=== PATIENT | male | born 1945 | race Hispanic/Latino ===

== ENCOUNTER 2021-10-13 21:40 | Emergency (ER) | payer MEDICARE, OTHER ==
--- OUTSIDE RECORDS SUMMARY | 2021-10-13 21:46 | XMS REPORT | Continuity of Care Document ---
:1945 Author Organization [facility] t Address [address] [place] [address] Care Team Providers Name Role Phone Solitario, A Primary Care Physician PEDRO CALVILLO Attending Clinician Unavailable GUILLE, A Attending Clinician Unavailable Patricia Hall MD Attending Clinician Guille CAPONE, A Attending Clinician Doctor Unassigned, Name Attending Clinician Unavailable Pedro Calvillo MD Attending Clinician Daylin ROSALES Attending Clinician Rm, Surg Spec Procedure Attending Clinician Unavailable DAYLIN Attending Clinician Unavailable Nurse, Surgery Gu Attending Clinician Unavailable Abby OLVERAP, N Attending Clinician Pob, Lab Main Attending Clinician Unavailable Krishna OD Attending Clinician KRISHNA Attending Clinician Unavailable PATRICIA HALL Attending Clinician Unavailable PATRICIA HALL Attending Clinician Unavailable Payers Payer Name Policy Type Policy Number Effective Date Expiration Date S vivian JOHNSON/YVONNE [id number] 2020 MEDICARE ADVANTAGE 00:00:00 Problems Condition Condition Condition Status Onset Resolution Last Treating Co mments Source Name Details Category Date Date Treatment Clinician Date Hyperlipid Hyperlipid Disease Active U karuna emia emia 4-15 ity of 00:00: [place] [address] Medical Branch 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 2-19 it[place] [facility] [facility] knee knee Branch 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 0-14 ity of mellitus mellitus 00:00: [place] [facility] Branch Hypertensi Hypertensi Disease Active 2018-09 U nivers on on 0-14 ity of 00:00: [place] [facility] Chronic Chronic Disease Active 2018-09 Univers heart heart 0-14 ity of disease disease 00:00: [place] [facility] Arthritis Arthritis Disease Active 2018-09 Uni vers of both of both 0-14 ity of hips hips 00:00: [place] [facility] Allergies, Adverse Reactions, Alerts Allergy Allergy Status Severity Reaction(s) Onset Inactive Treating Comm ents Source Name Type Date Date Clinician NO KNOWN Drug Active Univers ALLERGIE Class ity of S [facility] Social History Social Habit Start Date Stop Date Quantity Comments Source History of tobacco Cigarette Smoker University of use [facility] Exposure to Not sure [facility] SARS-CoV-2 (event) [facility] Cigarettes smoked 2020-06-02 2020-06-02 Univers ity of current (pack per 00:00:00 00:00:00 ) - Reported Branch Tobacco use and 2020-06-02 2020-06-02 Never used Universit y of exposure 00:00:00 00:00:00 [facility] Sex Ass[birth year] Universit y of 00:00:00 00:00:00 [facility] Smoking Status Start Date Stop Date Source Current every day smoker 2020-06-02 00:00:00 Uni versity of [facility] Medications Ordered Filled Start Stop Current Ordering Indication Dosage Frequency Signature Comments Components Source Medication Medication Date Date Medication? Clinician (SIG) Name Name galantamine Yes [id number] 8mg Take 1 Univers 8 mg tablet 1-24 tablet by ity of 00:00: mouth 2 [place] (two) Medical times [place] daily. galantamine Yes [id number] 8mg Take 1 Univers 8 mg tablet 9-03 tablet by ity of 00:00: mouth 2 [place] (two) Medical times [place] daily. galantamine Yes [id number] 8mg Take 1 Univers 8 mg tablet 9-03 tablet by ity of 00:00: mouth 2 [place] (two) Medical times [place] daily. galantamine 2021-0 Yes [id number] 8mg Take 1 Univers 8 mg tablet 9-03 tablet by ity of 00:00: mouth 2 [place] 00 (two) Medical times Branch daily. galantamine 2020-0 Yes [id number] 8mg Take 1 Univers 8 mg tablet 9-03 tablet by ity of 00:00: mouth 2 [place] 00 (two) Medical times Branch daily. galantamine 2020-0 Yes [id number] 8mg Take 1 Univers 8 mg tablet 9-03 tablet by ity of 00:00: mouth 2 [place] 00 (two) Medical times Branch daily. galantamine 2020-0 Yes [id number] 8mg Take 1 Univers 8 mg tablet 9-03 tablet by ity of 00:00: mouth 2 [place] 00 (two) Medical times Branch daily. galantamine 2020-0 Yes [id number] 8mg Take 1 Univers 8 mg tablet 9-03 tablet by ity of 00:00: mouth 2 [place] 00 (two) Medical times Branch daily. galantamine 2020-0 Yes [id number] 8mg Take 1 Univers 8 mg tablet 9-03 tablet by ity of 00:00: mouth 2 [place] 00 (two) Medical times Branch daily. galantamine 2020-2021- No [id number] 8mg Take 1 Univers 8 mg tablet 9-03 01-24 tablet by it y of 00:00: 00:00 mouth 2 [place] 00 :00 (two) Medical times Branch daily. tamsulosin 2020- No [id number] .4mg Take 1 Univers (FLOMAX) 04-27 9102 capsule by ity of 0.4 mg 24 00:00: 04:59 mouth [place] hr capsule 00 :00 daily for Medi manohar 30 days. Branch tamsulosin 2020- No [id number] .4mg Take 1 Univers (FLOMAX) 04-27 9102 capsule by ity of 0.4 mg 24 00:00: 04:59 mouth [place] hr capsule 00 :00 daily for Medi manohar 30 days. Branch iopamidol 2020- No [id number] 100mL 100 mL, Univers (ISOVUE 04-10 Intravenou ity o f 370-500 mL) 16:46: 16:46 s, ONCE, 1 [place] injection 00 :00 dose, Fri Medic al 100 mL 04/10/21 at Branch 1200, Routine cephALEXin 2021-0 Yes [id number] 500mg Take 1 Univers (KEFLEX) 7-01 capsule by ity o f 500 mg 00:00: mouth 2 [place] capsule 00 (two) Medical times Branch daily. cephALEXin 2021-0 Yes [id number] 500mg Take 1 Univers (KEFLEX) 7-01 capsule by ity o f 500 mg 00:00: mouth 2 [place] capsule 00 (two) Medical times Branch daily. cephALEXin 2021-0 Yes [id number] 500mg Take 1 Univers (KEFLEX) 7-01 capsule by ity o f 500 mg 00:00: mouth 2 [place] capsule 00 (two) Medical times Branch daily. cephALEXin 2021-0 Yes [id number] 500mg Take 1 Univers (KEFLEX) 7-01 capsule by ity o f 500 mg 00:00: mouth 2 [place] capsule 00 (two) Medical times Branch daily. cephALEXin 2021-0 Yes [id number] 500mg Take 1 Univers (KEFLEX) 7-01 capsule by ity o f 500 mg 00:00: mouth 2 [place] capsule 00 (two) Medical times Branch daily. cephALEXin 2021-0 Yes [id number] 500mg Take 1 Univers (KEFLEX) 7-01 capsule by ity o f 500 mg 00:00: mouth 2 [place] capsule 00 (two) Medical times Branch daily. cephALEXin 2021-0 Yes [id number] 500mg Take 1 Univers (KEFLEX) 7-01 capsule by ity o f 500 mg 00:00: mouth 2 [place] capsule 00 (two) Medical times Branch daily. cephALEXin 2021-0 Yes [id number] 500mg Take 1 Univers (KEFLEX) 7-01 capsule by ity o f 500 mg 00:00: mouth 2 [place] capsule 00 (two) Medical times Branch daily. cephALEXin 2021-0 Yes [id number] 500mg Take 1 Univers (KEFLEX) 7-01 capsule by ity o f 500 mg 00:00: mouth 2 [place] capsule 00 (two) Medical times Branch daily. cephALEXin 2021-0 Yes [id number] 500mg Take 1 Univers (KEFLEX) 7-01 capsule by ity o f 500 mg 00:00: mouth 2 [place] capsule 00 (two) Medical times Branch daily. cephALEXin 2021-0 Yes [id number] 500mg Take 1 Univers (KEFLEX) 7-01 capsule by ity o f 500 mg 00:00: mouth 2 [place] capsule 00 (two) Medical times Branch daily. cephALEXin 2021-0 Yes [id number] 500mg Take 1 Univers (KEFLEX) 7-01 capsule by ity o f 500 mg 00:00: mouth 2 [place] capsule 00 (two) Medical times Branch daily. cephALEXin 2021-0 Yes [id number] 500mg Take 1 Univers (KEFLEX) 7-01 capsule by ity o f 500 mg 00:00: mouth 2 [place] capsule 00 (two) Medical times Branch daily. cephALEXin 2021-0 Yes [id number] 500mg Take 1 Univers (KEFLEX) 7-01 capsule by ity o f 500 mg 00:00: mouth 2 [place] capsule 00 (two) Medical times Branch daily. cephALEXin 2021-0 Yes [id number] 500mg Take 1 Univers (KEFLEX) 7-01 capsule by ity o f 500 mg 00:00: mouth 2 [place] capsule 00 (two) Medical times Branch daily. cephALEXin 2021-0 Yes [id number] 500mg Take 1 Univers (KEFLEX) 7-01 capsule by ity o f 500 mg 00:00: mouth 2 [place] capsule 00 (two) Medical times Branch daily. cephALEXin 2021-0 Yes [id number] 500mg Take 1 Univers (KEFLEX) 7-01 capsule by ity o f 500 mg 00:00: mouth 2 [place] capsule 00 (two) Medical times Branch daily. cephALEXin 2021-0 Yes [id number] 500mg Take 1 Univers (KEFLEX) 7-01 capsule by ity o f 500 mg 00:00: mouth 2 [place] capsule 00 (two) Medical times Branch daily. cephALEXin 2021-0 Yes [id number] 500mg Take 1 Univers (KEFLEX) 7-01 capsule by ity o f 500 mg 00:00: mouth 2 [place] capsule 00 (two) Medical times Branch daily. cephALEXin 2021-0 Yes [id number] 500mg Take 1 Univers (KEFLEX) 7-01 capsule by ity o f 500 mg 00:00: mouth 2 [place] capsule 00 (two) Medical times Branch daily. cephALEXin 2021-0 Yes [id number] 500mg Take 1 Univers (KEFLEX) 7-01 capsule by ity o f 500 mg 00:00: mouth 2 [place] capsule 00 (two) Medical times Branch daily. cephALEXin 2021-0 Yes [id number] 500mg Take 1 Univers (KEFLEX) 7-01 capsule by ity o f 500 mg 00:00: mouth 2 [facility] (two) Medical times Branch daily. galantamine 2020-0 Yes [id number] 8mg Take 1 Univers 8 mg tablet 3-29 tablet by ity of 00:00: mouth 2 [place] (two) Medical times Branch daily. galantamine 2020-0 Yes [id number] 8mg Take 1 Univers 8 mg tablet 3-29 tablet by ity of 00:00: mouth 2 [place] (two) Medical times Branch daily. galantamine 2020-0 Yes [id number] 8mg Take 1 Univers 8 mg tablet 3-29 tablet by ity of 00:00: mouth 2 [place] (two) Medical times Branch daily. galantamine 2020-0 Yes [id number] 8mg Take 1 Univers 8 mg tablet 3-29 tablet by ity of 00:00: mouth 2 [place] (two) Medical times Branch daily. galantamine 2020-0 Yes [id number] 8mg Take 1 Univers 8 mg tablet 3-29 tablet by ity of 00:00: mouth 2 [place] (two) Medical times Branch daily. galantamine 2020-0 Yes [id number] 8mg Take 1 Univers 8 mg tablet 3-29 tablet by ity of 00:00: mouth 2 [place] (two) Medical times Branch daily. galantamine 2020-0 Yes [id number] 8mg Take 1 Univers 8 mg tablet 3-29 tablet by ity of 00:00: mouth 2 [place] (two) Medical times Branch daily. galantamine 2020-0 Yes [id number] 8mg Take 1 Univers 8 mg tablet 3-29 tablet by ity of 00:00: mouth 2 [place] (two) Medical times Branch daily. galantamine 2020-0 Yes [id number] 8mg Take 1 Univers 8 mg tablet 3-29 tablet by ity of 00:00: mouth 2 [place] (two) Medical times Branch daily. galantamine 2020-0 Yes [id number] 8mg Take 1 Univers 8 mg tablet 3-29 tablet by ity of 00:00: mouth 2 [place] (two) Medical times Branch daily. galantamine 2020-0 Yes [id number] 8mg Take 1 Univers 8 mg tablet 3-29 tablet by ity of 00:00: mouth [place] (two) Medical times Branch daily. galantamine 2020-0 Yes [id number] 8mg Take 1 Univers 8 mg tablet 3-29 tablet by ity of 00:00: mouth [place] (two) Medical times Branch daily. galantamine 2020-0 Yes [id number] 8mg Take 1 Univers 8 mg tablet 3-29 tablet by ity of 00:00: mouth [place] (two) Medical times Branch daily. galantamine 2020-0 Yes [id number] 8mg Take 1 Univers 8 mg tablet 3-29 tablet by ity of 00:00: mouth [place] (two) Medical times Branch daily. galantamine 2020-0 Yes [id number] 8mg Take 1 Univers 8 mg tablet 3-29 tablet by ity of 00:00: mouth [place] (two) Medical times Branch daily. galantamine 2020-0 Yes [id number] 8mg Take 1 Univers 8 mg tablet 3-29 tablet by ity of 00:00: mouth [place] (two) Medical times Branch daily. galantamine 2020-0 Yes [id number] 8mg Take 1 Univers 8 mg tablet 3-29 tablet by ity of 00:00: mouth [place] (two) Medical times Branch daily. galantamine 2020-0 Yes [id number] 8mg Take 1 Univers 8 mg tablet 3-29 tablet by ity of 00:00: mouth [place] (two) Medical times Branch daily. galantamine 2020-0 Yes [id number] 8mg Take 1 Univers 8 mg tablet 3-29 tablet by ity of 00:00: mouth [place] (two) Medical times Branch daily. galantamine 2020-0 2020- No [id number] 8mg Take 1 Univers 8 mg tablet 3-29 -03 tablet by it y of 00:00: 00:00 mouth 2 [place] 00 :00 (two) Medical times Branch daily. traZODone 2019- Yes [id number] 50mg Take 1 Uni vers 50 mg 2-11 tablet by ity of tablet 00:00: mouth at [place] [address] bedtime. Medical Branch traZODone 2019-09 Yes [id number] 50mg Take 1 Uni vers 50 mg 2-11 tablet by ity of tablet 00:00: mouth at [place] [address] bedtime. Medical Branch traZODone 2020-1 Yes [id number] 50mg Take 1 Uni vers 50 mg 2-11 tablet by ity of tablet 00:00: mouth at [place] [address] bedtime. Medical Branch traZODone 2019- Yes [id number] 50mg Take 1 Uni vers 50 mg 2-11 tablet by ity of tablet 00:00: mouth at [place] [address] bedtime. Medical Branch traZODone 2019- Yes [id number] 50mg Take 1 Uni vers 50 mg 2-11 tablet by ity of tablet 00:00: mouth at [place] [address] bedtime. Medical Branch traZODone 2019- Yes [id number] 50mg Take 1 Uni vers 50 mg 2-11 tablet by ity of tablet 00:00: mouth at [place] [address] bedtime. Medical Branch traZODone 2019- Yes [id number] 50mg Take 1 Uni vers 50 mg 2-11 tablet by ity of tablet 00:00: mouth at [place] [address] bedtime. Medical Branch traZODone 2019- Yes [id number] 50mg Take 1 Uni vers 50 mg 2-11 tablet by ity of tablet 00:00: mouth at [place] [address] bedtime. Medical Branch traZODone 2019- Yes [id number] 50mg Take 1 Uni vers 50 mg 2-11 tablet by ity of tablet 00:00: mouth at [place] [address] bedtime. Medical Branch traZODone 2019- Yes [id number] 50mg Take 1 Uni vers 50 mg 2-11 tablet by ity of tablet 00:00: mouth at [place] [address] bedtime. Medical Branch traZODone 2019- Yes [id number] 50mg Take 1 Uni vers 50 mg 2-11 tablet by ity of tablet 00:00: mouth at [place] [address] bedtime. Medical Branch traZODone 2019-1 Yes [id number] 50mg Take 1 Uni vers 50 mg 2-11 tablet by ity of tablet 00:00: mouth at [place] [address] bedtime. Medical Branch traZODone 2020- Yes [id number] 50mg Take 1 Uni vers 50 mg 2-11 tablet by ity of tablet 00:00: mouth at [place] [address] bedtime. Medical Branch traZODone 2020- Yes [id number] 50mg Take 1 Uni vers 50 mg 2-11 tablet by ity of tablet 00:00: mouth at [place] [address] bedtime. Medical Branch traZODone 2019-1 Yes [id number] 50mg Take 1 Uni vers 50 mg 2-11 tablet by ity of tablet 00:00: mouth at [place] [address] bedtime. Medical Branch traZODone 2020-1 Yes [id number] 50mg Take 1 Uni vers 50 mg 2-11 tablet by ity of tablet 00:00: mouth at [place] [address] bedtime. Medical Branch traZODone 2019- Yes [id number] 50mg Take 1 Uni vers 50 mg 2-11 tablet by ity of tablet 00:00: mouth at [place] [address] bedtime. Medical Branch traZODone 2019- Yes [id number] 50mg Take 1 Uni vers 50 mg 2-11 tablet by ity of tablet 00:00: mouth at [place] [address] bedtime. Medical Branch traZODone 2019- Yes [id number] 50mg Take 1 Uni vers 50 mg 2-11 tablet by ity of tablet 00:00: mouth at [place] [address] bedtime. Medical Branch traZODone 2019- Yes [id number] 50mg Take 1 Uni vers 50 mg 2-11 tablet by ity of tablet 00:00: mouth at [place] [address] bedtime. Medical Branch traZODone 2019- Yes [id number] 50mg Take 1 Uni vers 50 mg 2-11 tablet by ity of tablet 00:00: mouth at [place] [address] bedtime. Medical Branch traZODone 2019- Yes [id number] 50mg Take 1 Uni vers 50 mg 2-11 tablet by ity of tablet 00:00: mouth at [place] [address] bedtime. Medical Branch traZODone 2019- Yes [id number] 50mg Take 1 Uni vers 50 mg 2-11 tablet by ity of tablet 00:00: mouth at [place] [address] bedtime. Medical Branch traZODone 2019-1 Yes [id number] 50mg Take 1 Uni vers 50 mg 2-11 tablet by ity of tablet 00:00: mouth at [place] [address] bedtime. Medical Branch traZODone 2020-1 Yes [id number] 50mg Take 1 Uni vers 50 mg 2-11 tablet by ity of tablet 00:00: mouth at [place] [address] bedtime. Medical Branch traZODone 2020-1 Yes [id number] 50mg Take 1 Uni vers 50 mg 2-11 tablet by ity of tablet 00:00: mouth at [place] [address] bedtime. Medical Branch traZODone 2019-1 Yes [id number] 50mg Take 1 Uni vers 50 mg 2-11 tablet by ity of tablet 00:00: mouth at [place] [address] bedtime. Medical Branch traZODone 2019- Yes [id number] 50mg Take 1 Uni vers 50 mg 2-11 tablet by ity of tablet 00:00: mouth at [place] [address] bedtime. Medical Branch traZODone 2019- Yes [id number] 50mg Take 1 Uni vers 50 mg 2-11 tablet by ity of tablet 00:00: mouth at [place] [address] bedtime. Medical Branch traZODone 2019- Yes [id number] 50mg Take 1 Uni vers 50 mg 2-11 tablet by ity of tablet 00:00: mouth at [place] [address] bedtime. Medical Branch traZODone 2019- Yes [id number] 50mg Take 1 Uni vers 50 mg 2-11 tablet by ity of tablet 00:00: mouth at [place] [address] bedtime. Medical Branch traZODone 2019- Yes [id number] 50mg Take 1 Uni vers 50 mg 2-11 tablet by ity of tablet 00:00: mouth at [place] [address] bedtime. Medical Branch traZODone 2019- Yes [id number] 50mg Take 1 Uni vers 50 mg 2-11 tablet by ity of tablet 00:00: mouth at [place] [address] bedtime. Medical Branch galantamine 2019- Yes [id number] 8mg Take 1 Univers 8 mg tablet 1-16 tablet by ity of 00:00: mouth 2 [place] (two) Medical times Branch daily. galantamine 2019-09 Yes [id number] 8mg Take 1 Univers 8 mg tablet 1-16 tablet by ity of 00:00: mouth 2 [place] (two) Medical times Branch daily. galantamine 2019- Yes [id number] 8mg Take 1 Univers 8 mg tablet 1-16 tablet by ity of 00:00: mouth 2 [place] (two) Medical times Branch daily. galantamine 2019- Yes [id number] 8mg Take 1 Univers 8 mg tablet 1-16 tablet by ity of 00:00: mouth 2 [place] (two) Medical times Branch daily. galantamine 2019- Yes [id number] 8mg Take 1 Univers 8 mg tablet 1-16 tablet by ity of 00:00: mouth 2 [place] (two) Medical times Branch daily. galantamine 2019- Yes [id number] 8mg Take 1 Univers 8 mg tablet 1-16 tablet by ity of 00:00: mouth 2 (two) Medical times Branch daily. galantamine 2019-09 Yes [id number] 8mg Take 1 Univers 8 mg tablet 1-16 tablet by ity of 00:00: mouth 2 00 (two) Medical times Branch daily. galantamine 2019-09- No [id number] 8mg Take 1 Univers 8 mg tablet 10-04 tablet by it y of 00:00: 00:00 mouth 2 00 :00 (two) Medical times Branch daily. galantamine 2019-09- No [id number] 8mg Take 1 Univers 8 mg tablet 09-27-16 tablet by it y of 00:00: 00:00 mouth 2 [place] 00 :00 (two) Medical times Branch daily. galantamine 2019-09- No [id number] 8mg Take 1 Univers 8 mg tablet 09-27-16 tablet by it y of 00:00: 00:00 mouth 2 [place] 00 :00 (two) Medical times Branch daily. galantamine 2019-09- No [id number] 8mg Take 1 Univers 8 mg tablet 09-27-16 tablet by it y of 00:00: 00:00 mouth 2 [place] 00 :00 (two) Medical times Branch daily. galantamine 2019- Yes 4mg Take 1 Univ ers 4 mg tablet 0-16 tablet by ity of 00:00: mouth (two) Medical times Branch daily. galantamine 2019- Yes 4mg Take 1 Univ ers 4 mg tablet 0-16 tablet by ity of 00:00: mouth [place] (two) Medical times Branch daily. galantamine 2019- Yes 4mg Take 1 Univ ers 4 mg tablet 0-16 tablet by ity of 00:00: mouth 2 00 (two) Medical times Branch daily. galantamine 2020- Yes 4mg Take 1 Univ ers 4 mg tablet 0-16 tablet by ity of 00:00: mouth 2 00 (two) Medical times Branch daily. galantamine 2020-1 Yes 4mg Take 1 Univ ers 4 mg tablet 0-16 tablet by ity of 00:00: mouth 2 00 (two) Medical times Branch daily. galantamine 2019- Yes 4mg Take 1 Univ ers 4 mg tablet 0-16 tablet by ity of 00:00: mouth 2 [place] 00 (two) Medical times Branch daily. galantamine 2019- 2020- No 4mg Take 1 Uni vers 4 mg tablet 0-16 11-09 tablet by it y of 00:00: 00:00 mouth 2 [place] 00 :00 (two) Medical times Branch daily. galantamine 2019- 2020- No 4mg Take 1 Uni vers 4 mg tablet 0-16 11-09 tablet by it y of 00:00: 00:00 mouth 2 [place] 00 :00 (two) Medical times Branch daily. galantamine 2019- 2020- No 4mg Take 1 Uni vers 4 mg tablet 0-16 11-09 tablet by it y of 00:00: 00:00 mouth 2 [place] 00 :00 (two) Medical times Branch daily. galantamine 2019-1 Yes 4mg Take 1 Univ ers 4 mg tablet 0-06 tablet by ity of 00:00: mouth 2 [place] 00 (two) Medical times Branch daily. galantamine 2019- 2020- No 4mg Take 1 Uni vers 4 mg tablet 0-06 10-16 tablet by it y of 00:00: 00:00 mouth 2 [place] 00 :00 (two) Medical times Branch daily. galantamine 2019- 2020- No 4mg Take 1 Uni vers 4 mg tablet 0-06 10-16 tablet by it y of 00:00: 00:00 mouth 2 [place] 00 :00 (two) Medical times Branch daily. galantamine 2019- 2020- No 4mg Take 1 Uni vers 4 mg tablet 0-06 10-16 tablet by it y of 00:00: 00:00 mouth 2 [place] 00 :00 (two) Medical times Branch daily. galantamine 2019- 2020- No 4mg Take 1 Uni vers 4 mg tablet 0-06 10-16 tablet by it y of 00:00: 00:00 mouth 2 [place] 00 :00 (two) Medical times Branch daily. galantamine 2019- 2020- No 4mg Take 1 Uni vers 4 mg tablet 0-06 10-16 tablet by it y of 00:00: 00:00 mouth 2 [place] 00 :00 (two) Medical times Branch daily. galantamine 2019-1 Yes 4mg Take 1 Univ ers 4 mg tablet 0-05 tablet by ity of 00:00: mouth 2 [place] 00 (two) Medical times Branch daily. galantamine 2019-1 Yes 4mg Take 1 Univ ers 4 mg tablet 0-05 tablet by ity of 00:00: mouth 2 [place] (two) Medical times Branch daily. galantamine 2020-1 Yes 4mg Take 1 Univ ers 4 mg tablet 0-05 tablet by ity of 00:00: mouth 2 [place] (two) Medical times Branch daily. galantamine 2020- 2020- No 4mg Take 1 Uni vers 4 mg tablet 0-05 10-06 tablet by it y of 00:00: 00:00 mouth 2 [place] 00 :00 (two) Medical times Branch daily. metFORMIN 2020-0 Yes 500mg Take 500 Uni vers 500 mg 9-14 mg by ity of tablet 18:23: mouth [address] [place] [address] (two) Medical times Branch daily with meals. metFORMIN 2020-0 Yes 500mg Take 500 Uni vers 500 mg 9-14 mg by ity of tablet 18:23: mouth [address] [place] [address] (two) Medical times Branch daily with meals. metFORMIN 2020-0 Yes 500mg Take 500 Uni vers 500 mg 9-14 mg by ity of tablet 18:23: mouth [address] [place] [address] (two) Medical times Branch daily with meals. metFORMIN 2020-0 Yes 500mg Take 500 Uni vers 500 mg 9-14 mg by ity of tablet 18:23: mouth [address] [place] [address] (two) Medical times Branch daily with meals. metFORMIN 2020-0 Yes 500mg Take 500 Uni vers 500 mg 9-14 mg by ity of tablet 18:23: mouth [address] [place] [address] (two) Medical times Branch daily with meals. metFORMIN 2020-0 Yes 500mg Take 500 Uni vers 500 mg 9-14 mg by ity of tablet 18:23: mouth [address] [place] [address] (two) Medical times Branch daily with meals. metFORMIN 2020-0 Yes 500mg Take 500 Uni vers 500 mg 9-14 mg by ity of tablet 18:23: mouth [address] [place] [address] (two) Medical times Branch daily with meals. metFORMIN 2020-0 Yes 500mg Take 500 Uni vers 500 mg 9-14 mg by ity of tablet 18:23: mouth [address] [place] [address] (two) Medical times Branch daily with meals. metFORMIN 2020-0 Yes 500mg Take 500 Uni vers 500 mg 9-14 mg by ity of tablet 18:23: mouth [address] [place] [address] (two) Medical times Branch daily with meals. metFORMIN 2020-0 Yes 500mg Take 500 Uni vers 500 mg 9-14 mg by ity of tablet 18:23: mouth 2 [place] [address] (two) Medical times Branch daily with meals. metFORMIN 2020-0 Yes 500mg Take 500 Uni vers 500 mg 9-14 mg by ity of tablet 18:23: mouth 2 [place] [address] (two) Medical times Branch daily with meals. metFORMIN 2020-0 Yes 500mg Take 500 Uni vers 500 mg 9-14 mg by ity of tablet 18:23: mouth 2 [place] 19 (two) Medical times Branch daily with meals. metFORMIN 2020-0 Yes 500mg Take 500 Uni vers 500 mg 9-14 mg by ity of tablet 18:23: mouth 2 [place] 19 (two) Medical times Branch daily with meals. metFORMIN 2020-0 Yes 500mg Take 500 Uni vers 500 mg 9-14 mg by ity of tablet 18:23: mouth 2 [place] 19 (two) Medical times Branch daily with meals. metFORMIN 2020-0 Yes 500mg Take 500 Uni vers 500 mg 9-14 mg by ity of tablet 18:23: mouth 2 [place] [address] (two) Medical times Branch daily with meals. metFORMIN 2020-0 Yes 500mg Take 500 Uni vers 500 mg 9-14 mg by ity of tablet 18:23: mouth [address] [place] [address] (two) Medical times Branch daily with meals. metFORMIN 2020-0 Yes 500mg Take 500 Uni vers 500 mg 9-14 mg by ity of tablet 18:23: mouth 2 [place] [address] (two) Medical times Branch daily with meals. metFORMIN 2020-0 Yes 500mg Take 500 Uni vers 500 mg 9-14 mg by ity of tablet 18:23: mouth 2 [place] [address] (two) Medical times Branch daily with meals. metFORMIN 2020-0 Yes 500mg Take 500 Uni vers 500 mg 9-14 mg by ity of tablet 18:23: mouth 2 [place] [address] (two) Medical times Branch daily with meals. metFORMIN 2020-0 Yes 500mg Take 500 Uni vers 500 mg 9-14 mg by ity of tablet 18:23: mouth 2 [place] 19 (two) Medical times Branch daily with meals. metFORMIN 2020-0 Yes 500mg Take 500 Uni vers 500 mg 9-14 mg by ity of tablet 18:23: mouth 2 [place] 19 (two) Medical times Branch daily with meals. metFORMIN 2020-0 Yes 500mg Take 500 Uni vers 500 mg 9-14 mg by ity of tablet 18:23: mouth 2 [place] [address] (two) Medical times Branch daily with meals. metFORMIN 2020-0 Yes 500mg Take 500 [facility] vers 500 mg 9-14 mg by ity of tablet 18:23: mouth 2 [place] [address] (two) Medical times Branch daily with meals. metFORMIN 2020-0 Yes 500mg Take 500 [facility] vers 500 mg 9-14 mg by ity of tablet 18:23: mouth 2 [place] [address] (two) Medical times Branch daily with meals. metFORMIN 2020-0 Yes 500mg Take 500 [facility] vers 500 mg 9-14 mg by ity of tablet 18:23: mouth 2 [place] [address] (two) Medical times Branch daily with meals. metFORMIN 2020-0 Yes 500mg Take 500 [facility] vers 500 mg 9-14 mg by ity of tablet 18:23: mouth 2 [place] [address] (two) Medical times Branch daily with meals. metFORMIN 2020-0 Yes 500mg Take 500 [facility] vers 500 mg 9-14 mg by ity of tablet 18:23: mouth 2 [place] [address] (two) Medical times Branch daily with meals. metFORMIN 2020-0 Yes 500mg Take 500 [facility] vers 500 mg 9-14 mg by ity of tablet 18:23: mouth [address] [place] [address] (two) Medical times Branch daily with meals. metFORMIN 2020-0 Yes 500mg Take 500 [facility] vers 500 mg 9-14 mg by ity of tablet 18:23: mouth [address] [place] [address] (two) Medical times Branch daily with meals. metFORMIN 2020-0 Yes 500mg Take 500 [facility] vers 500 mg 9-14 mg by ity of tablet 18:23: mouth 2 [place] [address] (two) Medical times Branch daily with meals. metFORMIN 2020-0 Yes 500mg Take 500 [facility] vers 500 mg 9-14 mg by ity of tablet 18:23: mouth 2 [place] [address] (two) Medical times Branch daily with meals. metFORMIN 2020-0 Yes 500mg Take 500 [facility] vers 500 mg 9-14 mg by ity of tablet 18:23: mouth 2 [place] [address] (two) Medical times Branch daily with meals. metFORMIN 2020-0 Yes 500mg Take 500 [facility] vers 500 mg 9-14 mg by ity of tablet 18:23: mouth 2 [place] [address] (two) Medical times Branch daily with meals. metFORMIN 2020-0 Yes 500mg Take 500 [facility] vers 500 mg 9-14 mg by ity of tablet 18:23: mouth 2 [place] [address] (two) Medical times Branch daily with meals. metFORMIN 2020-0 Yes 500mg Take 500 [facility] vers 500 mg 9-14 mg by ity of tablet 18:23: mouth 2 [place] [address] (two) Medical times Branch daily with meals. metFORMIN 2020-0 Yes 500mg Take 500 [facility] vers 500 mg 9-14 mg by ity of tablet 18:23: mouth 2 [place] [address] (two) Medical times Branch daily with meals. metFORMIN 2020-0 Yes 500mg Take 500 [facility] vers 500 mg 9-14 mg by ity of tablet 18:23: mouth 2 [place] 19 (two) Medical times Branch daily with meals. metFORMIN 2020-0 Yes 500mg Take 500 [facility] vers 500 mg 9-14 mg by ity of tablet 18:23: mouth 2 [place] 19 (two) Medical times Branch daily with meals. metFORMIN 2020-0 Yes 500mg Take 500 Uni vers 500 mg 9-14 mg by ity of tablet 18:23: mouth 2 [place] 19 (two) Medical times Branch daily with meals. metFORMIN 2020-0 Yes 500mg Take 500 [facility] vers 500 mg 9-14 mg by ity of tablet 18:23: mouth 2 [place] [address] (two) Medical times Branch daily with meals. metFORMIN 2020-0 Yes 500mg Take 500 [facility] vers 500 mg 9-14 mg by ity of tablet 18:23: mouth [address] [place] [address] (two) Medical times Branch daily with meals. metFORMIN 2020-0 Yes 500mg Take 500 [facility] vers 500 mg 9-14 mg by ity of tablet 18:23: mouth 2 [place] [address] (two) Medical times Branch daily with meals. metFORMIN 2020-0 Yes 500mg Take 500 [facility] vers 500 mg 9-14 mg by ity of tablet 18:23: mouth 2 [place] [address] (two) Medical times Branch daily with meals. metFORMIN 2020-0 Yes 500mg Take 500 [facility] vers 500 mg 9-14 mg by ity of tablet 18:23: mouth 2 [place] [address] (two) Medical times Branch daily with meals. metFORMIN 2020-0 Yes 500mg Take 500 [facility] vers 500 mg 9-14 mg by ity of tablet 18:23: mouth 2 [place] 19 (two) Medical times Branch daily with meals. metFORMIN 2020-0 Yes 500mg Take 500 Uni vers 500 mg 9-14 mg by ity of tablet 18:23: mouth 2 [place] 19 (two) Medical times Branch daily with meals. metFORMIN 2020-0 Yes 500mg Take 500 [facility] vers 500 mg 9-14 mg by ity of tablet 18:23: mouth 2 [place] [address] (two) Medical times Branch daily with meals. metFORMIN 2020-0 Yes 500mg Take 500 Uni vers 500 mg 9-14 mg by ity of tablet 18:23: mouth 2 [place] 19 (two) Medical times Branch daily with meals. metFORMIN 2020-0 Yes 500mg Take 500 Uni vers 500 mg 9-14 mg by ity of tablet 18:23: mouth 2 [place] 19 (two) Medical times Branch daily with meals. metFORMIN 2020-0 Yes 500mg Take 500 Uni vers 500 mg 9-14 mg by ity of tablet 13:23: mouth 2 [place] 19 (two) Medical times Branch daily with meals. metFORMIN 2020-0 Yes 500mg Take 500 Uni vers 500 mg 9-14 mg by ity of tablet 13:23: mouth 2 [place] 19 (two) Medical times Branch daily with meals. metFORMIN 2020-0 Yes 500mg Take 500 Uni vers 500 mg 9-14 mg by ity of tablet 13:23: mouth 2 [place] 19 (two) Medical times Branch daily with meals. metFORMIN 2020-0 Yes 500mg Take 500 Uni vers 500 mg 9-14 mg by ity of tablet 13:23: mouth 2 [place] 19 (two) Medical times Branch daily with meals. metFORMIN 2020-0 Yes 500mg Take 500 [facility] vers 500 mg 9-14 mg by ity of tablet 13:23: mouth 2 [place] 19 (two) Medical times Branch daily with meals. metFORMIN 2020-0 Yes 500mg Take 500 [facility] vers 500 mg 9-14 mg by ity of tablet 13:23: mouth 2 [place] 19 (two) Medical times Branch daily with meals. rivastigmin 2020-0 Yes [id number] 1{patch Apply 1 [facility] e 4.6 mg/24 9-14 } Patch to ity of hr patch 00:00: skin [place] 00 daily. Medical Branch rivastigmin 2020-0 Yes [id number] 1{patch Apply 1 [facility] e 4.6 mg/24 9-14 } Patch to ity of hr patch 00:00: skin [place] 00 daily. Medical Branch rivastigmin 2020-0 Yes [id number] 1{patch Apply 1 [facility] e 4.6 mg/24 9-14 } Patch to ity of hr patch 00:00: skin [place] 00 daily. Medical Branch rivastigmin 2020-0 Yes [id number] 1{patch Apply 1 [facility] e 4.6 mg/24 9-14 } Patch to ity of hr patch 00:00: skin [place] 00 daily. Medical Branch rivastigmin 2020-0 Yes [id number] 1{patch Apply 1 [facility] e 4.6 mg/24 9-14 } Patch to ity of hr patch 00:00: [facility] 00 daily. Medical Branch rivastigmin 2020-0 Yes [id number] 1{patch Apply 1 [facility] e 4.6 mg/24 9-14 } Patch to ity of hr patch 00:00: [facility] 00 daily. Medical Branch rivastigmin 2020-0 Yes [id number] 1{patch Apply 1 [facility] e 4.6 mg/24 9-14 } Patch to ity of hr patch 00:00: [facility] 00 daily. Medical Branch rivastigmin 2020-0 Yes [id number] 1{patch Apply 1 [facility] e 4.6 mg/24 9-14 } Patch to ity of hr patch 00:00: [facility] 00 daily. Medical Branch rivastigmin 2019-0 2020- No [id number] 1{patch Apply 1 [facility] e 4.6 mg/24 9-14 10-06 } Patch to ity of hr patch 00:00: 00:00 [facility] 00 :00 daily. Medical Branch rivastigmin 2019-0 2020- No [id number] 1{patch Apply 1 [facility] e 4.6 mg/24 9-14 10-06 } Patch to ity of hr patch 00:00: 00:00 [facility] 00 :00 daily. Medical Branch clopidogreL 2020-0 Yes 75mg Take 75 mg [facility] 75 mg 6-25 by mouth. ity of tablet 00:00: [place] [facility] glipiZIDE 2020-0 Yes 10mg Take 10 mg Un bridger 10 mg 6-25 by mouth. ity of tablet 00:00: Medical Branch losartan 50 2020-0 Yes Univer s mg tablet 6-25 ity of 00:00: [place] 00 Medical Branch metoprolol 2020-0 Yes Univers tartrate 50 6-25 ity of mg tablet 00:00: [place] [facility] pravastatin 2020-0 Yes 40mg Take 40 mg [facility] 40 mg 6-25 by mouth. ity of tablet 00:00: Medical Branch clopidogreL 2020-0 Yes 75mg Take 75 mg [facility] 75 mg 6-25 by mouth. ity of tablet 00:00: [place] [facility] glipiZIDE 2020-0 Yes 10mg Take 10 mg Un bridger 10 mg 6-25 by mouth. ity of tablet 00:00: [place] [facility] losartan 50 2020-0 Yes Univer s mg tablet 6-25 ity of 00:00: [place] [facility] metoprolol 2020-0 Yes Univers tartrate 50 6-25 ity of mg tablet 00:00: [place] [facility] pravastatin 2020-0 Yes 40mg Take 40 mg [facility] 40 mg 6-25 by mouth. ity of tablet 00:00: [place] [facility] Branch clopidogreL 2020-0 Yes 75mg Take 75 mg [facility] 75 mg 6-25 by mouth. ity of tablet 00:00: [place] [facility] Branch glipiZIDE 2020-0 Yes 10mg Take 10 mg Un bridger 10 mg 6-25 by mouth. ity of tablet 00:00: [place] [facility] Branch losartan 50 2020-0 Yes Univer s mg tablet 6-25 ity of 00:00: [place] [facility] metoprolol 2020-0 Yes Univers tartrate 50 6-25 ity of mg tablet 00:00: [address] pravastatin 2020-0 Yes 40mg Take 40 mg [facility] 40 mg 6-25 by mouth. ity of tablet 00:00: [address] clopidogreL 2020-0 Yes 75mg Take 75 mg [facility] 75 mg 6-25 by mouth. ity of tablet 00:00: [place] [facility] glipiZIDE 2020-0 Yes 10mg Take 10 mg Un bridger 10 mg 6-25 by mouth. ity of tablet 00:00: [address] losartan 50 2020-0 Yes Univer s mg tablet 6-25 ity of 00:00: [address] metoprolol 2020-0 Yes Univers tartrate 50 6-25 ity of mg tablet 00:00: [address] pravastatin 2020-0 Yes 40mg Take 40 mg [facility] 40 mg 6-25 by mouth. ity of tablet 00:00: [address] Branch clopidogreL 2020-0 Yes 75mg Take 75 mg [facility] 75 mg 6-25 by mouth. ity of tablet 00:00: [address] glipiZIDE 2020-0 Yes 10mg Take 10 mg Un bridger 10 mg 6-25 by mouth. ity of tablet 00:00: [address] Branch losartan 50 2020-0 Yes Univer s mg tablet 6-25 ity of 00:00: [place] 00 Medical Branch metoprolol 2020-0 Yes Univers tartrate 50 6-25 ity of mg tablet 00:00: [place] [facility] pravastatin 2020-0 Yes 40mg Take 40 mg [facility] 40 mg 6-25 by mouth. ity of tablet 00:00: [place] [facility] clopidogreL 2020-0 Yes 75mg Take 75 mg [facility] 75 mg 6-25 by mouth. ity of tablet 00:00: [place] [facility] glipiZIDE 2020-0 Yes 10mg Take 10 mg Un bridger 10 mg 6-25 by mouth. ity of tablet 00:00: [place] [facility] losartan 50 2020-0 Yes Univer s mg tablet 6-25 ity of 00:00: [place] [address] Medical Branch metoprolol 2020-0 Yes Univers tartrate 50 6-25 ity of mg tablet 00:00: [address] Branch pravastatin 2020-0 Yes 40mg Take 40 mg [facility] 40 mg 6-25 by mouth. ity of tablet 00:00: [place] [facility] clopidogreL 2020-0 Yes 75mg Take 75 mg [facility] 75 mg 6-25 by mouth. ity of tablet 00:00: [place] [address] Medical Branch glipiZIDE 2020-0 Yes 10mg Take 10 mg Un bridger 10 mg 6-25 by mouth. ity of tablet 00:00: [place] [address] Medical Branch losartan 50 2020-0 Yes Univer s mg tablet 6-25 ity of 00:00: [place] [address] Medical Branch metoprolol 2020-0 Yes Univers tartrate 50 6-25 ity of mg tablet 00:00: [place] [address] Medical Branch pravastatin 2020-0 Yes 40mg Take 40 mg [facility] 40 mg 6-25 by mouth. ity of tablet 00:00: [place] [address] Medical Branch clopidogreL 2020-0 Yes 75mg Take 75 mg [facility] 75 mg 6-25 by mouth. ity of tablet 00:00: [place] [address] Medical Branch glipiZIDE 2020-0 Yes 10mg Take 10 mg Un bridger 10 mg 6-25 by mouth. ity of tablet 00:00: [place] [address] Medical Branch losartan 50 2020-0 Yes Univer s mg tablet 6-25 ity of 00:00: [place] [address] Medical Branch metoprolol 2020-0 Yes Univers tartrate 50 6-25 ity of mg tablet 00:00: [place] [address] Medical Branch pravastatin 2020-0 Yes 40mg Take 40 mg [facility] 40 mg 6-25 by mouth. ity of tablet 00:00: [place] [facility] Branch clopidogreL 2020-0 Yes 75mg Take 75 mg [facility] 75 mg 6-25 by mouth. ity of tablet 00:00: [place] [facility] glipiZIDE 2020-0 Yes 10mg Take 10 mg Un bridger 10 mg 6-25 by mouth. ity of tablet 00:00: [place] [facility] Branch losartan 50 2020-0 Yes Univer s mg tablet 6-25 ity of 00:00: [place] [facility] metoprolol 2020-0 Yes Univers tartrate 50 6-25 ity of mg tablet 00:00: [address] pravastatin 2020-0 Yes 40mg Take 40 mg [facility] 40 mg 6-25 by mouth. ity of tablet 00:00: [address] Branch clopidogreL 2020-0 Yes 75mg Take 75 mg [facility] 75 mg 6-25 by mouth. ity of tablet 00:00: [place] [facility] glipiZIDE 2020-0 Yes 10mg Take 10 mg Un bridger 10 mg 6-25 by mouth. ity of tablet 00:00: [address] Branch losartan 50 2020-0 Yes Univer s mg tablet 6-25 ity of 00:00: [address] metoprolol 2020-0 Yes Univers tartrate 50 6-25 ity of mg tablet 00:00: [address] pravastatin 2020-0 Yes 40mg Take 40 mg [facility] 40 mg 6-25 by mouth. ity of tablet 00:00: [address] clopidogreL 2020-0 Yes 75mg Take 75 mg Univers 75 mg 6-25 by mouth. ity of tablet 00:00: [address] Branch glipiZIDE 2020-0 Yes 10mg Take 10 mg Un bridger 10 mg 6-25 by mouth. ity of tablet 00:00: [address] Branch losartan 50 2020-0 Yes Univer s mg tablet 6-25 ity of 00:00: [address] metoprolol 2020-0 Yes Univers tartrate 50 6-25 ity of mg tablet 00:00: [address] pravastatin 2020-0 Yes 40mg Take 40 mg [facility] 40 mg 6-25 by mouth. ity of tablet 00:00: [address] Branch clopidogreL 2020-0 Yes 75mg Take 75 mg [facility] 75 mg 6-25 by mouth. ity of tablet 00:00: [address] Branch glipiZIDE 2020-0 Yes 10mg Take 10 mg Un bridger 10 mg 6-25 by mouth. ity of tablet 00:00: [place] [facility] losartan 50 2020-0 Yes Univer s mg tablet 6-25 ity of 00:00: [place] [facility] metoprolol 2020-0 Yes Univers tartrate 50 6-25 ity of mg tablet 00:00: [place] [facility] Branch pravastatin 2020-0 Yes 40mg Take 40 mg [facility] 40 mg 6-25 by mouth. ity of tablet 00:00: [place] [facility] Branch clopidogreL 2020-0 Yes 75mg Take 75 mg [facility] 75 mg 6-25 by mouth. ity of tablet 00:00: [address] Branch glipiZIDE 2020-0 Yes 10mg Take 10 mg Un bridger 10 mg 6-25 by mouth. ity of tablet 00:00: [place] [facility] losartan 50 2020-0 Yes Univer s mg tablet 6-25 ity of 00:00: [address] metoprolol 2020-0 Yes Univers tartrate 50 6-25 ity of mg tablet 00:00: [address] pravastatin 2020-0 Yes 40mg Take 40 mg [facility] 40 mg 6-25 by mouth. ity of tablet 00:00: [address] clopidogreL 2020-0 Yes 75mg Take 75 mg [facility] 75 mg 6-25 by mouth. ity of tablet 00:00: [address] Branch glipiZIDE 2020-0 Yes 10mg Take 10 mg Un bridger 10 mg 6-25 by mouth. ity of tablet 00:00: [address] Branch losartan 50 2020-0 Yes Univer s mg tablet 6-25 ity of 00:00: [address] Branch metoprolol 2020-0 Yes Univers tartrate 50 6-25 ity of mg tablet 00:00: [address] pravastatin 2020-0 Yes 40mg Take 40 mg [facility] 40 mg 6-25 by mouth. ity of tablet 00:00: [address] Branch clopidogreL 2020-0 Yes 75mg Take 75 mg [facility] 75 mg 6-25 by mouth. ity of tablet 00:00: [place] [address] Medical Branch glipiZIDE 2020-0 Yes 10mg Take 10 mg Un bridger 10 mg 6-25 by mouth. ity of tablet 00:00: [address] Branch losartan 50 2020-0 Yes Univer s mg tablet 6-25 ity of 00:00: [place] [address] Medical Branch metoprolol 2020-0 Yes Univers tartrate 50 6-25 ity of mg tablet 00:00: [place] [facility] pravastatin 2020-0 Yes 40mg Take 40 mg [facility] 40 mg 6-25 by mouth. ity of tablet 00:00: [place] [facility] clopidogreL 2020-0 Yes 75mg Take 75 mg [facility] 75 mg 6-25 by mouth. ity of tablet 00:00: [place] [facility] glipiZIDE 2020-0 Yes 10mg Take 10 mg Un bridger 10 mg 6-25 by mouth. ity of tablet 00:00: [place] [facility] Branch losartan 50 2020-0 Yes Univer s mg tablet 6-25 ity of 00:00: [place] [facility] metoprolol 2020-0 Yes Univers tartrate 50 6-25 ity of mg tablet 00:00: [address] pravastatin 2020-0 Yes 40mg Take 40 mg [facility] 40 mg 6-25 by mouth. ity of tablet 00:00: [address] clopidogreL 2020-0 Yes 75mg Take 75 mg [facility] 75 mg 6-25 by mouth. ity of tablet 00:00: [place] [facility] Branch glipiZIDE 2020-0 Yes 10mg Take 10 mg Un bridger 10 mg 6-25 by mouth. ity of tablet 00:00: [place] [facility] Branch losartan 50 2020-0 Yes Univer s mg tablet 6-25 ity of 00:00: [place] [facility] metoprolol 2020-0 Yes Univers tartrate 50 6-25 ity of mg tablet 00:00: [address] pravastatin 2020-0 Yes 40mg Take 40 mg [facility] 40 mg 6-25 by mouth. ity of tablet 00:00: [place] [facility] Branch clopidogreL 2020-0 Yes 75mg Take 75 mg [facility] 75 mg 6-25 by mouth. ity of tablet 00:00: [address] Branch glipiZIDE 2020-0 Yes 10mg Take 10 mg Un bridger 10 mg 6-25 by mouth. ity of tablet 00:00: [address] Branch losartan 50 2020-0 Yes Univer s mg tablet 6-25 ity of 00:00: [place] [address] Medical Branch metoprolol 2020-0 Yes Univers tartrate 50 6-25 ity of mg tablet 00:00: [address] pravastatin 2020-0 Yes 40mg Take 40 mg [facility] 40 mg 6-25 by mouth. ity of tablet 00:00: [place] [facility] clopidogreL 2020-0 Yes 75mg Take 75 mg [facility] 75 mg 6-25 by mouth. ity of tablet 00:00: [place] [facility] glipiZIDE 2020-0 Yes 10mg Take 10 mg Un bridger 10 mg 6-25 by mouth. ity of tablet 00:00: [place] [facility] losartan 50 2020-0 Yes Univer s mg tablet 6-25 ity of 00:00: [place] [facility] metoprolol 2020-0 Yes Univers tartrate 50 6-25 ity of mg tablet 00:00: [address] Branch pravastatin 2020-0 Yes 40mg Take 40 mg [facility] 40 mg 6-25 by mouth. ity of tablet 00:00: [place] [address] Medical Branch clopidogreL 2020-0 Yes 75mg Take 75 mg [facility] 75 mg 6-25 by mouth. ity of tablet 00:00: [address] Branch glipiZIDE 2020-0 Yes 10mg Take 10 mg Un bridger 10 mg 6-25 by mouth. ity of tablet 00:00: [address] Branch losartan 50 2020-0 Yes Univer s mg tablet 6-25 ity of 00:00: [address] Branch metoprolol 2020-0 Yes Univers tartrate 50 6-25 ity of mg tablet 00:00: [address] pravastatin 2020-0 Yes 40mg Take 40 mg [facility] 40 mg 6-25 by mouth. ity of tablet 00:00: [address] Branch clopidogreL 2020-0 Yes 75mg Take 75 mg [facility] 75 mg 6-25 by mouth. ity of tablet 00:00: [place] [facility] glipiZIDE 2020-0 Yes 10mg Take 10 mg Un bridger 10 mg 6-25 by mouth. ity of tablet 00:00: [place] [address] Medical Branch losartan 50 2020-0 Yes Univer s mg tablet 6-25 ity of 00:00: [place] [address] Medical Branch metoprolol 2020-0 Yes Univers tartrate 50 6-25 ity of mg tablet 00:00: [address] Branch pravastatin 2020-0 Yes 40mg Take 40 mg [facility] 40 mg 6-25 by mouth. ity of tablet 00:00: [place] [address] Medical Branch clopidogreL 2020-0 Yes 75mg Take 75 mg [facility] 75 mg 6-25 by mouth. ity of tablet 00:00: [place] 00 Medical Branch glipiZIDE 2020-0 Yes 10mg Take 10 mg Un bridger 10 mg 6-25 by mouth. ity of tablet 00:00: [place] [facility] losartan 50 2020-0 Yes Univer s mg tablet 6-25 ity of 00:00: [place] [facility] metoprolol 2020-0 Yes Univers tartrate 50 6-25 ity of mg tablet 00:00: [place] [facility] pravastatin 2020-0 Yes 40mg Take 40 mg [facility] 40 mg 6-25 by mouth. ity of tablet 00:00: [place] [facility] clopidogreL 2020-0 Yes 75mg Take 75 mg [facility] 75 mg 6-25 by mouth. ity of tablet 00:00: [place] [facility] glipiZIDE 2020-0 Yes 10mg Take 10 mg Un bridger 10 mg 6-25 by mouth. ity of tablet 00:00: [place] [facility] losartan 50 2020-0 Yes Univer s mg tablet 6-25 ity of 00:00: [address] metoprolol 2020-0 Yes Univers tartrate 50 6-25 ity of mg tablet 00:00: [address] Branch pravastatin 2020-0 Yes 40mg Take 40 mg [facility] 40 mg 6-25 by mouth. ity of tablet 00:00: [address] Branch clopidogreL 2020-0 Yes 75mg Take 75 mg [facility] 75 mg 6-25 by mouth. ity of tablet 00:00: [address] Branch glipiZIDE 2020-0 Yes 10mg Take 10 mg Un bridger 10 mg 6-25 by mouth. ity of tablet 00:00: [place] [address] Medical Branch losartan 50 2020-0 Yes Univer s mg tablet 6-25 ity of 00:00: [place] [address] Medical Branch metoprolol 2020-0 Yes Univers tartrate 50 6-25 ity of mg tablet 00:00: [place] [address] Medical Branch pravastatin 2020-0 Yes 40mg Take 40 mg [facility] 40 mg 6-25 by mouth. ity of tablet 00:00: [place] [address] Medical Branch clopidogreL 2020-0 Yes 75mg Take 75 mg [facility] 75 mg 6-25 by mouth. ity of tablet 00:00: [address] Branch glipiZIDE 2020-0 Yes 10mg Take 10 mg Un bridger 10 mg 6-25 by mouth. ity of tablet 00:00: [place] [address] Medical Branch losartan 50 2020-0 Yes Univer s mg tablet 6-25 ity of 00:00: [place] [facility] metoprolol 2020-0 Yes Univers tartrate 50 6-25 ity of mg tablet 00:00: [place] [facility] pravastatin 2020-0 Yes 40mg Take 40 mg [facility] 40 mg 6-25 by mouth. ity of tablet 00:00: [place] [facility] clopidogreL 2020-0 Yes 75mg Take 75 mg [facility] 75 mg 6-25 by mouth. ity of tablet 00:00: [place] [facility] glipiZIDE 2020-0 Yes 10mg Take 10 mg Un bridger 10 mg 6-25 by mouth. ity of tablet 00:00: [place] [address] Medical Branch losartan 50 2020-0 Yes Univer s mg tablet 6-25 ity of 00:00: [place] [facility] metoprolol 2020-0 Yes Univers tartrate 50 6-25 ity of mg tablet 00:00: [address] pravastatin 2020-0 Yes 40mg Take 40 mg [facility] 40 mg 6-25 by mouth. ity of tablet 00:00: [address] Branch clopidogreL 2020-0 Yes 75mg Take 75 mg [facility] 75 mg 6-25 by mouth. ity of tablet 00:00: [address] Branch glipiZIDE 2020-0 Yes 10mg Take 10 mg Un bridger 10 mg 6-25 by mouth. ity of tablet 00:00: [place] [address] Medical Branch losartan 50 2020-0 Yes Univer s mg tablet 6-25 ity of 00:00: [place] [facility] metoprolol 2020-0 Yes Univers tartrate 50 6-25 ity of mg tablet 00:00: [address] pravastatin 2020-0 Yes 40mg Take 40 mg [facility] 40 mg 6-25 by mouth. ity of tablet 00:00: [place] [address] Medical Branch clopidogreL 2020-0 Yes 75mg Take 75 mg [facility] 75 mg 6-25 by mouth. ity of tablet 00:00: [address] Branch glipiZIDE 2020-0 Yes 10mg Take 10 mg Un bridger 10 mg 6-25 by mouth. ity of tablet 00:00: [place] [address] Medical Branch losartan 50 2020-0 Yes Univer s mg tablet 6-25 ity of 00:00: [place] [address] Medical Branch metoprolol 2020-0 Yes Univers tartrate 50 6-25 ity of mg tablet 00:00: [place] 00 Medical Branch pravastatin 2020-0 Yes 40mg Take 40 mg [facility] 40 mg 6-25 by mouth. ity of tablet 00:00: [place] [facility] clopidogreL 2020-0 Yes 75mg Take 75 mg [facility] 75 mg 6-25 by mouth. ity of tablet 00:00: [place] [facility] glipiZIDE 2020-0 Yes 10mg Take 10 mg Un bridger 10 mg 6-25 by mouth. ity of tablet 00:00: [place] [facility] losartan 50 2020-0 Yes Univer s mg tablet 6-25 ity of 00:00: [place] [facility] metoprolol 2020-0 Yes Univers tartrate 50 6-25 ity of mg tablet 00:00: [place] [facility] pravastatin 2020-0 Yes 40mg Take 40 mg [facility] 40 mg 6-25 by mouth. ity of tablet 00:00: [place] [facility] clopidogreL 2020-0 Yes 75mg Take 75 mg [facility] 75 mg 6-25 by mouth. ity of tablet 00:00: [place] [facility] glipiZIDE 2020-0 Yes 10mg Take 10 mg Un bridger 10 mg 6-25 by mouth. ity of tablet 00:00: [place] [facility] Branch losartan 50 2020-0 Yes Univer s mg tablet 6-25 ity of 00:00: [address] metoprolol 2020-0 Yes Univers tartrate 50 6-25 ity of mg tablet 00:00: [address] pravastatin 2020-0 Yes 40mg Take 40 mg [facility] 40 mg 6-25 by mouth. ity of tablet 00:00: [place] [facility] clopidogreL 2020-0 Yes 75mg Take 75 mg [facility] 75 mg 6-25 by mouth. ity of tablet 00:00: [address] Branch glipiZIDE 2020-0 Yes 10mg Take 10 mg Un bridger 10 mg 6-25 by mouth. ity of tablet 00:00: [place] [address] Medical Branch losartan 50 2020-0 Yes Univer s mg tablet 6-25 ity of 00:00: [place] [address] Medical Branch metoprolol 2020-0 Yes Univers tartrate 50 6-25 ity of mg tablet 00:00: [address] pravastatin 2020-0 Yes 40mg Take 40 mg [facility] 40 mg 6-25 by mouth. ity of tablet 00:00: [place] [address] Medical Branch clopidogreL 2020-0 Yes 75mg Take 75 mg [facility] 75 mg 6-25 by mouth. ity of tablet 00:00: [place] [facility] glipiZIDE 2020-0 Yes 10mg Take 10 mg Un bridger 10 mg 6-25 by mouth. ity of tablet 00:00: [place] [facility] losartan 50 2020-0 Yes Univer s mg tablet 6-25 ity of 00:00: [place] [facility] [facility] metoprolol 2020-0 Yes Univers tartrate 50 6-25 ity of mg tablet 00:00: [place] [facility] pravastatin 2020-0 Yes 40mg Take 40 mg Univers 40 mg 6-25 by mouth. ity of tablet 00:00: [place] [facility] clopidogreL 2020-0 Yes 75mg Take 75 mg Univers 75 mg 6-25 by mouth. ity of tablet 00:00: [place] [facility] glipiZIDE 2020-0 Yes 10mg Take 10 mg Un bridger 10 mg 6-25 by mouth. ity of tablet 00:00: [place] [facility] losartan 50 2020-0 Yes Univer s mg tablet 6-25 ity of 00:00: [place] [facility] metoprolol 2020-0 Yes Univers tartrate 50 6-25 ity of mg tablet 00:00: [address] pravastatin 2020-0 Yes 40mg Take 40 mg Univers 40 mg 6-25 by mouth. ity of tablet 00:00: [address] clopidogreL 2020-0 Yes 75mg Take 75 mg Univers 75 mg 6-25 by mouth. ity of tablet 00:00: [place] [facility] glipiZIDE 2020-0 Yes 10mg Take 10 mg Un bridger 10 mg 6-25 by mouth. ity of tablet 00:00: [place] [facility] losartan 50 2020-0 Yes Univer s mg tablet 6-25 ity of 00:00: [place] [facility] metoprolol 2020-0 Yes Univers tartrate 50 6-25 ity of mg tablet 00:00: [address] pravastatin 2020-0 Yes 40mg Take 40 mg [facility] 40 mg 6-25 by mouth. ity of tablet 00:00: [address] clopidogreL 2020-0 Yes 75mg Take 75 mg [facility] 75 mg 6-25 by mouth. ity of tablet 00:00: [address] glipiZIDE 2020-0 Yes 10mg Take 10 mg Un bridger 10 mg 6-25 by mouth. ity of tablet 00:00: [place] [facility] losartan 50 2020-0 Yes Univer s mg tablet 6-25 ity of 00:00: [place] [facility] metoprolol 2020-0 Yes Univers tartrate 50 6-25 ity of mg tablet 00:00: [place] [facility] pravastatin 2020-0 Yes 40mg Take 40 mg [facility] 40 mg 6-25 by mouth. ity of tablet 00:00: [place] [facility] clopidogreL 2020-0 Yes 75mg Take 75 mg Univers 75 mg 6-25 by mouth. ity of tablet 00:00: [place] [facility] glipiZIDE 2020-0 Yes 10mg Take 10 mg Un bridger 10 mg 6-25 by mouth. ity of tablet 00:00: [place] [facility] losartan 50 2020-0 Yes Univer s mg tablet 6-25 ity of 00:00: [place] [facility] metoprolol 2020-0 Yes Univers tartrate 50 6-25 ity of mg tablet 00:00: [place] [address] [facility] pravastatin 2020-0 Yes 40mg Take 40 mg Univers 40 mg 6-25 by mouth. ity of tablet 00:00: [place] [address] [facility] clopidogreL 2020-0 Yes 75mg Take 75 mg [facility] 75 mg 6-25 by mouth. ity of tablet 00:00: [place] [facility] glipiZIDE 2020-0 Yes 10mg Take 10 mg Un bridger 10 mg 6-25 by mouth. ity of tablet 00:00: [place] [facility] losartan 50 2020-0 Yes Univer s mg tablet 6-25 ity of 00:00: [place] [facility] metoprolol 2020-0 Yes Univers tartrate 50 6-25 ity of mg tablet 00:00: [place] [address] [facility] pravastatin 2020-0 Yes 40mg Take 40 mg [facility] 40 mg 6-25 by mouth. ity of tablet 00:00: [place] [address] [facility] clopidogreL 2020-0 Yes 75mg Take 75 mg [facility] 75 mg 6-25 by mouth. ity of tablet 00:00: [place] [address] [facility] glipiZIDE 2020-0 Yes 10mg Take 10 mg Un bridger 10 mg 6-25 by mouth. ity of tablet 00:00: [place] [address] [facility] losartan 50 2020-0 Yes Univer s mg tablet 6-25 ity of 00:00: [place] [address] [facility] metoprolol 2020-0 Yes Univers tartrate 50 6-25 ity of mg tablet 00:00: [place] [address] [facility] pravastatin 2020-0 Yes 40mg Take 40 mg Univers 40 mg 6-25 by mouth. ity of tablet 00:00: [place] [facility] clopidogreL 2020-0 Yes 75mg Take 75 mg Univers 75 mg 6-25 by mouth. ity of tablet 00:00: [place] [facility] glipiZIDE 2020-0 Yes 10mg Take 10 mg Un bridger 10 mg 6-25 by mouth. ity of tablet 00:00: [address] Branch losartan 50 2020-0 Yes Univer s mg tablet 6-25 ity of 00:00: [place] [facility] metoprolol 2020-0 Yes Univers tartrate 50 6-25 ity of mg tablet 00:00: [address] pravastatin 2020-0 Yes 40mg Take 40 mg [facility] 40 mg 6-25 by mouth. ity of tablet 00:00: [address] clopidogreL 2020-0 Yes 75mg Take 75 mg Univers 75 mg 6-25 by mouth. ity of tablet 00:00: [address] glipiZIDE 2020-0 Yes 10mg Take 10 mg Un bridger 10 mg 6-25 by mouth. ity of tablet 00:00: [address] losartan 50 2020-0 Yes Univer s mg tablet 6-25 ity of 00:00: [address] metoprolol 2020-0 Yes Univers tartrate 50 6-25 ity of mg tablet 00:00: [address] pravastatin 2020-0 Yes 40mg Take 40 mg [facility] 40 mg 6-25 by mouth. ity of tablet 00:00: [address] clopidogreL 2020-0 Yes 75mg Take 75 mg Univers 75 mg 6-25 by mouth. ity of tablet 00:00: [address] glipiZIDE 2020-0 Yes 10mg Take 10 mg Un bridger 10 mg 6-25 by mouth. ity of tablet 00:00: [address] losartan 50 2020-0 Yes Univer s mg tablet 6-25 ity of 00:00: [address] metoprolol 2020-0 Yes Univers tartrate 50 6-25 ity of mg tablet 00:00: [address] pravastatin 2020-0 Yes 40mg Take 40 mg Univers 40 mg 6-25 by mouth. ity of tablet 00:00: [address] clopidogreL 2020-0 Yes 75mg Take 75 mg Univers 75 mg 6-25 by mouth. ity of tablet 00:00: [place] [facility] glipiZIDE 2020-0 Yes 10mg Take 10 mg Un bridger 10 mg 6-25 by mouth. ity of tablet 00:00: [place] [facility] losartan 50 2020-0 Yes Univer s mg tablet 6-25 ity of 00:00: [place] [facility] metoprolol 2020-0 Yes Univers tartrate 50 6-25 ity of mg tablet 00:00: [place] [facility] pravastatin 2020-0 Yes 40mg Take 40 mg Univers 40 mg 6-25 by mouth. ity of tablet 00:00: [place] [address] [facility] clopidogreL 2020-0 Yes 75mg Take 75 mg Univers 75 mg 6-25 by mouth. ity of tablet 00:00: [place] [facility] glipiZIDE 2020-0 Yes 10mg Take 10 mg Un bridger 10 mg 6-25 by mouth. ity of tablet 00:00: [place] [facility] losartan 50 2020-0 Yes Univer s mg tablet 6-25 ity of 00:00: [place] [address] [facility] metoprolol 2020-0 Yes Univers tartrate 50 6-25 ity of mg tablet 00:00: [address] pravastatin 2020-0 Yes 40mg Take 40 mg Univers 40 mg 6-25 by mouth. ity of tablet 00:00: [address] Branch clopidogreL 2020-0 Yes 75mg Take 75 mg Univers 75 mg 6-25 by mouth. ity of tablet 00:00: [place] [address] [facility] glipiZIDE 2020-0 Yes 10mg Take 10 mg Un bridger 10 mg 6-25 by mouth. ity of tablet 00:00: [place] [address] [facility] losartan 50 2020-0 Yes Univer s mg tablet 6-25 ity of 00:00: [place] [address] [facility] metoprolol 2020-0 Yes Univers tartrate 50 6-25 ity of mg tablet 00:00: [place] [address] [facility] pravastatin 2020-0 Yes 40mg Take 40 mg [facility] 40 mg 6-25 by mouth. ity of tablet 00:00: [place] [address] [facility] clopidogreL 2020-0 Yes 75mg Take 75 mg Univers 75 mg 6-25 by mouth. ity of tablet 00:00: [place] [address] [facility] glipiZIDE 2020-0 Yes 10mg Take 10 mg Un bridger 10 mg 6-25 by mouth. ity of tablet 00:00: [place] [facility] losartan 50 2020-0 Yes Univer s mg tablet 6-25 ity of 00:00: [place] [facility] metoprolol 2020-0 Yes Univers tartrate 50 6-25 ity of mg tablet 00:00: [place] [facility] pravastatin 2020-0 Yes 40mg Take 40 mg Univers 40 mg 6-25 by mouth. ity of tablet 00:00: [place] [facility] clopidogreL 2020-0 Yes 75mg Take 75 mg Univers 75 mg 6-25 by mouth. ity of tablet 00:00: [place] [facility] glipiZIDE 2020-0 Yes 10mg Take 10 mg Un bridger 10 mg 6-25 by mouth. ity of tablet 00:00: [place] [facility] losartan 50 2020-0 Yes Univer s mg tablet 6-25 ity of 00:00: [place] [facility] metoprolol 2020-0 Yes Univers tartrate 50 6-25 ity of mg tablet 00:00: [address] pravastatin 2020-0 Yes 40mg Take 40 mg Univers 40 mg 6-25 by mouth. ity of tablet 00:00: [address] Branch clopidogreL 2020-0 Yes 75mg Take 75 mg Univers 75 mg 6-25 by mouth. ity of tablet 00:00: [address] glipiZIDE 2020-0 Yes 10mg Take 10 mg Un bridger 10 mg 6-25 by mouth. ity of tablet 00:00: [address] Branch losartan 50 2020-0 Yes Univer s mg tablet 6-25 ity of 00:00: [address] metoprolol 2020-0 Yes Univers tartrate 50 6-25 ity of mg tablet 00:00: [address] pravastatin 2020-0 Yes 40mg Take 40 mg Univers 40 mg 6-25 by mouth. ity of tablet 00:00: [place] [address] [facility] clopidogreL 2020-0 Yes 75mg Take 75 mg Univers 75 mg 6-25 by mouth. ity of tablet 00:00: [address] Branch glipiZIDE 2020-0 Yes 10mg Take 10 mg Un bridger 10 mg 6-25 by mouth. ity of tablet 00:00: [address] Branch losartan 50 2020-0 Yes Univer s mg tablet 6-25 ity of 00:00: [address] Branch metoprolol 2020-0 Yes Univers tartrate 50 6-25 ity of mg tablet 00:00: [place] [facility] pravastatin 2020-0 Yes 40mg Take 40 mg Univers 40 mg 6-25 by mouth. ity of tablet 00:00: [place] [facility] clopidogreL 2020-0 Yes 75mg Take 75 mg Univers 75 mg 6-25 by mouth. ity of tablet 00:00: [place] [facility] glipiZIDE 2020-0 Yes 10mg Take 10 mg Un bridger 10 mg 6-25 by mouth. ity of tablet 00:00: [place] [facility] losartan 50 2020-0 Yes Univer s mg tablet 6-25 ity of 00:00: [place] [facility] metoprolol 2020-0 Yes Univers tartrate 50 6-25 ity of mg tablet 00:00: [address] pravastatin 2020-0 Yes 40mg Take 40 mg [facility] 40 mg 6-25 by mouth. ity of tablet 00:00: [address] clopidogreL 2020-0 Yes 75mg Take 75 mg Univers 75 mg 6-25 by mouth. ity of tablet 00:00: [place] [facility] glipiZIDE 2020-0 Yes 10mg Take 10 mg Un bridger 10 mg 6-25 by mouth. ity of tablet 00:00: [place] [facility] losartan 50 2020-0 Yes Univer s mg tablet 6-25 ity of 00:00: [address] metoprolol 2020-0 Yes Univers tartrate 50 6-25 ity of mg tablet 00:00: [address] pravastatin 2020-0 Yes 40mg Take 40 mg Univers 40 mg 6-25 by mouth. ity of tablet 00:00: [place] [facility] clopidogreL 2020-0 Yes 75mg Take 75 mg Univers 75 mg 6-25 by mouth. ity of tablet 00:00: [address] glipiZIDE 2020-0 Yes 10mg Take 10 mg Un bridger 10 mg 6-25 by mouth. ity of tablet 00:00: [address] losartan 50 2020-0 Yes Univer s mg tablet 6-25 ity of 00:00: [address] metoprolol 2020-0 Yes Univers tartrate 50 6-25 ity of mg tablet 00:00: [address] pravastatin 2020-0 Yes 40mg Take 40 mg Univers 40 mg 6-25 by mouth. ity of tablet 00:00: [place] [facility] clopidogreL 2020-0 Yes 75mg Take 75 mg Univers 75 mg 6-25 by mouth. ity of tablet 00:00: [place] [facility] glipiZIDE 2020-0 Yes 10mg Take 10 mg Un bridger 10 mg 6-25 by mouth. ity of tablet 00:00: [place] [facility] losartan 50 2020-0 Yes Univer s mg tablet 6-25 ity of 00:00: [place] [facility] metoprolol 2020-0 Yes Univers tartrate 50 6-25 ity of mg tablet 00:00: [address] [facility] pravastatin 2020-0 Yes 40mg Take 40 mg Univers 40 mg 6-25 by mouth. ity of tablet 00:00: [address] [facility] clopidogreL 2020-0 Yes 75mg Take 75 mg Univers 75 mg 6-25 by mouth. ity of tablet 00:00: [place] [facility] glipiZIDE 2020-0 Yes 10mg Take 10 mg Un bridger 10 mg 6-25 by mouth. ity of tablet 00:00: [address] Branch losartan 50 2020-0 Yes Univer s mg tablet 6-25 ity of 00:00: [address] metoprolol 2020-0 Yes Univers tartrate 50 6-25 ity of mg tablet 00:00: [address] pravastatin 2020-0 Yes 40mg Take 40 mg Univers 40 mg 6-25 by mouth. ity of tablet 00:00: [address] clopidogreL 2020-0 Yes 75mg Take 75 mg Univers 75 mg 6-25 by mouth. ity of tablet 00:00: [address] glipiZIDE 2020-0 Yes 10mg Take 10 mg Un bridger 10 mg 6-25 by mouth. ity of tablet 00:00: [address] Branch losartan 50 2020-0 Yes Univer s mg tablet 6-25 ity of 00:00: [address] metoprolol 2020-0 Yes Univers tartrate 50 6-25 ity of mg tablet 00:00: [address] pravastatin 2020-0 Yes 40mg Take 40 mg Univers 40 mg 6-25 by mouth. ity of tablet 00:00: [address] clopidogreL 2020-0 Yes 75mg Take 75 mg Univers 75 mg 6-25 by mouth. ity of tablet 00:00: [address] Branch glipiZIDE 2020-0 Yes 10mg Take 10 mg Un bridger 10 mg 6-25 by mouth. ity of tablet 00:00: [place] 00 [facility] losartan 50 2019-0 Yes Univer s mg tablet 6-25 ity of 00:00: [place] [facility] metoprolol 2020-0 Yes Univers tartrate 50 6-25 ity of mg tablet 00:00: [address] pravastatin 2019-0 Yes 40mg Take 40 mg Univers 40 mg 6-25 by mouth. ity of tablet 00:00: [place] 00 [facility] SITagliptin 2020-0 2021- No 25mg Take 25 mg Univers 25 mg 03-13 by mouth. ity of tablet 00:00: 04:59 [place] 00 :00 [facility] SITagliptin 2020-0 2021- No 25mg Take 25 mg Univers 25 mg 03-13 by mouth. ity of tablet 00:00: 04:59 [place] 00 :00 [facility] SITagliptin 2020-0 1- No 25mg Take 25 mg Univers 25 mg 03-13 by mouth. ity of tablet 00:00: 04:59 [place] 00 :00 [facility] SITagliptin 2020-0 2021- No 25mg Take 25 mg Univers 25 mg 03-13 by mouth. ity of tablet 00:00: 04:59 [place] 00 :00 [facility] SITagliptin 2020-0 2021- No 25mg Take 25 mg Univers 25 mg 03-13 by mouth. ity of tablet 00:00: 04:59 [place] 00 :00 [facility] SITagliptin 2020-0 2021- No 25mg Take 25 mg Univers 25 mg 03-13 by mouth. ity of tablet 00:00: 04:59 [place] 00 :00 [facility] SITagliptin 2020-0 2021- No 25mg Take 25 mg Univers 25 mg 03-13 by mouth. ity of tablet 00:00: 04:59 [place] 00 :00 [facility] SITagliptin 2020-0 2021- No 25mg Take 25 mg Univers 25 mg 03-13 by mouth. ity of tablet 00:00: 04:59 [place] 00 :00 [facility] SITagliptin 2020-0 2021- No 25mg Take 25 mg Univers 25 mg 03-13 by mouth. ity of tablet 00:00: 04:59 [place] 00 :00 [facility] SITagliptin 2020-0 2021- No 25mg Take 25 mg Univers 25 mg 03-13 by mouth. ity of tablet 00:00: 04:59 [place] 00 :00 [facility] SITagliptin 2020-0 2021- No 25mg Take 25 mg Univers 25 mg 03-13 by mouth. ity of tablet 00:00: 04:59 [place] 00 :00 [facility] SITagliptin 2020-0 2021- No 25mg Take 25 mg Univers 25 mg 03-13 by mouth. ity of tablet 00:00: 04:59 [place] 00 :00 [facility] SITagliptin 2020-0 2021- No 25mg Take 25 mg Univers 25 mg 03-13 by mouth. ity of tablet 00:00: 04:59 [place] 00 :00 [facility] SITagliptin 2020-0 2021- No 25mg Take 25 mg Univers 25 mg 03-13 by mouth. ity of tablet 00:00: 04:59 [place] 00 :00 [facility] SITagliptin 2020-0 2021- No 25mg Take 25 mg Univers 25 mg 03-13 by mouth. ity of tablet 00:00: 04:59 [place] 00 :00 [facility] SITagliptin 2020-0 2021- No 25mg Take 25 mg Univers 25 mg 03-13 by mouth. ity of tablet 00:00: 04:59 [place] 00 :00 [facility] SITagliptin 2020-0 2021- No 25mg Take 25 mg Univers 25 mg 03-13 by mouth. ity of tablet 00:00: 04:59 [place] 00 :00 [facility] SITagliptin 2020-0 2021- No 25mg Take 25 mg Univers 25 mg 03-13 by mouth. ity of tablet 00:00: 04:59 [place] 00 :00 [facility] SITagliptin 2020-0 2021- No 25mg Take 25 mg Univers 25 mg 03-13 by mouth. ity of tablet 00:00: 04:59 [place] 00 :00 [facility] SITagliptin 2020-0 2021- No 25mg Take 25 mg Univers 25 mg 03-13 by mouth. ity of tablet 00:00: 04:59 [place] 00 :00 [facility] SITagliptin 2020-0 2021- No 25mg Take 25 mg Univers 25 mg 03-13 by mouth. ity of tablet 00:00: 04:59 [place] 00 :00 [facility] SITagliptin 2020-0 2021- No 25mg Take 25 mg Univers 25 mg 03-13 by mouth. ity of tablet 00:00: 04:59 [place] 00 :00 [facility] SITagliptin 2020-0 2021- No 25mg Take 25 mg Univers 25 mg 03-13 by mouth. ity of tablet 00:00: 04:59 [place] 00 :00 [facility] SITagliptin 2020-0 2021- No 25mg Take 25 mg Univers 25 mg 03-13 by mouth. ity of tablet 00:00: 04:59 [place] 00 :00 [facility] SITagliptin 2020-0 2021- No 25mg Take 25 mg Univers 25 mg 03-13 by mouth. ity of tablet 00:00: 04:59 [place] 00 :00 [facility] SITagliptin 2020-0 2021- No 25mg Take 25 mg Univers 25 mg 03-13 by mouth. ity of tablet 00:00: 04:59 [place] 00 :00 [facility] SITagliptin 2020-0 2021- No 25mg Take 25 mg Univers 25 mg 03-13 by mouth. ity of tablet 00:00: 04:59 [place] 00 :00 [facility] SITagliptin 2020-0 2021- No 25mg Take 25 mg Univers 25 mg 03-13 by mouth. ity of tablet 00:00: 04:59 [place] 00 :00 [facility] SITagliptin 2020-0 2021- No 25mg Take 25 mg Univers 25 mg 03-13 by mouth. ity of tablet 00:00: 04:59 [place] 00 :00 [facility] SITagliptin 2020-0 2021- No 25mg Take 25 mg Univers 25 mg 03-13 by mouth. ity of tablet 00:00: 04:59 [place] 00 :00 [facility] SITagliptin 2020-0 2021- No 25mg Take 25 mg Univers 25 mg 03-13 by mouth. ity of tablet 00:00: 04:59 [place] 00 :00 [facility] Vital Signs Vital Name Observation Time Observation Value Comments Source Systolic blood 2021-06-08 19:46:00 140 mm[Hg] Univer sity of pressure [facility] Diastolic blood 2021-06-08 19:46:00 84 mm[Hg] Unive rsity of pressure [place] [facility] Heart rate 2021-06-08 19:46:00 80 /min [facility] [place] [facility] Body temperature 2021-06-08 19:38:00 36.83 [place] [facility] [place] [facility] Respiratory rate 2021-06-08 19:38:00 20 /min [facility] [place] [facility] Body height 2021-06-08 19:38:00 162.6 cm [facility] [place] [facility] Body weight 2021-06-08 19:38:00 78.926 kg [facility] [place] [facility] BMI 2021-06-08 19:38:00 29.87 kg/m2 [facility] [place] [facility] Oxygen saturation in 2021-06-08 19:38:00 98 /min University of Arterial blood by [facility] Pulse oximetry Branch Systolic blood 2021-05-29 16:03:00 127 mm[Hg] Univer sity of pressure [place] [facility] Diastolic blood 2021-05-29 16:03:00 76 mm[Hg] Unive rsity of pressure [place] [facility] Heart rate 2021-05-29 16:03:00 90 /min [facility] [place] [facility] Body temperature 2021-05-29 16:03:00 36.39 [place] [facility] [place] [facility] Respiratory rate 2021-05-29 16:03:00 14 /min Univ [facility] [place] [facility] Body height 2021-05-29 16:03:00 165.1 cm [facility] [place] [facility] Body weight 2021-05-29 16:03:00 80.468 kg [facility] [place] [facility] BMI 2021-05-29 16:03:00 29.52 kg/m2 [facility] [place] [facility] Oxygen saturation in 2021-05-29 16:03:00 96 /min [facility] of Arterial blood by [facility] Pulse oximetry Branch Systolic blood 2021-04-27 14:36:00 115 mm[Hg] Univer sity of pressure [place] [facility] Diastolic blood 2021-04-27 14:36:00 70 mm[Hg] Unive rsity of pressure [place] [facility] Heart rate 2021-04-27 14:36:00 94 /min [facility] [place] [facility] Body temperature 2021-04-27 14:36:00 36.22 [place] [facility] [place] [facility] Respiratory rate 2021-04-27 14:36:00 16 /min [facility] [place] [facility] Body weight 2021-04-27 14:36:00 80.287 kg [facility] [place] [facility] BMI 2021-04-27 14:36:00 26.91 kg/m2 [facility] [place] [facility] Oxygen saturation in 2021-04-27 14:36:00 96 /min [facility] of Arterial blood by [facility] Pulse oximetry Branch Systolic blood 2021-04-20 13:29:00 138 mm[Hg] Univer sity of pressure [place] [facility] Diastolic blood 2021-04-20 13:29:00 80 mm[Hg] Unive rsity of pressure [place] [facility] Heart rate 2021-04-20 13:29:00 80 /min [facility] [place] [facility] Body temperature 2021-04-20 13:29:00 36.83 [place] [facility] [place] [facility] Respiratory rate 2021-04-20 13:29:00 20 /min [facility] [place] [facility] Body height 2021-04-20 13:29:00 172.7 cm [facility] [place] [facility] Body weight 2021-04-20 13:29:00 81.194 kg [facility] [place] [facility] BMI 2021-04-20 13:29:00 27.22 kg/m2 [facility] [place] [facility] Oxygen saturation in 2021-04-20 13:29:00 98 /min [facility] of Arterial blood by [facility] Pulse oximetry Branch Systolic blood 2021-03-16 21:15:00 142 mm[Hg] Univer sity of pressure [place] [facility] Diastolic blood 2021-03-16 21:15:00 83 mm[Hg] Unive rsity of pressure [place] [facility] Heart rate 2021-03-16 21:15:00 75 /min [facility] [place] [facility] Body temperature 2021-03-16 21:15:00 36.17 [place] [facility] [place] [facility] Respiratory rate 2021-03-16 21:15:00 18 /min [facility] [place] [facility] Body height 2021-03-16 21:15:00 162.6 cm [facility] [place] [facility] Body weight 2021-03-16 21:15:00 82.192 kg [facility] [place] [facility] BMI 2021-03-16 21:15:00 31.10 kg/m2 [facility] [place] [facility] Oxygen saturation in 2021-03-16 21:15:00 98 /min [facility] Arterial blood by [facility] Pulse oximetry Branch Systolic blood 2020-08-29 16:38:00 121 mm[Hg] Univer sity of pressure [place] [facility] Diastolic blood 2020-08-29 16:38:00 77 mm[Hg] Unive rsity of pressure [place] [facility] Heart rate 2020-08-29 16:38:00 74 /min [facility] [place] [facility] Body height 2020-08-29 16:38:00 165.1 cm [facility] [place] [facility] Body weight 2020-08-29 16:38:00 82.101 kg [facility] [place] [facility] BMI 2020-08-29 16:38:00 30.12 kg/m2 [facility] [place] [facility] Systolic blood 2020-07-28 21:40:00 116 mm[Hg] Univer sity of pressure [place] [facility] Diastolic blood 2020-07-28 21:40:00 85 mm[Hg] Unive rsity of pressure [place] [facility] Heart rate 2020-07-28 21:40:00 101 /min [facility] [place] [facility] Body weight 2020-07-28 21:40:00 80.287 kg [facility] [place] [facility] BMI 2020-07-28 21:40:00 29.45 kg/m2 [facility] Oxygen saturation in 2020-07-28 21:40:00 95 /min [facility] Arterial blood by [facility] Pulse oximetry Branch Systolic blood 2020-06-02 18:21:00 131 mm[Hg] Univer sity of pressure [place] [facility] Diastolic blood 2020-06-02 18:21:00 89 mm[Hg] Unive rsity of pressure [place] [facility] Heart rate 2020-06-02 18:21:00 91 /min [facility] [place] [facility] Body temperature 2020-06-02 18:21:00 36.72 [place] [facility] [place] [facility] Body height 2020-06-02 18:21:00 165.1 cm [facility] [place] [facility] Body weight 2020-06-02 18:21:00 80.559 kg [facility] [place] [facility] BMI 2020-06-02 18:21:00 29.55 kg/m2 [facility] [place] [facility] Oxygen saturation in 2020-06-02 18:21:00 97 /min [facility] Arterial blood by [facility] Pulse oximetry Branch Systolic blood 2020-06-02 18:21:00 131 mm[Hg] Univer sity of pressure [place] [facility] Diastolic blood 2020-06-02 18:21:00 89 mm[Hg] Unive rsity of pressure [place] [facility] Heart rate 2020-06-02 18:21:00 91 /min [facility] [place] [facility] Body temperature 2020-06-02 18:21:00 36.72 [place] [facility] [place] [facility] Body height 2020-06-02 18:21:00 165.1 cm [facility] [place] [facility] Body weight 2020-06-02 18:21:00 80.559 kg [facility] [place] [facility] BMI 2020-06-02 18:21:00 29.55 kg/m2 [facility] [place] [facility] Oxygen saturation in 2020-06-02 18:21:00 97 /min [facility] Arterial blood by [facility] Pulse oximetry Branch Systolic blood 2020-07-04 20:26:00 121 mm[Hg] Univer sity of pressure [place] [facility] Diastolic blood 2020-07-04 20:26:00 74 mm[Hg] Unive rsity of pressure [place] [facility] Heart rate 2020-07-04 20:26:00 97 /min [facility] [place] [facility] Body height 2020-07-04 20:26:00 165.1 cm [facility] Body weight 2020-07-04 20:26:00 80.287 kg [facility] BMI 2020-07-04 20:26:00 29.45 kg/m2 [facility] Oxygen saturation in 2020-07-04 20:26:00 97 /min [facility] Arterial blood by [facility] Pulse oximetry Branch Procedures Procedure Date / Time Performing Clinician Source Performed POCT URINALYSIS AUTO 2021-06-08 19:43:00 Tatiana Rodriguez [facility] EXTERNAL PROVIDER RECORDS 2021-06-04 05:01:00 Doctor Unassigned, [facility] POCT URINALYSIS AUTO 2021-04-27 14:40:00 Felix Mao [facility] US ABDOMEN LIMITED 2021-04-24 18:03:28 Tatiana Rodriguez [facility] CT ABDOMEN PELVIS W WO 2021-04-10 16:55:51 [facility] ASSIGNMENT OF BENEFITS 2021-04-10 16:02:00 [facility] [place] [facility] URINE CULTURE 2021-03-24 16:55:00 Tatiana Rodriguez Leon o [facility] PROSTATIC SPECIFIC 2021-03-24 16:52:00 Daylin [facility] ANTIGEN [facility] Branch COMP. METABOLIC PANEL 2021-03-24 16:52:00 Felix Mao [facility] ([id number]) [facility] POCT URINALYSIS AUTO 2021-03-16 21:32:00 Felix Mao [facility] REFERRAL- 2021-03-12 05:01:00 Doctor Nida, [facility] REQUEST/RESPONSE [facility] EXTERNAL PROVIDER RECORDS 2020-07-16 05:01:00 Doctor Nida, [facility] MR BRAIN WO CONTRAST WITH 2020-06-18 14:17:19 Alex Hall [facility] NEUROQUANT [facility] MEDICATION CORRESPONDENCE 2020-06-11 05:01:00 Doctor Nida, [facility] [place] [facility] COGNITIVE ASSESSMENT 2020-06-02 05:01:00 Doctor Unamarina, [facility] Name Medical Drift Encounters Start End Encounter Admission Attending Care Care Encounter Source Date/Time Date/Time Type Type Clinicians Facility Department ID 2021-11-27 2021-11-27 Outpatient RAJINDER [facility] [id number] Univers 11:00:00 11:00:00 TRACY [id number] [facility] 2021-11-16 2021-11-16 Outpatient R GUILLE [facility] [id number] -[id number] Univers 15:30:00 15:30:00 TATIANA [id number] [facility] 2021-10-12 2021-10-12 Telephone Isabel NYARIES 1.2.840.114 [id number] Univers 00:00:00 00:00:00 Alex PORTILLO [id number] [place] [phone] In dicnm NAL 092 [facility] 2021-06-08 2021-06-08 [facility] 1.2.840.114 [id number] Univers 14:14:58 14:46:00 Visit Tatiana Caruso [place] 350.1.13.10 [place] [phone] [facility] nal 204 [facility] 2021-06-08 2021-06-08 Outpatient R GUILLE [facility] [id number] Univers 14:30:00 14:30:[id number] ity [facility] 2021-06-08 2021-06-08 [facility] [id number] Univers 14:30[facility]00 [facility]30[facility] 2021-06-04 2021-06-04 Orders Doctor TRACY 1.2.840.114 [id number] Univers 00:00:00 00:00:00 Only Unassigned, DA 350.1.13.10 ity of [place] [facility] 4.2.7.2.686 Darren as [phone] [address] 2021-06-02 2021-06-02 Telephone Rajinder [facility] 1.2.101.857 [id number] Univers 00:00:00 00:00:00 Tracy Portillo 350.1.13.10 i [id number] [phone] In dical nal 188 [facility] 2021-05-29 2021-05-29 Office Rajinder [facility] 1.2.840.114 [id number] Univers 10:49:22 11:08:59 Visit Tracy Portillo 350.1.13.10 i [place] [phone] In dical nal 188 [facility] 2021-05-29 2021-05-29 Outpatient R RAJINDER [facility] [id number] Univers 10:45:00 10:45:00 [facility] [id number] [facility] 2021-05-29 2021-05-29 Outpatient Tyson CALVILLO [facility] [id number] Univers 10:45:00 10:45:00 TRACY [facility] 2021-05-20 2021-05-20 Telephone [facility] 1.2.840.114 [id number] Univers 00:00:00 00:00:00 Alex Portillo [id number] [id number] [phone] In dical counts include 234 beds at the [facility] 092 [facility] 2021-05-01 2021-05-01 Outpatient Tyson CALVILLO [facility] [id number] Univers 09:00:00 09:00:00 TRACY [id number] [facility] 2021-05-01 2021-05-01 Outpatient Tyson CALVILLO [facility] [id number] Univers 09:00:00 09:00:00 [facility] 2021-04-27 2021-04-27 Office Daylin [facility] 1.2.840.114 [id number] Univers 09:21:02 10:51:30 Visit Rm, Adc Surg Spec Procedure Deneen 3 50.1.13.10 it[place] [phone] In dical nal 204 [facility] 2021-04-27 2021-04-27 Outpatient R DAYLIN [facility] [id number] Univers 09:45:00 09:45:00 [facility] [id number] [facility] 2021-04-27 2021-04-27 Outpatient R DAYLIN [facility] [id number] Univers 09:45:00 09:45:00 [facility] 2021-04-24 2021-04-24 [facility] 1.2.840.114 [id number] Univers 12:05:42 23:59:00 Encounter Tatiana Portillo 350.1.13.10 [id number] [phone] [facility] [address] 2021-04-24 2021-04-24 Outpatient R GUILLE, [facility] [id number] -[id number] Univers 13:00:00 13:00:[id number] [facility] 2021-04-24 2021-04-24 [facility] [id number] Univers 00:00:00 00:00:[address] [facility] 2021-04-20 2021-04-20 Nurse Nurse, Adc Surgery [facility] 1.2. 840.114 [id number] Univers 08:06:57 08:25:21 Visit Tatiana Rodriguez 350.1.13.10 ity of [place] 4.2.7.2.686 [place]renisael [place] Professio [phone] In dic[address] 2021-04-20 2021-04-20 Outpatient R [facility] [id number] Univers 08:00:00 08:00:[id number] [facility] 2021-04-20 2021-04-20 Outpatient R [facility] [id number] Univers 08:00:00 08:00:[address] [facility] 2021-04-17 2021-04-17 Case [facility] 1.2.840.114 [id number] Univers 00:00:00 00:00:00 Management Tatiana Portillo 350.1.13.10 ity of [place] [id number] Darrena s Professio [phone] In dic[address] 2021-04-16 2021-04-16 Case [facility] 1.2.235.140 [id number] Univers 00:00:00 00:00:00 Management Maude N [facility] 350.1.13.10 ity of [place] 4.2.7.2.686 [facility] [phone] [facility] [address] 2021-04-10 2021-04-10 [facility] 1.2.871.352 [id number] Univers 11:00:00 23:59:00 Encounter Felix Portillo 350.1.13.10 [id number] [phone] [facility] [address] 2021-04-10 2021-04-10 [facility] [id number] Univers 11:00:00 11:00:[id number]y [facility] 2021-04-10 2021-04-10 Outpatient R [facility] [id number] Univers 00:00:00 00:00:[address] [facility] 2021-04-10 2021-04-10 Orders Doctor TRACY 1.2.840.114 [id number] Univers 00:00:00 00:00:00 Only Unassigned, DA 350.1.13.10 ity of [facility] 4.2.7.2.686 Darren as [phone] [facility] [address] 2021-03-27 2021-03-27 Telephone [facility] 1.2.840.114 [id number] Univers 00:00:00 00:00:00 [facility] Deneen 350.1.13.10 i [place] [phone] In dical nal 204 [facility] 2021-03-24 2021-03-24 Apprentice/Lineman Gertrude Thompson [facility] Main [facility] 1.2.8 40.114 [id number] Univers 11:38:10 11:53:10 Visit Daylin Felix Portillo 350.1.13.10 it[place] of [place] [phone] In dical nal 353 [facility] 2021-03-24 2021-03-24 Outpatient R [facility] [id number] Univers 11:45:00 11:45:[id number] [facility] 2021-03-24 2021-03-24 Outpatient [facility] [id number] Univers 11:45:00 11:45:00 [facility] 2021-03-19 2021-03-19 Telephone [facility] 1.2.989.133 [id number] Univers 00:00:00 00:00:00 Tatiana Portillo 350.1.13.10 [place] [phone] In dical nal 204 [facility] 2021-03-16 2021-03-16 Office [facility] 1.2.840.114 [id number] Univers 14:53:26 16:44:15 Visit [facility] 350.1.13.10 i [place] [phone] In dic[address] 2021-03-16 2021-03-16 Outpatient R DAYLIN [facility] [id number] Univers 15:15:00 15:15:[id number] ity [facility] 2021-03-16 2021-03-16 Outpatient R [facility] [id number] Univers 15:15:00 15:15:[address] [facility] 2021-03-12 2021-03-12 Orders Doctor TRACY 1.2.840.114 [id number] Univers 00:00:00 00:00:00 Only Unassigned, DA 350.1.13.10 ity of [place] [facility] 4.2.7.2.686 Darren as [phone] [facility] [address] 2021-01-01 2021-01-01 Office NEETA Keller 1.2.283.766 [id number] Univers 09:52:52 10:16:28 Visit Selina Tay 350.1.13.10 it y of [facility] 4.2.7.2.686 Darren as BANK [phone] [facility] BLDG. [address] 2021-01-01 2021-01-01 Outpatient R KRISHNA [facility] [id number] Univers 09:45:00 09:45:[id number] [facility] 2021-01-01 2021-01-01 Outpatient R KRISHNA [facility] [id number] Univers 09:45:00 09:45:[address] [facility] 2020-12-15 2020-12-15 Telephone Isabel [facility] 1.2.840.114 [id number] Univers 00:00:00 00:00:00 Alex Portillo 350.1.13.10 [place] [phone] In dical nal 092 [facility] 2020-09-18 2020-09-18 Office Krishna ELIO 1.2.044.654 [id number] Univers 09:53:46 11:32:24 Visit Selina Tay 350.1.13.10 it y of [facility] 4.2.7.2.686 Darren as BANK [phone] [facility] BLDG. [address] 2020-09-18 2020-09-18 Outpatient R KRISHNA [facility] [id number] Univers 10:00:00 10:00:[id number] ity [facility] 2020-09-18 2020-09-18 Outpatient R KRISHNA [facility] [id number] Univers 10:00:00 10:00:00 [facility] 2020-08-29 2020-08-29 Office [facility] 1.2.840.114 [id number] Univers 10:27:57 12:28:14 Visit Alex Portillo 350.1.13.10 ity [facility] 4[place]2.[place] [phone] [address] 2020-08-29 2020-08-29 Outpatient R ALEX HALL [facility] [id number] Univers 10:40:00 10:40:00 [facility]ALL [id number] [facility] 2020-08-29 2020-08-29 Outpatient R ALEX HALL [facility] [id number] Univers 10:40:00 10:40:[address] [facility] 2020-08-05 2020-08-05 Telephone Isabel, [facility] 1.2.840.114 [id number] Univers 00:00:00 00:00:00 Alex Portillo 350.1.13.10 [place] [phone] In dic[address] 2020-07-31 2020-07-31 Telephone Isabel [facility] 1.2.840.114 [id number] Univers 00:00:00 00:00:00 Alex Portillo 350.1.13.10 it[place] [phone] [address] 2020-07-28 2020-07-28 Outpatient ALEX JOY [facility] [id number] Univers 16:00:00 16:00:00 ALEX HALL [id number] ity [facility] 2020-07-28 2020-07-28 Outpatient R ALEX HALL [facility] [id number] Univers 16:00:00 16:00:00 [facility] 2020-07-28 2020-07-28 Office [facility] 1.2.840.114 [id number] Univers 15:29:13 15:49:13 Visit Alex Portillo 350.1.13.10 it[place] of [place] [phone] [address] 2020-07-24 2020-07-24 Telephone Isabel [facility] 1.2.840.114 [id number] Univers 00:00:00 00:00:00 Alex Portillo 350.1.13.10 [place] [phone] [address] 2020-07-16 2020-07-16 Orders Doctor TRACY 1.2.840.114 [id number] Univers 00:00:00 00:00:00 Only Unassigned, DA 350.1.13.10 ity of [place] [facility] 4.2.7.2.686 Darren as [phone] [address] 2020-06-02 2020-07-04 Office [facility] 1.2.840.114 [id number] 12:52:02 17:50:05 Visit Alex Portillo 350.1.13.10 [place] 4.2.7.2.686 Professio [phone] [address] 2020-06-02 2020-07-04 Office Isabel [facility] 1.2.840.114 [id number] Univers 12:52:02 17:50:05 Visit Alex Portillo 350.1.13.10 [place] [phone] In dical nal [address] [place] [address] 2020-07-04 2020-07-04 Office Isabel [facility] 1.2.840.114 [id number] Univers 14:58:19 15:47:39 Visit Alex Portillo 350.1.13.10 ity [facility] 4[place]2.[place].2.[place] [phone] In dic[address] 2020-07-04 2020-07-04 Outpatient Tyson ALEX HALL [facility] [id number] Univers 15:00:00 15:00:00 ALEX HALL [id number] [facility] 2020-07-04 2020-07-04 Outpatient ALEX JOY [facility] [id number] Univers 15:00:00 15:00:00 ALEX HALL [facility] 2020-06-18 2020-06-18 [facility] [id number] [id number] Univers 07:59:30 23:59:00 Encounter Alex Portillo 350.1.13.10 ity [facility] 4.2.7.2.[place] [phone] [facility] [address] [place] [address] 2020-06-18 2020-06-18 Outpatient ALEX JOY [facility] [id number] Univers 00:00:00 00:00:00 ALEX HALL [facility] 2020-06-18 2020-06-18 Outpatient ALEX JOY [facility] [id number] Univers 00:00:00 00:00:00 ALEX HALL mariely [facility] 2020-06-18 2020-06-18 [place] Isabel [facility] 1.2.840.114 [id number] Univers 00:00:00 00:00:00 Alex Portillo 350.1.13.10 it[place] of [place] [phone] In dic[address] 2020-06-11 2020-06-11 Orders Doctor TRACY 1.2.840.114 [id number] Univers 00:00:00 00:00:00 Only Unassigned, DA 350.1.13.10 ity of [place] [facility] 4.2.7.2.686 Darren as [phone] [address] 2020-06-10 2020-06-10 Refmarilyn Hall [facility] 1.2.840.114 [id number] Univers 00:00:00 00:00:00 Alex Patricia Deneen 350.1.13.10 it[place] of [place] [phone] [address] 2020-06-02 2020-06-02 Outpatient R ALEX HALL [facility] [id number] Univers 13:00:00 13:00:[address] [facility] 2020-06-02 2020-06-02 Orders Doctor TRACY 1.2.840.114 [id number] Univers 00:00:00 00:00:00 Only Unassigned, DA 350.1.13.10 ity of [place] [facility] 4.2.7.2.686 Darren as [phone] [address] Results Test Description Test Time Test Comments Results Result Comments Source POCT URINALYSIS, INSTRUMENT 2021-06-08 19:44:00 Test Item Value Reference Range Interpretation Comme nts POCT U SP GRAV (test code = 3255) 1.020 mg/dl 1.005-1.025 POCT PH U (test code = 3254) 5.0 mg/dl 5-8 POCT U LEUK EST (test code = 3263) Negative Negative - Negative POCT U NIT (test code = 3262) Negative Negative - Negative POCT U PROT (test code = 3259) Negative Negative - Negative POCT U GLU (test code = 3256) Negative - Negative POCT U KETONE (test code = 3258) Trace Negative - Negative POCT U UROBILI (test code = 3260) 0.2 mg/dl 0.2-1 POCT U BILI (test code = 3261) Negative Negative - Negative POCT U BLD (test code = 3257) Negative Negative - Negative POCT U COLOR (test code = 3266) yellow POCT U APPEAR (test code = 3267) clear Lab Interpretation (test code = 41649-5) Abnormal [facility] URINALYSIS, [id number] 19:44:00 Test Item Value Reference Range Interpretation Comments POCT U SP GRAV (test code = 1.020 mg/dl 1.005-1.025 3255) POCT PH U (test code = 3254) 5.0 mg/dl 5-8 POCT U LEUK EST (test code = Negative Negative - Negative 3263) POCT U NIT (test code = 3262) Negative Negative - Negative POCT U PROT (test code = Negative Negative - Negative 3259) POCT U GLU (test code = 3256) Negative - Negative POCT U KETONE (test code = Trace Negative - Negative 3258) POCT U UROBILI (test code = 0.2 mg/dl 0.2-1 3260) POCT U BILI (test code = Negative Negative - Negative 3261) POCT U BLD (test code = 3257) Negative Negative - Negative POCT U COLOR (test code = yellow 3266) POCT U APPEAR (test code = clear 3267) Lab Interpretation (test code Abnormal = 05677-0) [facility] URINALYSIS, [id number] 19:44:00 Test Item Value Reference Range Interpretation Comments POCT U SP GRAV (test code = 1.020 mg/dl 1.005-1.025 3255) POCT PH U (test code = 3254) 5.0 mg/dl 5-8 POCT U LEUK EST (test code = Negative Negative - Negative 3263) POCT U NIT (test code = 3262) Negative Negative - Negative POCT U PROT (test code = Negative Negative - Negative 3259) POCT U GLU (test code = 3256) Negative - Negative POCT U KETONE (test code = Trace Negative - Negative 3258) POCT U UROBILI (test code = 0.2 mg/dl 0.2-1 3260) POCT U BILI (test code = Negative Negative - Negative 3261) POCT U BLD (test code = 3257) Negative Negative - Negative POCT U COLOR (test code = yellow 3266) POCT U APPEAR (test code = clear 3267) Lab Interpretation (test code Abnormal = 75190-6) [facility] URINALYSIS, [id number] 14:42:00 Test Item Value Reference Range Interpretation Comments POCT U SP GRAV (test code = 1.030 mg/dl 1.005-1.025 A 3255) POCT PH U (test code = 3254) 5.5 mg/dl 5-8 POCT U LEUK EST (test code = Negative Negative - Negative 3263) POCT U NIT (test code = Negative Negative - Negative 3262) POCT U PROT (test code = Negative Negative - Negative 3259) POCT U GLU (test code = Negative Negative - Negative 3256) POCT U KETONE (test code = Trace Negative - Negative 3258) POCT U UROBILI (test code = 0.2 mg/dl 0.2-1 3260) POCT U BILI (test code = Negative Negative - Negative 3261) POCT U BLD (test code = Trace-intact Negative - Negative 3257) POCT U COLOR (test code = Dark Yellow 3266) POCT U APPEAR (test code = Clear 3267) Lab Interpretation (test Abnormal code = 65498-3) [facility] URINALYSIS, [id number] 14:42:00 Test Item Value Reference Range Interpretation Comments POCT U SP GRAV (test code = 1.030 mg/dl 1.005-1.025 A 3255) POCT PH U (test code = 3254) 5.5 mg/dl 5-8 POCT U LEUK EST (test code = Negative Negative - Negative 3263) POCT U NIT (test code = Negative Negative - Negative 3262) POCT U PROT (test code = Negative Negative - Negative 3259) POCT U GLU (test code = Negative Negative - Negative 3256) POCT U KETONE (test code = Trace Negative - Negative 3258) POCT U UROBILI (test code = 0.2 mg/dl 0.2-1 3260) POCT U BILI (test code = Negative Negative - Negative 3261) POCT U BLD (test code = Trace-intact Negative - Negative 3257) POCT U COLOR (test code = Dark Yellow 3266) POCT U APPEAR (test code = Clear 3267) Lab Interpretation (test Abnormal code = 64562-4) [facility], [id number] 14:42:00 Test Item Value Reference Range Interpretation Comments POCT U SP GRAV (test code = 1.030 mg/dl 1.005-1.025 A 3255) POCT PH U (test code = 3254) 5.5 mg/dl 5-8 POCT U LEUK EST (test code = Negative Negative - Negative 3263) POCT U NIT (test code = Negative Negative - Negative 3262) POCT U PROT (test code = Negative Negative - Negative 3259) POCT U GLU (test code = Negative Negative - Negative 3256) POCT U KETONE (test code = Trace Negative - Negative 3258) POCT U UROBILI (test code = 0.2 mg/dl 0.2-1 3260) POCT U BILI (test code = Negative Negative - Negative 3261) POCT U BLD (test code = Trace-intact Negative - Negative 3257) POCT U COLOR (test code = Dark Yellow 3266) POCT U APPEAR (test code = Clear 3267) Lab Interpretation (test Abnormal code = 29433-6) [facility] ABDOMEN [id number] 22:00:11 Subcentimeter gallbladder wall polyp. Otherwise, unremarkable sonographicappearance of the right upper quadrant. Preliminary Report Dictated by Resident: Evelia Ramos I, Barak Chicas MD., have reviewed this study and agree with the abovereport.EXAM: US ABDOMEN LIMITED HISTORY: 75 years-old Male withevaluate for gallbladder polyp found on CTscan. . TECHNIQUE: Limited abdominal ultrasound was performed focused on the rightupper quadrant. Main portal vein was evaluated with color Doppler imaging.[employer] Teacher images were obtained for the record. COMPARISON: CT abdomen and pelvis dated 04/10/2021. FI NDINGS: LIVER: Length: 14.5 cm.Parenchyma: Normal hepatic echogenicity and echotexture. No focal lesion isdetected.Portal vein: Hepatopetal flow present in the main portal vein. The mainportal vein measures 10.8 mm in diameter. GALLBLADDER:A 5mm non-mobile lesion projecting into the gallbladder adjacent to thegallbladder neck (see image 43/84) represents a gallbladder wall polyp. Nocholelithiasis isseen. Normal gallbladder wall thickness measuring 2.6 mm.Sonographic Hubbard sign could not be elicited. BILE DUCTS:No intra- or extrahepatic biliary dilatation..Common Duct diameter: 2.2 mm. PANCREAS: Limited visualization due to shadowing from bowel gas.. RIGHT KIDNEY:The visualized portion of the right kidney has normal cortical echogenicityand thickness. AORTA:Abdominal aorta is normal in caliberwhere visualized. Diameter of theproximal abdominal aorta is 2.3 cm. IVC:IVC is normal in appearancewhere visualized. [facility], Radiant Results Inft User - 04/24/2021 5:16 PM CDT EXAM: US ABDOMEN LIMITEDHISTORY: 75 years-old Male with evaluatefor gallbladder polyp found on CTscan. .TECHNIQUE: Limited abdominal ultrasound was performed focused on the rightupper quadrant. Main portal vein was evaluated with color Doppler imaging.[employer] Teacher images were obtained for the record.COMPARISON: CT abdomen and pelvis dated 04/10/2021.FINDINGS: LIVER: Length: 14.5 cm.Parenchyma: Normal hepatic echogenicity and echotexture. No focal lesion isdetected.Portal vein: Hepatopetal flow present in the main portal vein. The mainportal vein measures 10.8 mm in diameter.GALLBLADDER:A 5mm non-mobile lesion projecting into the gallbladder adjacent to thegallbladder neck (see image 43/84) represents a gallbladder wall polyp. Nocholelithiasis is seen. Normal gallbladder wall thickness measuring 2.6 mm.Sonographic Hubbard sign could not be elicited.BILE DUCTS:No intra- or extrahepatic biliary dilatation..Common Duct diameter: 2.2 mm.PANCREAS: Limited visualization due to shadowing from bowel gas.. RIGHT KIDNEY:The visualized portion of the right kidney has normal cortical echogenicityand thickness.AORTA:Abdominal aorta is normal in caliber where visualized.Diameter of theproximal abdominal aorta is 2.3 cm.IVC:IVC is normal in appearance where visualized. IMPRESSIONSubcentimeter gallbladder wall polyp. Otherwise, unremarkable sonographicappearance of the right upper quadrant.Preliminary Report Dictated by Resident: Evelia Flynn, Barak Chicas MD., havereviewed this study and agree with the abovereport.[facility] WO [id number] 18:57:151. There is an 8 mm enhancing lesion within the gallbladder neck,nonspecific. However, this raises concern for possible polyp versusmalignant process. An MRI of the abdomen before and after contrastclinical: For further evaluation.2. No nephrolithiasis or evidence of filling defect within the urothelialsystem to suggest malignancy.3. Moderate enlargement of the prostate gland. RL: 4131 End of report RING PHYSICIAN: FELIX MAO CLINICAL HISTORY: Hematuria, unknown cause COMPARISON: None available. TECHNIQUE: Helical CT images of the abdomen and pelvis were obtained beforeof intravenous contrast with additional delayed postcontrast im ages. CTperformed with ALARA (As Low As Reasonably Achievable) principles. FINDINGS: Incompletely imaged coronary artery calcifications. Mild patchy opacitiesin the bilateral lower lobes. The liver isnormal. There is an 8 mm enhancing lesion within thegallbladder neck.. The spleen, pancreas, ?and adrenal glands areunremarkable. The kidneys are unremarkable without focal lesion or hydronephrosis. On thenoncontrast images, no renal stones are identified. On the delayedpostcontrast images, there is opacification of the renal calyces andureters without filling defect identified. There is layering contrastwithin the dependent bladder. No focal bladder wall thickening. Theprostate gland is moderatelyenlarged. No bowel obstruction or perinephric inflammatory changes. Milddiverticulosis. The appendixis not visualized but there are no pericecalinflammatory changes suggesting acute appendicitis. The abdominal aorta is normal size and contour. No abnormally enlargedlymph nodes are identified. No freeair or free fluid. ? No acute fracture or aggressive osseous lesion. Degenerative changes of thebilateral sacroiliac joints and lower lumbar spine. [facility], Radiant Results Inft User - 04/10/2021 1:58 PMCDT ORDERING PHYSICIAN: FELIX ALZWERICLINICAL HISTORY: Hematuria, unknown causeCOMPARISON: None available.TECHNIQUE: Helical CT images of theabdomen and pelvis were obtained beforeof intravenous contrast with additional delayed postcontrast images. CTperformed with ALARA (As Low As Reasonably Achievable) principles.FINDINGS: Incompletely imaged coronary artery calcifications. Mild patchy opacitiesin the bilateral lower lobes.The liver is normal. There is an 8 mm enhancing lesion within thegallbladder neck.. The spleen, pancreas, and adrenal glands areunremarkable. The kidneys are unremarkable without focal lesion or hydronephrosis. On thenoncontrast images, no renal stones are identified. On the delayedpostcontrast images, there is opac ification of the renal calyces andureters without filling defect identified. There is layering contrastwithin the dependent bladder. No focal bladder wall thickening. Theprostate gland is moderately enlarged.No bowel obstruction or perinephric inflammatory changes. Milddiverticulosis. The appendix is not visualized but there are no pericecalinflammatory changes suggesting acute appendicitis.The abdominal aorta is normal size and contour. No abnormally enlargedlymph nodes are identified. No free air or free fluid. No acute fracture or aggressive osseous lesion. Degenerative changes of thebilateral s acroiliac joints and lower lumbar spine.IMPRESSION1. There is an 8 mm enhancing lesion within the gallbladder neck,nonspecific. However, this raises concern for possible polyp versusmalignant process. An MRI of the abdomen before and after contrastclinical: For further evaluation.2. No nephrolithiasisor evidence of filling defect within the urothelialsystem to suggest malignancy.3. Moderate enlargement of the prostate gland.RL: 4131 End of report [facility] [id number] 17:07:04 Test Item Value Reference Range Interpretation Comments URINE CULTURE (test No aerobic growth (< code = 630-4) 1000 CFU/mL) [facility] SPECIFIC [id number] 19:54:14 Test Item Value Reference Range Interpretation Comments PSA (test code = 3.77 ng/mL See_Comment [Automated [id number]) message] The system which generated this result transmitted reference range : <=4.00. The reference range was not used to interpret this result as normal/abnormal . TEA (test code = TEA) Biotin has been reported to cause a negative bias, interpret results relative to patient's use of biotin. Lab Interpretation Normal (test code = 31168-6) [facility]. METABOLIC PANEL ([id number])2021-03-24 19:29:10 Test Item Value Reference Range Interpretation Comments NA (test code = 135 mmol/L 135-145 6672733725) K (test code = 4.6 mmol/L 3.5-5.0 8576127700) CL (test code = 102 mmol/L 98-108 9097829285) CO2 TOTAL (test code = 25 mmol/L 23-31 9341003476) AGAP (test code = 2-16 4810691370) BUN (test code = 17 mg/dL 7-23 4409454982) GLUCOSE (test code = 176 mg/dL 70-110 H 0456377980) CREATININE (test code = 0.83 mg/dL 0.60-1.25 9668051398) TOTAL BILI (test code = 0.6 mg/dL 0.1-1.0 4221672788) CALCIUM (test code = 10.2 mg/dL 8.6-10.6 2328742589) T PROTEIN (test code = 7.3 g/dL 6.3-8.2 0414890972) ALBUMIN (test code = 4.0 g/dL 3.5-5.0 9311472830) ALK PHOS (test code = 72 U/L 34-122 1045843483) ALTv (test code = 17 U/L 5-50 1742-6) AST(SGOT) (test code = 18 U/L 13-40 9319841206) eGFR (test code = mL/min/1.73m2 8343951848) TEA (test code = TEA) Association of Glomerular Filtration Rate (GFR) and Staging of Kidney Disease* + --+ --+ ------+| GFR (mL/min/1.73 m2) ?| With Kidney Damage ?| ?Without Kidney Damage+ --------+ --------+ +| ?>90 ?| ?Stage one ?| ? Normal ?+ ---+ ---+ -------+| ?60-89 ?| ?Stage two ?| ? Decreased GFR ? + --+ --+ ------+| ?30-59 ?| ?Stage three ?| ? Stage three ? + --+ --+ ------+| ?15-29 ?| ?Stage four ? | ? Stage four ?+ ---+ ---+ -------+| ?<15 (or dialysis) ? ?| ?Stage five ? | ? Stage five ?+ ---+ ---+ -------+ *Each stage assumes the associated GFR level has been in effect for at least three months. ?Stages 1 to 5, with or without kidney disease, indicate chronic kidney disease. Notes: Determination of stages one and two (with eGFR >59mL/min/1.73 m2) requires estimation of kidney damage for at least three months as defined by structural or functional abnormalities of the kidney, manifested by either:Pathological abnormalities or Markers of kidney damage (including abnormalities in the composition of the blood or urine or abnormalities in imaging tests). Lab Interpretation Abnormal (test code = 18843-9) [facility] URINALYSIS, [id number] 21:34:00 Test Item Value Reference Range Interpretation Comments POCT U SP GRAV (test code = 1.020 mg/dl 1.005-1.025 3255) POCT PH U (test code = 3254) 7.0 mg/dl 5-8 POCT U LEUK EST (test code = Moderate Negative - Negative 3263) POCT U NIT (test code = 3262) Positive Negative - Negative POCT U PROT (test code = Negative - Negative 3259) POCT U GLU (test code = 3256) Negative - Negative POCT U KETONE (test code = Trace Negative - Negative 3258) POCT U UROBILI (test code = 0.2 mg/dl 0.2-1 3260) POCT U BILI (test code = Negative Negative - Negative 3261) POCT U BLD (test code = 3257) Trace Negative - Negative POCT U COLOR (test code = yellow 3266) POCT U APPEAR (test code = clear 3267) Lab Interpretation (test code Abnormal = 37159-6) [facility] URINALYSIS, [id number] 21:34:00 Test Item Value Reference Range Interpretation Comments POCT U SP GRAV (test code = 1.020 mg/dl 1.005-1.025 3255) POCT PH U (test code = 3254) 7.0 mg/dl 5-8 POCT U LEUK EST (test code = Moderate Negative - Negative 3263) POCT U NIT (test code = 3262) Positive Negative - Negative POCT U PROT (test code = Negative - Negative 3259) POCT U GLU (test code = 3256) Negative - Negative POCT U KETONE (test code = Trace Negative - Negative 3258) POCT U UROBILI (test code = 0.2 mg/dl 0.2-1 3260) POCT U BILI (test code = Negative Negative - Negative 3261) POCT U BLD (test code = 3257) Trace Negative - Negative POCT U COLOR (test code = yellow 3266) POCT U APPEAR (test code = clear 3267) Lab Interpretation (test code Abnormal = 38216-3) [facility] CONTRAST WITH [id number] 15:25:23 No acute intracranial abnormality. NeuroQuant Age Related Atrophy report demonstrates Normal Scan:Does notsupport neurodegeneration. EXAMINATION: MR BRAIN WO CONTRAST WITH NEUROQUANT HISTORY: Suspected Alzheimer's. COMPARISON: None. Technique: Multiplanar multisequence MRI of the brain was performed withoutintravenous contrast administration. Quantitative volumetry of the brain was performed using NeuroQuant([employer], [place], [place]) software package. The NeuroQuantanalysis was based on a sagittal 3D volumetric MPRAGE pulse sequence.Sequence-checking was performed to ensure appropriate high-resolution andcontrast image parameters. Correction for field/gradient inhomogeneities,removal of the overlying calvaria, alignment to the probabilistic atlas ofstereotypical anatomy and segmented volumetry of predetermined anatomicareas derived from multiple subjects of multiple age groupswas performed.Two automated reports were generated. FINDINGS: There are foci of increased T2/FLAIR signal in the white matter which arenonspecific but likely sequelae of chronic ischemia. No intracranial hemorrhage or mass. The ventricles and sulci are prominent but within normal limits for age andnon displaced. ?No acute infarct. The calvarium is normal. Bilateral pseudophakia. Mild paranasal sinusmucosal thickening. Age Related Atrophy report demonstrates: Hippocampal Occupancy Score: 0.61.Hippocampi volume: 5.43 cc, normative percentile of 33.Superior Lateral Ventricles volume: 37.71, normativepercentile of 52. Inferior Lateral Ventricles volume: 3.44, normative percentile of 92. The values listed above were within 2 SD of the mean. [facility], Radiant Results Inft User - 06/18/2020 10:26 AM CDTEXAMINATION: MR BRAIN WO CONTRAST WITH NEUROQUANTHISTORY: Suspected Alzheimer's. COMPARISON: None. Technique: Multiplanar multisequence MRI of the brain was performed withoutintravenous contrast administration. Quantitative volumetry of the brain was performed using [employer], [place], [place]) software package. The NeuroQuantanalysis was based on a sagittal 3D volumetric MPRAGE pulse sequence.Sequence-checking was performed to ensure appropriate high-resolution andcontrast image parameters. Correction for field/gradient inhomogeneities,removal of the overlying calvaria, alignmentto the probabilistic atlas ofstereotypical anatomy and segmented volumetry of predetermined anatomica reas derived from multiple subjects of multiple age groups was performed.Two automated reports were generated. FINDINGS:There are foci of increased T2/FLAIR signal in the white matter which arenonspecific but likely sequelae of chronic ischemia. No intracranial hemorrhage or mass. The ventricles and sulci are prominent but within normal limits for age andnondisplaced. No acute infarct. The calvariumis normal. Bilateral pseudophakia. Mild paranasal sinusmucosal thickening.Age Related Atrophy reportdemonstrates:Hippocampal Occupancy Score: 0.61.Hippocampi volume: 5.43 cc, normative percentile of 33.Superior Lateral Ventricles volume: 37.71, normative percentile of 52. Inferior Lateral Ventricles volume: 3.44, normative percentile of 92. The values listed above were within 2 SD of the mean.IMPRESSIONNo acute intracranial abnormality. NeuroQuant Age Related Atrophy report demonstrates Normal Scan: Does notsupport neurodegeneration.[facility]"
[2021-10-14] MEDS ORDERED: BUPIVACAINE 0.5% PF 10 ML VIAL ONE (00:13)
[2021-10-14] MEDS ORDERED: LIDOCAINE 1% MPF 5 ML VIAL ONE (00:13)
[2021-10-14] MEDS ORDERED: SMZ./TMP. 800/160 MG TABLET ONE (00:23)
--- NOTE | 2021-10-14 00:25 | ER ---
Nurse's Notes [facility] Name: Todd Alvarez Age: 76 yrs Sex: Male : 1945 Arrival Date: 10/13/2021 Time: 21:46 Bed 17 Private MD: Diagnosis: Local infection of the skin and subcutaneous tissue, unspecified Presentation: 10/13 22:47 Chief complaint: Patient states: Got a splinter in left index finger 2 days ago, ll3 tonight pt states he used a knife to cut his finger and try to get the splinter out but was unable to. Coronavirus screen: Vaccine status: Patient reports receiving the 2nd dose of the covid vaccine. At this time, the client does not indicate any symptoms associated with coronavirus-19. Ebola Screen: No symptoms or risks identified at this time. Initial Sepsis Screen: Does the patient meet any 2 criteria? No. Patient's initial sepsis screen is negative. Does the patient have a suspected source of infection? Yes: Skin breakdown/wound. Risk Assessment: Do you want to hurt yourself or someone else? Patient reports no desire to harm self or others. Onset of symptoms was October 11, 2021. Mechanism of Injury: Laceration sustained Cut own finger open with knife to try to remove a splinter. 22:47 Method Of Arrival: Ambulatory ll3 22:47 Acuity: AIDE 3 ll3 Triage Assessment: 22:51 General: Appears in no apparent distress. uncomfortable, Behavior is calm, cooperative. ll3 Pain: Complains of pain in palmar aspect of proximal phalanx of left index finger Pain currently is 8 out of 10 on a pain scale. EENT: No deficits noted. Neuro: No deficits noted. Cardiovascular: Patient's skin is warm and dry. Respiratory: Respiratory effort is even, unlabored, Respiratory pattern is regular, symmetrical. Derm: Wound noted palmar aspect of proximal phalanx of left index finger Abscess located on palmar aspect of proximal phalanx of left index finger Reports pain. Injury Description: Laceration sustained to palmar aspect of proximal phalanx of left index finger. Historical: - Allergies: 22:51 No Known Allergies; ll3 - PMHx: 22:51 Diabetes mellitus; Hypertensive disorder; ll3 - PSHx: 22:51 None; ll3 - Immunization history:: Client reports receiving the 2nd dose of the Covid vaccine. - Social history:: Smoking status: Patient reports the use of cigarette tobacco products, 10 cigarettes per day. Screenin:23 Abuse screen: Denies threats or abuse. Nutritional screening: No deficits noted. al4 Tuberculosis screening: No symptoms or risk factors identified. Fall Risk None identified. Assessment: 23:20 General: Appears in no apparent distress. comfortable, Behavior is calm, cooperative, al4 appropriate for age. Pain: Complains of pain in palmar aspect of distal phalanx of left index finger, palmar aspect of middle phalanx of left index finger and palmar aspect of proximal phalanx of left index finger Pain currently is 8 out of 10 on a pain scale. Neuro: Level of Consciousness is awake, alert, obeys commands, Oriented to person, place, time, situation. Cardiovascular: Capillary refill < 3 seconds Patient's skin is warm and dry. Respiratory: Airway is patent Respiratory effort is even, unlabored, Respiratory pattern is regular, symmetrical. GI: No signs and/or symptoms were reported involving the gastrointestinal system. : No signs and/or symptoms were reported regarding the genitourinary system. EENT: No signs and/or symptoms were reported regarding the EENT system. Derm: Skin is pink, warm \T\ dry. Wound noted left hand and palmar aspect of proximal phalanx of left index finger Other: open wound that is red and inflamed with puss. Musculoskeletal: No signs and/or symptoms reported regarding the musculoskeletal system. Injury Description: Puncture sustained to left index finger. 10/14 00:23 Reassessment: Patient and/or family updated on plan of care and expected duration. Pain al4 level reassessed. Patient is alert, oriented x 3, equal unlabored respirations, skin warm/dry/pink. Vital Signs: 10/13 22:47 BP 138 / 88; Pulse 76; Resp 15; Temp 99.3(TE); Pulse Ox 98% on R/A; Weight 79.38 kg ll3 (R); Height 5 ft. 5 in. (165.10 cm) (R); Pain 8/10; 23:23 BP 147 / 85; Pulse 80; Resp 18; Pulse Ox 99% ; al4 10/14 00:18 BP 122 / 67; Pulse 100; Resp 16; Pulse Ox 98% ; al4 10/13 22:47 Body Mass Index 29.12 (79.38 kg, 165.10 cm) ll3 ED Course: 10/13 21:46 Patient arrived in ED. wm 22:51 Triage completed. ll3 22:51 Vandana Barron FNP-C is [facility]. kb 22:51 Paresh Shelton MD is Attending Physician. kb 22:53 Arm band placed on. ll3 23:23 Patient has correct armband on for positive identification. Bed in low position. Side al4 rails up X 1. daughter with patient. Pulse ox on. NIBP on. 23:32 Hand Left 3 View XRAY In Process Unspecified. EDMS 23:39 Jon Rhoades is Primary Nurse. al4 10/14 00:35 Saqib Tavarez MD is Referral Physician. kb 00:38 No provider procedures requiring assistance completed. Patient did not have IV access al4 during this emergency room visit. Administered Medications: 00:19 Drug: Lidocaine (1 %) 1 vials {Note: given by LIBORIO Gu.} Volume: 5 ml; al4 Route: Infiltration; 00:19 Drug: Marcaine (bupivacaine) (0.5 %) 1 vials {Note: given by LIBORIO Gu al4 .} Volume: 10 ml; Route: Infiltration; 00:23 Drug: Bactrim (trimethoprim-sulfamethoxazole) (160 mg-800 mg (DS) 1 tablet Route: PO; al4 00:38 Follow up: Response: No adverse reaction al4 Outcome: 00:24 Discharge ordered by . kb 00:38 Discharged to home ambulatory, with family. al4 00:38 Condition: stable 00:38 Discharge instructions given to patient, family, Instructed on discharge instructions, follow up and referral plans. medication usage, Demonstrated understanding of instructions, follow-up care, medications, Prescriptions given X 1. 00:40 Patient left the ED. al4 Signatures: Dispatcher [employer] EDCT Vandana Barron FNP-C FNP-Ckb Marsh, Wendy Laurent Chamberlain RN RN ll3 Jon Rhoades al4 Corrections: (The following items were deleted from the chart) 00:19 10/13 23:23 BP 147 / 85; al4 al4
--- NOTE | 2021-10-14 00:25 | EDPHYS ---
Physician Documentation [facility] Name: Todd Alvarez Age: 76 yrs Sex: Male : 1945 Arrival Date: 10/13/2021 Time: 21:46 Bed 17 Private MD: ED Physician Paresh Shelton HPI: 10/14 00:02 This 76 yrs old Male presents to ER via Ambulatory with complaints of Wound kb Infection - Index finger. 00:02 The patient or guardian reports decreased range of motion, injury, pain, swelling, kb tenderness. The complaints affect the dorsal aspect of middle phalanx of left index finger and dorsal aspect of proximal phalanx of left index finger. Context: The problem was sustained at home, resulted from splinter. Onset: The symptoms/episode began/occurred 4 day(s) ago. Modifying factors: The symptoms are alleviated by nothing, the symptoms are aggravated by nothing. Associated signs and symptoms: The patient has no apparent associated signs or symptoms. Severity of symptoms: At their worst the symptoms were moderate, in the emergency department the symptoms are unchanged. The patient has not experienced similar symptoms in the past. The patient has not recently seen a physician. Pt reports he got a large splinter in his left index finger 4 days ago. Removed the splinter, but felt like it was still in there so today he tried to remove what was left with a knife. reports pain and swelling to left index finger. Historical: - Allergies: 10/13 22:51 No Known Allergies; ll3 - PMHx: 22:51 Diabetes mellitus; Hypertensive disorder; ll3 - PSHx: 22:51 None; ll3 - Immunization history:: Client reports receiving the 2nd dose of the Covid vaccine. - Social history:: Smoking status: Patient reports the use of cigarette tobacco products, 10 cigarettes per day. ROS: 10/14 00:00 Constitutional: Negative for fever, chills, and weight loss. kb MS/extremity: Positive for pain, swelling, tenderness, of the dorsal aspect of middle phalanx of left index finger and dorsal aspect of proximal phalanx of left index finger. All other systems are negative. Exam: 00:00 Constitutional: This is a well developed, well nourished patient who is awake, alert, kb and in no acute distress. Head/Face: Normocephalic, atraumatic. ENT: Moist Mucous membranes Respiratory: Respirations even and unlabored. No increased work of breathing. Talking in full sentences Neuro: Awake and alert, GCS 15, oriented to person, place, time, and situation. Moves all extremities. Normal gait. Psych: Awake, alert, with orientation to person, place and time. Behavior, mood, and affect are within normal limits. 00:00 Musculoskeletal/extremity: Extremities: grossly normal except: noted in the left index finger: decreased ROM, pain, swelling, tenderness, ROM: limited active range of motion due to pain, in the left index finger, Circulation is intact in all extremities. Sensation intact. 00:00 Skin: abscess, that is small, of the dorsal aspect of proximal phalanx of left index finger. Vital Signs: 10/13 22:47 BP 138 / 88; Pulse 76; Resp 15; Temp 99.3(TE); Pulse Ox 98% on R/A; Weight 79.38 kg ll3 (R); Height 5 ft. 5 in. (165.10 cm) (R); Pain 8/10; 23:23 BP 147 / 85; Pulse 80; Resp 18; Pulse Ox 99% ; al4 10/14 00:18 BP 122 / 67; Pulse 100; Resp 16; Pulse Ox 98% ; al4 10/13 22:47 Body Mass Index 29.12 (79.38 kg, 165.10 cm) ll3 Procedures: 00:23 I \T\ D: Incision and drainage was performed for an abscess of the palmar aspect of kb proximal phalanx of left index finger Prepped with Betadine, Incised with #11 blade. Drained small amount purulent fluid. Dressing: sterile 4x4 gauze, the patient tolerated the procedure well. Nerve block: (digital) of palmar aspect of proximal phalanx of left index finger Medication: Lidocaine 1% without epinephrine Marcaine 0.5%, Amount: 4 mls were injected, Effect: the patient has resolution of the pain, Set up for procedure. Performed by Vandana GUO Patient tolerated well. MDM: 10/13 23:14 Patient medically screened. kb 10/14 00:00 Data reviewed: vital signs, nurses notes. Data interpreted: Pulse oximetry: on room air kb is 98 %. Interpretation: normal. 00:02 ED course: Able to express small amount of purulent drainage from opening in finger. . kb 00:04 Counseling: I had a detailed discussion with the patient and/or guardian regarding: the kb historical points, exam findings, and any diagnostic results supporting the discharge/admit diagnosis, radiology results, the need for outpatient follow up, a hand specialist, to return to the emergency department if symptoms worsen or persist or if there are any questions or concerns that arise at home. 00:23 ED course: Educated to follow up with Dr Tavarez if symptoms do not improve or kb worsen. . 10/13 23:18 Order name: Hand Left 3 View XRAY kb Administered Medications: 00:19 Drug: Lidocaine (1 %) 1 vials {Note: given by LIBORIO Gu.} Volume: 5 ml; al4 Route: Infiltration; 00:19 Drug: Marcaine (bupivacaine) (0.5 %) 1 vials {Note: given by LIBORIO Gu al4 .} Volume: 10 ml; Route: Infiltration; 00:23 Drug: Bactrim (trimethoprim-sulfamethoxazole) (160 mg-800 mg (DS) 1 tablet Route: PO; al4 00:38 Follow up: Response: No adverse reaction al4 Disposition: 00:43 Co-signature as Attending Physician, Paresh Shelton MD I agree with the assessment and rn plan of care. Attestation: The patient's history, exam findings, diagnostics, and a summary of any interventions or procedures was reviewed in detail with Vandana GUO. Disposition Summary: 10/14/21 00:24 Discharge Ordered Location: Home kb Condition: Stable kb Diagnosis - Local infection of the skin and subcutaneous tissue, unspecified kb Followup: kb - With: Emergency Department - When: As needed - Reason: Worsening of condition Followup: kb - With: Private Physician - When: 2 - 3 days - Reason: Recheck today's complaints, Continuance of care, Re-evaluation by your physician Followup: kb - With: Saqbi Tavarez MD - When: 1 - 2 days - Reason: Recheck today's complaints Discharge Instructions: - Discharge Summary Sheet kb - Wound Infection, [id number] kb Forms: - Medication Reconciliation Form kb - Thank You Letter kb - Antibiotic Education kb - Prescription Opioid Use kb - Family Work Release al4 Prescriptions: - Bactrim DS 800-160 mg Oral Tablet - take 1 tablet by ORAL route every 12 hours for 10 days; 20 tablet; Refills: 0, kb Product Selection Permitted Signatures: Dispatcher [employer] Vandana Lawler, Paresh Joyner MD MD rn Laurent Chamberlain RN RN ll3 Jon Rhoades
[2021-10-14 01:40] VITALS: TEMP 99.3
[2021-10-14 01:43] VITALS: BP 122/67; O2SAT 98
--- NOTE | 2021-10-14 10:57 | RAD REPORT ---
EXAM DESCRIPTION: RAD - Hand Left 3 View - 10/13/2021 11:32 pm CLINICAL HISTORY: r/o fb COMPARISON: None. FINDINGS: Final report was delayed due to technical factors. No fracture is identified. There is no dislocation or periosteal reaction. IP joint degenerative ivon nges are present with marginal spurring. No erosive component. Minimal MCP joint degenerative changes are present. Degenerative changes are mild at the trapezium first metacarpal articulation. No pathologic or destructive bone process. Soft tissue swelling is present around the proximal second digit. No air or foreign body seen in the soft tissues of the hand. IMPRESSION: No foreign body identifiable. Joint degenerative changes are present as detailed. No acute or destructive bone process. Laquita the tech notes indicate this was sent to [facility] but there was no report of the attached car e so to contain spine report an intact but abdomen dictate a obscuring than delete this commentary on pudding on hair
== END 2021-10-14 00:40 | disposition home or self-care (01) ==
LOC: ER 21:40
PROC: 0H9GXZZ Drainage of Left Hand Skin, External Approach (ICD-10-PCS; principal; 2021-10-14)
DX: L02.512 Cutaneous abscess of left hand (principal)
CPT/HCPCS: 64450; 99284

== ENCOUNTER 2021-10-15 09:36 | Emergency (ER) | payer OTHER ==
--- OUTSIDE RECORDS SUMMARY | 2021-10-15 09:43 | XMS REPORT | Continuity of Care Document ---
:1945 Author Organization [facility] t Address 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 2-19 ity [place] [facility] [facility] knee knee Branch 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 0-14 ity of mellitus mellitus 00:00: [place] [facility] Branch Hypertensi Hypertensi Disease Active 2018-09 U nivers on on 0-14 ity of 00:00: [place] [facility] Chronic Chronic Disease Active 2018-09 Univers heart heart 0-14 ity of disease disease 00:00: [place] [facility] Arthritis Arthritis Disease Active 2018-09 Uni vers of both of both 0-14 ity of hips hips 00:00: [place] [facility] Allergies, Adverse Reactions, Alerts Allergy Allergy Status Severity Reaction(s) Onset Inactive Treating Comm ents Source Name Type Date Date Clinician NO KNOWN Drug Active Univers ALLERGIE Class ity of S [facility] Social History Social Habit Start Date Stop Date Quantity Comments Source History of tobacco Cigarette Smoker University of use [facility] Exposure to Not sure [facility] SARS-CoV-2 (event) [facility] Cigarettes smoked 2020-06-02 2020-06-02 Univers ity of current (pack per 00:00:00 00:00:00 ) - Reported Branch Tobacco use and 2020-06-02 2020-06-02 Never used Universit y of exposure 00:00:00 00:00:00 [facility] Sex [birth year] At [birth year] Universit y of 00:00:00 00:00:00 [facility] Smoking Status Start Date Stop Date Source Current every day smoker 2020-06-02 00:00:00 Uni versity of [facility] Medications Ordered Filled Start Stop Current Ordering Indication Dosage Frequency Signature Comments Components Source Medication Medication Date Date Medication? Clinician (SIG) Name Name galantamine Yes [id number] 8mg Take 1 Univers 8 mg tablet 1-24 tablet by ity of 00:00: mouth 2 [place] (two) Medical times [facility] daily. galantamine Yes [id number] 8mg Take 1 Univers 8 mg tablet 9-03 tablet by ity of 00:00: mouth 2 [place] (two) Medical times [facility] daily. galantamine Yes [id number] 8mg Take 1 Univers 8 mg tablet 9-03 tablet by ity of 00:00: mouth 2 [place] (two) Medical times [facility] daily. galantamine 2021-0 Yes [id number] 8mg Take 1 Univers 8 mg tablet 9-03 tablet by ity of 00:00: mouth 2 [place] 00 (two) Medical times Branch daily. galantamine 2020-0 Yes [id number] 8mg Take 1 Univers 8 mg tablet 9-03 tablet by ity of 00:00: mouth 2 [place] 00 (two) Medical times Branch daily. galantamine 2020-0 Yes [id number] 8mg Take 1 Univers 8 mg tablet 9-03 tablet by ity of 00:00: mouth 2 [place] 00 (two) Medical times Branch daily. galantamine 2020-0 Yes [id number] 8mg Take 1 Univers 8 mg tablet 9-03 tablet by ity of 00:00: mouth 2 [place] 00 (two) Medical times Branch daily. galantamine 2020-0 Yes [id number] 8mg Take 1 Univers 8 mg tablet 9-03 tablet by ity of 00:00: mouth 2 [place] 00 (two) Medical times Branch daily. galantamine 2020-0 Yes [id number] 8mg Take 1 Univers 8 mg tablet 9-03 tablet by ity of 00:00: mouth 2 [place] 00 (two) Medical times Branch daily. galantamine 2020-2021- No [id number] 8mg Take 1 Univers 8 mg tablet 9-03 01-24 tablet by it y of 00:00: 00:00 mouth 2 [place] 00 :00 (two) Medical times Branch daily. tamsulosin 2020- No [id number] .4mg Take 1 Univers (FLOMAX) 04-27 9102 capsule by ity of 0.4 mg 24 00:00: 04:59 mouth [place] hr capsule 00 :00 daily for Medi manohar 30 days. Branch tamsulosin 2020- No [id number] .4mg Take 1 Univers (FLOMAX) 04-27 9102 capsule by ity of 0.4 mg 24 00:00: 04:59 mouth [place] hr capsule 00 :00 daily for Medi manohar 30 days. Branch iopamidol 2020- No [id number] 100mL 100 mL, Univers (ISOVUE 04-10 Intravenou ity o f 370-500 mL) 16:46: 16:46 s, ONCE, 1 [place] injection 00 :00 dose, Fri Medic al 100 mL 04/10/21 at Branch 1200, Routine cephALEXin 2021-0 Yes [id number] 500mg Take 1 Univers (KEFLEX) 7-01 capsule by ity o f 500 mg 00:00: mouth 2 [place] capsule 00 (two) Medical times Branch daily. cephALEXin 2021-0 Yes [id number] 500mg Take 1 Univers (KEFLEX) 7-01 capsule by ity o f 500 mg 00:00: mouth 2 [place] capsule 00 (two) Medical times Branch daily. cephALEXin 2021-0 Yes [id number] 500mg Take 1 Univers (KEFLEX) 7-01 capsule by ity o f 500 mg 00:00: mouth 2 [place] capsule 00 (two) Medical times Branch daily. cephALEXin 2021-0 Yes [id number] 500mg Take 1 Univers (KEFLEX) 7-01 capsule by ity o f 500 mg 00:00: mouth 2 [place] capsule 00 (two) Medical times Branch daily. cephALEXin 2021-0 Yes [id number] 500mg Take 1 Univers (KEFLEX) 7-01 capsule by ity o f 500 mg 00:00: mouth 2 [place] capsule 00 (two) Medical times Branch daily. cephALEXin 2021-0 Yes [id number] 500mg Take 1 Univers (KEFLEX) 7-01 capsule by ity o f 500 mg 00:00: mouth 2 [place] capsule 00 (two) Medical times Branch daily. cephALEXin 2021-0 Yes [id number] 500mg Take 1 Univers (KEFLEX) 7-01 capsule by ity o f 500 mg 00:00: mouth 2 [place] capsule 00 (two) Medical times Branch daily. cephALEXin 2021-0 Yes [id number] 500mg Take 1 Univers (KEFLEX) 7-01 capsule by ity o f 500 mg 00:00: mouth 2 [place] capsule 00 (two) Medical times Branch daily. cephALEXin 2021-0 Yes [id number] 500mg Take 1 Univers (KEFLEX) 7-01 capsule by ity o f 500 mg 00:00: mouth 2 [place] capsule 00 (two) Medical times Branch daily. cephALEXin 2021-0 Yes [id number] 500mg Take 1 Univers (KEFLEX) 7-01 capsule by ity o f 500 mg 00:00: mouth 2 [place] capsule 00 (two) Medical times Branch daily. cephALEXin 2021-0 Yes [id number] 500mg Take 1 Univers (KEFLEX) 7-01 capsule by ity o f 500 mg 00:00: mouth 2 [place] capsule 00 (two) Medical times Branch daily. cephALEXin 2021-0 Yes [id number] 500mg Take 1 Univers (KEFLEX) 7-01 capsule by ity o f 500 mg 00:00: mouth 2 [place] capsule 00 (two) Medical times Branch daily. cephALEXin 2021-0 Yes [id number] 500mg Take 1 Univers (KEFLEX) 7-01 capsule by ity o f 500 mg 00:00: mouth 2 [place] capsule 00 (two) Medical times Branch daily. cephALEXin 2021-0 Yes [id number] 500mg Take 1 Univers (KEFLEX) 7-01 capsule by ity o f 500 mg 00:00: mouth 2 [place] capsule 00 (two) Medical times Branch daily. cephALEXin 2021-0 Yes [id number] 500mg Take 1 Univers (KEFLEX) 7-01 capsule by ity o f 500 mg 00:00: mouth 2 [place] capsule 00 (two) Medical times Branch daily. cephALEXin 2021-0 Yes [id number] 500mg Take 1 Univers (KEFLEX) 7-01 capsule by ity o f 500 mg 00:00: mouth 2 [place] capsule 00 (two) Medical times Branch daily. cephALEXin 2021-0 Yes [id number] 500mg Take 1 Univers (KEFLEX) 7-01 capsule by ity o f 500 mg 00:00: mouth 2 [place] capsule 00 (two) Medical times Branch daily. cephALEXin 2021-0 Yes [id number] 500mg Take 1 Univers (KEFLEX) 7-01 capsule by ity o f 500 mg 00:00: mouth 2 [place] capsule 00 (two) Medical times Branch daily. cephALEXin 2021-0 Yes [id number] 500mg Take 1 Univers (KEFLEX) 7-01 capsule by ity o f 500 mg 00:00: mouth 2 [place] capsule 00 (two) Medical times Branch daily. cephALEXin 2021-0 Yes [id number] 500mg Take 1 Univers (KEFLEX) 7-01 capsule by ity o f 500 mg 00:00: mouth 2 [place] capsule 00 (two) Medical times Branch daily. cephALEXin 2021-0 Yes [id number] 500mg Take 1 Univers (KEFLEX) 7-01 capsule by ity o f 500 mg 00:00: mouth 2 [place] capsule 00 (two) Medical times Branch daily. cephALEXin 2021-0 Yes [id number] 500mg Take 1 Univers (KEFLEX) 7-01 capsule by ity o f 500 mg 00:00: mouth 2 [facility] (two) Medical times Branch daily. galantamine 2020-0 Yes [id number] 8mg Take 1 Univers 8 mg tablet 3-29 tablet by ity of 00:00: mouth 2 [place] (two) Medical times Branch daily. galantamine 2020-0 Yes [id number] 8mg Take 1 Univers 8 mg tablet 3-29 tablet by ity of 00:00: mouth 2 [place] (two) Medical times Branch daily. galantamine 2020-0 Yes [id number] 8mg Take 1 Univers 8 mg tablet 3-29 tablet by ity of 00:00: mouth 2 [place] (two) Medical times Branch daily. galantamine 2020-0 Yes [id number] 8mg Take 1 Univers 8 mg tablet 3-29 tablet by ity of 00:00: mouth 2 [place] (two) Medical times Branch daily. galantamine 2020-0 Yes [id number] 8mg Take 1 Univers 8 mg tablet 3-29 tablet by ity of 00:00: mouth 2 [place] (two) Medical times Branch daily. galantamine 2020-0 Yes [id number] 8mg Take 1 Univers 8 mg tablet 3-29 tablet by ity of 00:00: mouth 2 [place] (two) Medical times Branch daily. galantamine 2020-0 Yes [id number] 8mg Take 1 Univers 8 mg tablet 3-29 tablet by ity of 00:00: mouth 2 [place] (two) Medical times Branch daily. galantamine 2020-0 Yes [id number] 8mg Take 1 Univers 8 mg tablet 3-29 tablet by ity of 00:00: mouth 2 [place] (two) Medical times Branch daily. galantamine 2020-0 Yes [id number] 8mg Take 1 Univers 8 mg tablet 3-29 tablet by ity of 00:00: mouth 2 [place] (two) Medical times Branch daily. galantamine 2020-0 Yes [id number] 8mg Take 1 Univers 8 mg tablet 3-29 tablet by ity of 00:00: mouth 2 [place] (two) Medical times Branch daily. galantamine 2020-0 Yes [id number] 8mg Take 1 Univers 8 mg tablet 3-29 tablet by ity of 00:00: mouth [place] (two) Medical times Branch daily. galantamine 2020-0 Yes [id number] 8mg Take 1 Univers 8 mg tablet 3-29 tablet by ity of 00:00: mouth [place] (two) Medical times Branch daily. galantamine 2020-0 Yes [id number] 8mg Take 1 Univers 8 mg tablet 3-29 tablet by ity of 00:00: mouth [place] (two) Medical times Branch daily. galantamine 2020-0 Yes [id number] 8mg Take 1 Univers 8 mg tablet 3-29 tablet by ity of 00:00: mouth [place] (two) Medical times Branch daily. galantamine 2020-0 Yes [id number] 8mg Take 1 Univers 8 mg tablet 3-29 tablet by ity of 00:00: mouth [place] (two) Medical times Branch daily. galantamine 2020-0 Yes [id number] 8mg Take 1 Univers 8 mg tablet 3-29 tablet by ity of 00:00: mouth [place] (two) Medical times Branch daily. galantamine 2020-0 Yes [id number] 8mg Take 1 Univers 8 mg tablet 3-29 tablet by ity of 00:00: mouth [place] (two) Medical times Branch daily. galantamine 2020-0 Yes [id number] 8mg Take 1 Univers 8 mg tablet 3-29 tablet by ity of 00:00: mouth [place] (two) Medical times Branch daily. galantamine 2020-0 Yes [id number] 8mg Take 1 Univers 8 mg tablet 3-29 tablet by ity of 00:00: mouth [place] (two) Medical times Branch daily. galantamine 2020-0 2020- No [id number] 8mg Take 1 Univers 8 mg tablet 3-29 -03 tablet by it y of 00:00: 00:00 mouth 2 [place] 00 :00 (two) Medical times Branch daily. traZODone 2019- Yes [id number] 50mg Take 1 Uni vers 50 mg 2-11 tablet by ity of tablet 00:00: mouth at [place] [address] bedtime. Medical Branch traZODone 2019-09 Yes [id number] 50mg Take 1 Uni vers 50 mg 2-11 tablet by ity of tablet 00:00: mouth at [place] [address] bedtime. Medical Branch traZODone 2020-1 Yes [id number] 50mg Take 1 Uni vers 50 mg 2-11 tablet by ity of tablet 00:00: mouth at [place] [address] bedtime. Medical Branch traZODone 2019- Yes [id number] 50mg Take 1 Uni vers 50 mg 2-11 tablet by ity of tablet 00:00: mouth at [place] [address] bedtime. Medical Branch traZODone 2019- Yes [id number] 50mg Take 1 Uni vers 50 mg 2-11 tablet by ity of tablet 00:00: mouth at [place] [address] bedtime. Medical Branch traZODone 2019- Yes [id number] 50mg Take 1 Uni vers 50 mg 2-11 tablet by ity of tablet 00:00: mouth at [place] [address] bedtime. Medical Branch traZODone 2019- Yes [id number] 50mg Take 1 Uni vers 50 mg 2-11 tablet by ity of tablet 00:00: mouth at [place] [address] bedtime. Medical Branch traZODone 2019- Yes [id number] 50mg Take 1 Uni vers 50 mg 2-11 tablet by ity of tablet 00:00: mouth at [place] [address] bedtime. Medical Branch traZODone 2019- Yes [id number] 50mg Take 1 Uni vers 50 mg 2-11 tablet by ity of tablet 00:00: mouth at [place] [address] bedtime. Medical Branch traZODone 2019- Yes [id number] 50mg Take 1 Uni vers 50 mg 2-11 tablet by ity of tablet 00:00: mouth at [place] [address] bedtime. Medical Branch traZODone 2019- Yes [id number] 50mg Take 1 Uni vers 50 mg 2-11 tablet by ity of tablet 00:00: mouth at [place] [address] bedtime. Medical Branch traZODone 2019-1 Yes [id number] 50mg Take 1 Uni vers 50 mg 2-11 tablet by ity of tablet 00:00: mouth at [place] [address] bedtime. Medical Branch traZODone 2020- Yes [id number] 50mg Take 1 Uni vers 50 mg 2-11 tablet by ity of tablet 00:00: mouth at [place] [address] bedtime. Medical Branch traZODone 2020- Yes [id number] 50mg Take 1 Uni vers 50 mg 2-11 tablet by ity of tablet 00:00: mouth at [place] [address] bedtime. Medical Branch traZODone 2019-1 Yes [id number] 50mg Take 1 Uni vers 50 mg 2-11 tablet by ity of tablet 00:00: mouth at [place] [address] bedtime. Medical Branch traZODone 2020-1 Yes [id number] 50mg Take 1 Uni vers 50 mg 2-11 tablet by ity of tablet 00:00: mouth at [place] [address] bedtime. Medical Branch traZODone 2019- Yes [id number] 50mg Take 1 Uni vers 50 mg 2-11 tablet by ity of tablet 00:00: mouth at [place] [address] bedtime. Medical Branch traZODone 2019- Yes [id number] 50mg Take 1 Uni vers 50 mg 2-11 tablet by ity of tablet 00:00: mouth at [place] [address] bedtime. Medical Branch traZODone 2019- Yes [id number] 50mg Take 1 Uni vers 50 mg 2-11 tablet by ity of tablet 00:00: mouth at [place] [address] bedtime. Medical Branch traZODone 2019- Yes [id number] 50mg Take 1 Uni vers 50 mg 2-11 tablet by ity of tablet 00:00: mouth at [place] [address] bedtime. Medical Branch traZODone 2019- Yes [id number] 50mg Take 1 Uni vers 50 mg 2-11 tablet by ity of tablet 00:00: mouth at [place] [address] bedtime. Medical Branch traZODone 2019- Yes [id number] 50mg Take 1 Uni vers 50 mg 2-11 tablet by ity of tablet 00:00: mouth at [place] [address] bedtime. Medical Branch traZODone 2019- Yes [id number] 50mg Take 1 Uni vers 50 mg 2-11 tablet by ity of tablet 00:00: mouth at [place] [address] bedtime. Medical Branch traZODone 2019-1 Yes [id number] 50mg Take 1 Uni vers 50 mg 2-11 tablet by ity of tablet 00:00: mouth at [place] [address] bedtime. Medical Branch traZODone 2020-1 Yes [id number] 50mg Take 1 Uni vers 50 mg 2-11 tablet by ity of tablet 00:00: mouth at [place] [address] bedtime. Medical Branch traZODone 2020-1 Yes [id number] 50mg Take 1 Uni vers 50 mg 2-11 tablet by ity of tablet 00:00: mouth at [place] [address] bedtime. Medical Branch traZODone 2019-1 Yes [id number] 50mg Take 1 Uni vers 50 mg 2-11 tablet by ity of tablet 00:00: mouth at [place] [address] bedtime. Medical Branch traZODone 2019- Yes [id number] 50mg Take 1 Uni vers 50 mg 2-11 tablet by ity of tablet 00:00: mouth at [place] [address] bedtime. Medical Branch traZODone 2019- Yes [id number] 50mg Take 1 Uni vers 50 mg 2-11 tablet by ity of tablet 00:00: mouth at [place] [address] bedtime. Medical Branch traZODone 2019- Yes [id number] 50mg Take 1 Uni vers 50 mg 2-11 tablet by ity of tablet 00:00: mouth at [place] [address] bedtime. Medical Branch traZODone 2019- Yes [id number] 50mg Take 1 Uni vers 50 mg 2-11 tablet by ity of tablet 00:00: mouth at [place] [address] bedtime. Medical Branch traZODone 2019- Yes [id number] 50mg Take 1 Uni vers 50 mg 2-11 tablet by ity of tablet 00:00: mouth at [place] [address] bedtime. Medical Branch traZODone 2019- Yes [id number] 50mg Take 1 Uni vers 50 mg 2-11 tablet by ity of tablet 00:00: mouth at [place] [address] bedtime. Medical Branch galantamine 2019- Yes [id number] 8mg Take 1 Univers 8 mg tablet 1-16 tablet by ity of 00:00: mouth 2 [place] (two) Medical times Branch daily. galantamine 2019-09 Yes [id number] 8mg Take 1 Univers 8 mg tablet 1-16 tablet by ity of 00:00: mouth 2 [place] (two) Medical times Branch daily. galantamine 2019- Yes [id number] 8mg Take 1 Univers 8 mg tablet 1-16 tablet by ity of 00:00: mouth 2 [place] (two) Medical times Branch daily. galantamine 2019- Yes [id number] 8mg Take 1 Univers 8 mg tablet 1-16 tablet by ity of 00:00: mouth 2 [place] (two) Medical times Branch daily. galantamine 2019- Yes [id number] 8mg Take 1 Univers 8 mg tablet 1-16 tablet by ity of 00:00: mouth 2 [place] (two) Medical times Branch daily. galantamine 2019- Yes [id number] 8mg Take 1 Univers 8 mg tablet 1-16 tablet by ity of 00:00: mouth 2 (two) Medical times Branch daily. galantamine 2019-09 Yes [id number] 8mg Take 1 Univers 8 mg tablet 1-16 tablet by ity of 00:00: mouth 2 00 (two) Medical times Branch daily. galantamine 2019-09- No [id number] 8mg Take 1 Univers 8 mg tablet 10-04 tablet by it y of 00:00: 00:00 mouth 2 00 :00 (two) Medical times Branch daily. galantamine 2019-09- No [id number] 8mg Take 1 Univers 8 mg tablet 09-27-16 tablet by it y of 00:00: 00:00 mouth 2 [place] 00 :00 (two) Medical times Branch daily. galantamine 2019-09- No [id number] 8mg Take 1 Univers 8 mg tablet 09-27-16 tablet by it y of 00:00: 00:00 mouth 2 [place] 00 :00 (two) Medical times Branch daily. galantamine 2019-09- No [id number] 8mg Take 1 Univers 8 mg tablet 09-27-16 tablet by it y of 00:00: 00:00 mouth 2 [place] 00 :00 (two) Medical times Branch daily. galantamine 2019- Yes 4mg Take 1 Univ ers 4 mg tablet 0-16 tablet by ity of 00:00: mouth (two) Medical times Branch daily. galantamine 2019- Yes 4mg Take 1 Univ ers 4 mg tablet 0-16 tablet by ity of 00:00: mouth [place] (two) Medical times Branch daily. galantamine 2019- [...] tablet by ity of 00:00: mouth 2 [place] 00 (two) Medical times Branch daily. galantamine 2019- 2020- No 4mg Take 1 Uni vers 4 mg tablet 0-16 11-09 tablet by it y of 00:00: 00:00 mouth 2 [place] 00 :00 (two) Medical times Branch daily. galantamine 2019- 2020- No 4mg Take 1 Uni vers 4 mg tablet 0-16 11-09 tablet by it y of 00:00: 00:00 mouth 2 [place] 00 :00 (two) Medical times Branch daily. galantamine 2019- 2020- No 4mg Take 1 Uni vers 4 mg tablet 0-16 11-09 tablet by it y of 00:00: 00:00 mouth 2 [place] 00 :00 (two) Medical times Branch daily. galantamine 2019-1 Yes 4mg Take 1 Univ ers 4 mg tablet 0-06 tablet by ity of 00:00: mouth 2 [place] 00 (two) Medical times Branch daily. galantamine 2019- 2020- No 4mg Take 1 Uni vers 4 mg tablet 0-06 10-16 tablet by it y of 00:00: 00:00 mouth 2 [place] 00 :00 (two) Medical times Branch daily. galantamine 2019- 2020- No 4mg Take 1 Uni vers 4 mg tablet 0-06 10-16 tablet by it y of 00:00: 00:00 mouth 2 [place] 00 :00 (two) Medical times Branch daily. galantamine 2019- 2020- No 4mg Take 1 Uni vers 4 mg tablet 0-06 10-16 tablet by it y of 00:00: 00:00 mouth 2 [place] 00 :00 (two) Medical times Branch daily. galantamine 2019- 2020- No 4mg Take 1 Uni vers 4 mg tablet 0-06 10-16 tablet by it y of 00:00: 00:00 mouth 2 [place] 00 :00 (two) Medical times Branch daily. galantamine 2019- 2020- No 4mg Take 1 Uni vers 4 mg tablet 0-06 10-16 tablet by it y of 00:00: 00:00 mouth 2 [place] 00 :00 (two) Medical times Branch daily. galantamine 2019-1 Yes 4mg Take 1 Univ ers 4 mg tablet 0-05 tablet by ity of 00:00: mouth 2 [place] 00 (two) Medical times Branch daily. galantamine 2019-1 Yes 4mg Take 1 Univ ers 4 mg tablet 0-05 tablet by ity of 00:00: mouth 2 [place] (two) Medical times Branch daily. galantamine 2020-1 Yes 4mg Take 1 Univ ers 4 mg tablet 0-05 tablet by ity of 00:00: mouth 2 [place] (two) Medical times Branch daily. galantamine 2020- 2020- No 4mg Take 1 Uni vers 4 mg tablet 0-05 10-06 tablet by it y of 00:00: 00:00 mouth 2 [place] 00 :00 (two) Medical times Branch daily. metFORMIN 2020-0 Yes 500mg Take 500 Uni vers 500 mg 9-14 mg by ity of tablet 18:23: mouth [address] [place] [address] (two) Medical times Branch daily with meals. metFORMIN 2020-0 Yes 500mg Take 500 Uni vers 500 mg 9-14 mg by ity of tablet 18:23: mouth [address] [place] [address] (two) Medical times Branch daily with meals. metFORMIN 2020-0 Yes 500mg Take 500 Uni vers 500 mg 9-14 mg by ity of tablet 18:23: mouth [address] [place] [address] (two) Medical times Branch daily with meals. metFORMIN 2020-0 Yes 500mg Take 500 Uni vers 500 mg 9-14 mg by ity of tablet 18:23: mouth [address] [place] [address] (two) Medical times Branch daily with meals. metFORMIN 2020-0 Yes 500mg Take 500 Uni vers 500 mg 9-14 mg by ity of tablet 18:23: mouth [address] [place] [address] (two) Medical times Branch daily with meals. metFORMIN 2020-0 Yes 500mg Take 500 Uni vers 500 mg 9-14 mg by ity of tablet 18:23: mouth [address] [place] [address] (two) Medical times Branch daily with meals. metFORMIN 2020-0 Yes 500mg Take 500 Uni vers 500 mg 9-14 mg by ity of tablet 18:23: mouth [address] [place] [address] (two) Medical times Branch daily with meals. metFORMIN 2020-0 Yes 500mg Take 500 Uni vers 500 mg 9-14 mg by ity of tablet 18:23: mouth [address] [place] [address] (two) Medical times Branch daily with meals. metFORMIN 2020-0 Yes 500mg Take 500 Uni vers 500 mg 9-14 mg by ity of tablet 18:23: mouth [address] [place] [address] (two) Medical times Branch daily with meals. metFORMIN 2020-0 Yes 500mg Take 500 Uni vers 500 mg 9-14 mg by ity of tablet 18:23: mouth 2 [place] [address] (two) Medical times Branch daily with meals. metFORMIN 2020-0 Yes 500mg Take 500 Uni vers 500 mg 9-14 mg by ity of tablet 18:23: mouth 2 [place] [address] (two) Medical times Branch daily with meals. metFORMIN 2020-0 Yes 500mg Take 500 Uni vers 500 mg 9-14 mg by ity of tablet 18:23: mouth 2 [place] 19 (two) Medical times Branch daily with meals. metFORMIN 2020-0 Yes 500mg Take 500 Uni vers 500 mg 9-14 mg by ity of tablet 18:23: mouth 2 [place] 19 (two) Medical times Branch daily with meals. metFORMIN 2020-0 Yes 500mg Take 500 Uni vers 500 mg 9-14 mg by ity of tablet 18:23: mouth 2 [place] 19 (two) Medical times Branch daily with meals. metFORMIN 2020-0 Yes 500mg Take 500 Uni vers 500 mg 9-14 mg by ity of tablet 18:23: mouth 2 [place] [address] (two) Medical times Branch daily with meals. metFORMIN 2020-0 Yes 500mg Take 500 Uni vers 500 mg 9-14 mg by ity of tablet 18:23: mouth [address] [place] [address] (two) Medical times Branch daily with meals. metFORMIN 2020-0 Yes 500mg Take 500 Uni vers 500 mg 9-14 mg by ity of tablet 18:23: mouth 2 [place] [address] (two) Medical times Branch daily with meals. metFORMIN 2020-0 Yes 500mg Take 500 Uni vers 500 mg 9-14 mg by ity of tablet 18:23: mouth 2 [place] [address] (two) Medical times Branch daily with meals. metFORMIN 2020-0 Yes 500mg Take 500 Uni vers 500 mg 9-14 mg by ity of tablet 18:23: mouth 2 [place] [address] (two) Medical times Branch daily with meals. metFORMIN 2020-0 Yes 500mg Take 500 Uni vers 500 mg 9-14 mg by ity of tablet 18:23: mouth 2 [place] 19 (two) Medical times Branch daily with meals. metFORMIN 2020-0 Yes 500mg Take 500 Uni vers 500 mg 9-14 mg by ity of tablet 18:23: mouth 2 [place] 19 (two) Medical times Branch daily with meals. metFORMIN 2020-0 Yes 500mg Take 500 Uni vers 500 mg 9-14 mg by ity of tablet 18:23: mouth 2 [place] [address] (two) Medical times Branch daily with meals. metFORMIN 2020-0 Yes 500mg Take 500 Uni vers 500 mg 9-14 mg by ity of tablet 18:23: mouth 2 [place] [address] (two) Medical times Branch daily with meals. metFORMIN 2020-0 Yes 500mg Take 500 Uni vers 500 mg 9-14 mg by ity of tablet 18:23: mouth 2 [place] [address] (two) Medical times Branch daily with meals. metFORMIN 2020-0 Yes 500mg Take 500 Uni vers 500 mg 9-14 mg by ity of tablet 18:23: mouth 2 [place] [address] (two) Medical times Branch daily with meals. metFORMIN 2020-0 Yes 500mg Take 500 Uni vers 500 mg 9-14 mg by ity of tablet 18:23: mouth 2 [place] [address] (two) Medical times Branch daily with meals. metFORMIN 2020-0 Yes 500mg Take 500 Uni vers 500 mg 9-14 mg by ity of tablet 18:23: mouth 2 [place] [address] (two) Medical times Branch daily with meals. metFORMIN 2020-0 Yes 500mg Take 500 Uni vers 500 mg 9-14 mg by ity of tablet 18:23: mouth [address] [place] [address] (two) [facility] times Branch daily with meals. metFORMIN 2020-0 Yes 500mg Take 500 Uni vers 500 mg 9-14 mg by ity of tablet 18:23: mouth [address] [place] [address] (two) Medical times Branch daily with meals. metFORMIN 2020-0 Yes 500mg Take 500 [facility] vers 500 mg 9-14 mg by ity of tablet 18:23: mouth [address] [place] [address] (two) Medical times Branch daily with meals. metFORMIN 2020-0 Yes 500mg Take 500 [facility] vers 500 mg 9-14 mg by ity of tablet 18:23: mouth [address] [place] [address] (two) Medical times Branch daily with meals. metFORMIN 2020-0 Yes 500mg Take 500 [facility] vers 500 mg 9-14 mg by ity of tablet 18:23: mouth [address] [place] [address] (two) Medical times Branch daily with meals. metFORMIN 2020-0 Yes 500mg Take 500 [facility] vers 500 mg 9-14 mg by ity of tablet 18:23: mouth 2 [place] [address] (two) Medical times Branch daily with meals. metFORMIN 2020-0 Yes 500mg Take 500 [facility] vers 500 mg 9-14 mg by ity of tablet 18:23: mouth 2 [place] [address] (two) Medical times Branch daily with meals. metFORMIN 2020-0 Yes 500mg Take 500 [facility] vers 500 mg 9-14 mg by ity of tablet 18:23: mouth 2 [place] [address] (two) Medical times Branch daily with meals. metFORMIN 2020-0 Yes 500mg Take 500 [facility] vers 500 mg 9-14 mg by ity of tablet 18:23: mouth 2 [place] [address] (two) Medical times Branch daily with meals. metFORMIN 2020-0 Yes 500mg Take 500 Uni vers 500 mg 9-14 mg by ity of tablet 18:23: mouth 2 [place] (two) Medical times Branch daily with meals. metFORMIN 2020-0 Yes 500mg Take 500 Uni vers 500 mg 9-14 mg by ity of tablet 18:23: mouth 2 [place] 19 (two) Medical times Branch daily with meals. metFORMIN 2020-0 Yes 500mg Take 500 Uni vers 500 mg 9-14 mg by ity of tablet 18:23: mouth 2 [place] 19 (two) Medical times Branch daily with meals. metFORMIN 2020-0 Yes 500mg Take 500 Uni vers 500 mg 9-14 mg by ity of tablet 18:23: mouth 2 [place] [address] (two) Medical times Branch daily with meals. metFORMIN 2020-0 Yes 500mg Take 500 Uni vers 500 mg 9-14 mg by ity of tablet 18:23: mouth [address] [place] [address] (two) Medical times Branch daily with meals. metFORMIN 2020-0 Yes 500mg Take 500 [facility] vers 500 mg 9-14 mg by ity of tablet 18:23: mouth 2 [place] [address] (two) Medical times Branch daily with meals. metFORMIN 2020-0 Yes 500mg Take 500 [facility] vers 500 mg 9-14 mg by ity of tablet 18:23: mouth 2 [place] [address] (two) Medical times Branch daily with meals. metFORMIN 2020-0 Yes 500mg Take 500 [facility] vers 500 mg 9-14 mg by ity of tablet 18:23: mouth 2 [place] [address] (two) Medical times Branch daily with meals. metFORMIN 2020-0 Yes 500mg Take 500 Uni vers 500 mg 9-14 mg by ity of tablet 18:23: mouth 2 [place] (two) Medical times Branch daily with meals. metFORMIN 2020-0 Yes 500mg Take 500 [facility] vers 500 mg 9-14 mg by ity of tablet 18:23: mouth 2 [place] 19 (two) Medical times Branch daily with meals. metFORMIN 2020-0 Yes 500mg Take 500 Uni vers 500 mg 9-14 mg by ity of tablet 18:23: mouth 2 [place] [address] (two) Medical times Branch daily with meals. metFORMIN 2020-0 Yes 500mg Take 500 Uni vers 500 mg 9-14 mg by ity of tablet 18:23: mouth 2 [place] 19 (two) Medical times Branch daily with meals. metFORMIN 2020-0 Yes 500mg Take 500 Uni vers 500 mg 9-14 mg by ity of tablet 18:23: mouth 2 [place] 19 (two) Medical times Branch daily with meals. metFORMIN 2020-0 Yes 500mg Take 500 Uni vers 500 mg 9-14 mg by ity of tablet 13:23: mouth 2 [place] 19 (two) Medical times Branch daily with meals. metFORMIN 2020-0 Yes 500mg Take 500 Uni vers 500 mg 9-14 mg by ity of tablet 13:23: mouth 2 [place] 19 (two) Medical times Branch daily with meals. metFORMIN 2020-0 Yes 500mg Take 500 Uni vers 500 mg 9-14 mg by ity of tablet 13:23: mouth 2 [place] 19 (two) Medical times Branch daily with meals. metFORMIN 2020-0 Yes 500mg Take 500 Uni vers 500 mg 9-14 mg by ity of tablet 13:23: mouth 2 [place] 19 (two) Medical times Branch daily with meals. metFORMIN 2020-0 Yes 500mg Take 500 Uni vers 500 mg 9-14 mg by ity of tablet 13:23: mouth 2 [place] 19 (two) Medical times Branch daily with meals. metFORMIN 2020-0 Yes 500mg Take 500 Uni vers 500 mg 9-14 mg by ity of tablet 13:23: mouth 2 [place] 19 (two) Medical times Branch daily with meals. rivastigmin 2020-0 Yes [id number] 1{patch Apply 1 Univers e 4.6 mg/24 9-14 } Patch to ity of hr patch 00:00: skin [place] 00 daily. Medical Branch rivastigmin 2020-0 Yes [id number] 1{patch Apply 1 [facility] e 4.6 mg/24 9-14 } Patch to ity of hr patch 00:00: skin [place] 00 daily. Medical Branch rivastigmin 2020-0 Yes [id number] 1{patch Apply 1 [facility] e 4.6 mg/24 9-14 } Patch to ity of hr patch 00:00: skin [place] 00 daily. Medical Branch rivastigmin 2020-0 Yes [id number] 1{patch Apply 1 [facility] e 4.6 mg/24 9-14 } Patch to ity of hr patch 00:00: skin [place] 00 daily. Medical Branch rivastigmin 2020-0 Yes [id number] 1{patch Apply 1 [facility] e 4.6 mg/24 9-14 } Patch to ity of hr patch 00:00: [facility] 00 daily. Medical Branch rivastigmin 2020-0 Yes [id number] 1{patch Apply 1 [facility] e 4.6 mg/24 9-14 } Patch to ity of hr patch 00:00: [facility] 00 daily. Medical Branch rivastigmin 2020-0 Yes [id number] 1{patch Apply 1 [facility] e 4.6 mg/24 9-14 } Patch to ity of hr patch 00:00: [facility] 00 daily. Medical Branch rivastigmin 2020-0 Yes [id number] 1{patch Apply 1 [facility] e 4.6 mg/24 9-14 } Patch to ity of hr patch 00:00: [facility] 00 daily. Medical Branch rivastigmin 2019-0 2020- No [id number] 1{patch Apply 1 Univers e 4.6 mg/24 9-14 10-06 } Patch to ity of hr patch 00:00: 00:00 [facility] 00 :00 daily. Medical Branch rivastigmin 2019-0 2020- No [id number] 1{patch Apply 1 Univers e 4.6 mg/24 9-14 10-06 } Patch to ity of hr patch 00:00: 00:00 [facility] 00 :00 daily. Medical Branch clopidogreL 2020-0 Yes 75mg Take 75 mg Univers 75 mg 6-25 by mouth. ity of tablet 00:00: [place] [facility] glipiZIDE 2020-0 Yes 10mg Take 10 mg Un bridger 10 mg 6-25 by mouth. ity of tablet 00:00: Medical Branch losartan 50 2020-0 Yes Univer s mg tablet 6-25 ity of 00:00: [place] 00 Medical Branch metoprolol 2020-0 Yes Univers tartrate 50 6-25 ity of mg tablet 00:00: [place] [facility] pravastatin 2020-0 Yes 40mg Take 40 mg [facility] 40 mg 6-25 by mouth. ity of tablet 00:00: Medical Branch clopidogreL 2020-0 Yes 75mg Take 75 mg [facility] 75 mg 6-25 by mouth. ity of tablet 00:00: [place] [facility] glipiZIDE 2020-0 Yes 10mg Take 10 mg Un bridger 10 mg 6-25 by mouth. ity of tablet 00:00: [place] [facility] losartan 50 2020-0 Yes Univer s mg tablet 6-25 ity of 00:00: [place] [facility] metoprolol 2020-0 Yes Univers tartrate 50 6-25 ity of mg tablet 00:00: [place] [facility] pravastatin 2020-0 Yes 40mg Take 40 mg Univers 40 mg 6-25 by mouth. ity of tablet 00:00: [place] [facility] Branch clopidogreL 2020-0 Yes 75mg Take 75 mg Univers 75 mg 6-25 by mouth. ity of tablet 00:00: [place] [facility] Branch glipiZIDE 2020-0 Yes 10mg Take 10 mg Un bridger 10 mg 6-25 by mouth. ity of tablet 00:00: [place] [facility] Branch losartan 50 2020-0 Yes Univer s mg tablet 6-25 ity of 00:00: [place] [facility] metoprolol 2020-0 Yes Univers tartrate 50 6-25 ity of mg tablet 00:00: [address] pravastatin 2020-0 Yes 40mg Take 40 mg Univers 40 mg 6-25 by mouth. ity of tablet 00:00: [address] clopidogreL 2020-0 Yes 75mg Take 75 mg Univers 75 mg 6-25 by mouth. ity of tablet 00:00: [place] [facility] glipiZIDE 2020-0 Yes 10mg Take 10 mg Un bridger 10 mg 6-25 by mouth. ity of tablet 00:00: [address] losartan 50 2020-0 Yes Univer s mg tablet 6-25 ity of 00:00: [address] metoprolol 2020-0 Yes Univers tartrate 50 6-25 ity of mg tablet 00:00: [address] pravastatin 2020-0 Yes 40mg Take 40 mg [facility] 40 mg 6-25 by mouth. ity of tablet 00:00: [address] Branch clopidogreL 2020-0 Yes 75mg Take 75 mg Univers 75 mg 6-25 by mouth. ity of tablet 00:00: [address] glipiZIDE 2020-0 Yes 10mg Take 10 mg Un bridger 10 mg 6-25 by mouth. ity of tablet 00:00: [address] Branch losartan 50 2020-0 Yes Univer s mg tablet 6-25 ity of 00:00: [place] 00 Medical Branch metoprolol 2020-0 Yes Univers tartrate 50 6-25 ity of mg tablet 00:00: [place] [facility] pravastatin 2020-0 Yes 40mg Take 40 mg [facility] 40 mg 6-25 by mouth. ity of tablet 00:00: [place] [facility] clopidogreL 2020-0 Yes 75mg Take 75 mg [facility] 75 mg 6-25 by mouth. ity of tablet 00:00: [place] [facility] glipiZIDE 2020-0 Yes 10mg Take 10 mg Un bridger 10 mg 6-25 by mouth. ity of tablet 00:00: [place] [facility] losartan 50 2020-0 Yes Univer s mg tablet 6-25 ity of 00:00: [place] [address] Medical Branch metoprolol 2020-0 Yes Univers tartrate 50 6-25 ity of mg tablet 00:00: [address] Branch pravastatin 2020-0 Yes 40mg Take 40 mg Univers 40 mg 6-25 by mouth. ity of tablet 00:00: [place] [facility] clopidogreL 2020-0 Yes 75mg Take 75 mg Univers 75 mg 6-25 by mouth. ity of tablet 00:00: [place] [address] Medical Branch glipiZIDE 2020-0 Yes 10mg Take 10 mg Un bridger 10 mg 6-25 by mouth. ity of tablet 00:00: [place] [address] Medical Branch losartan 50 2020-0 Yes Univer s mg tablet 6-25 ity of 00:00: [place] [address] Medical Branch metoprolol 2020-0 Yes Univers tartrate 50 6-25 ity of mg tablet 00:00: [place] [address] Medical Branch pravastatin 2020-0 Yes 40mg Take 40 mg Univers 40 mg 6-25 by mouth. ity of tablet 00:00: [place] [address] Medical Branch clopidogreL 2020-0 Yes 75mg Take 75 mg Univers 75 mg 6-25 by mouth. ity of tablet 00:00: [place] [address] Medical Branch glipiZIDE 2020-0 Yes 10mg Take 10 mg Un bridger 10 mg 6-25 by mouth. ity of tablet 00:00: [place] [address] Medical Branch losartan 50 2020-0 Yes Univer s mg tablet 6-25 ity of 00:00: [place] [address] Medical Branch metoprolol 2020-0 Yes Univers tartrate 50 6-25 ity of mg tablet 00:00: [place] [address] Medical Branch pravastatin 2020-0 Yes 40mg Take 40 mg Univers 40 mg 6-25 by mouth. ity of tablet 00:00: [place] [facility] Branch clopidogreL 2020-0 Yes 75mg Take 75 mg Univers 75 mg 6-25 by mouth. ity of tablet 00:00: [place] [facility] glipiZIDE 2020-0 Yes 10mg Take 10 mg Un bridger 10 mg 6-25 by mouth. ity of tablet 00:00: [place] [facility] Branch losartan 50 2020-0 Yes Univer s mg tablet 6-25 ity of 00:00: [place] [facility] metoprolol 2020-0 Yes Univers tartrate 50 6-25 ity of mg tablet 00:00: [address] pravastatin 2020-0 Yes 40mg Take 40 mg Univers 40 mg 6-25 by mouth. ity of tablet 00:00: [address] Branch clopidogreL 2020-0 Yes 75mg Take 75 mg Univers 75 mg 6-25 by mouth. ity of tablet 00:00: [place] [facility] glipiZIDE 2020-0 Yes 10mg Take 10 mg Un bridger 10 mg 6-25 by mouth. ity of tablet 00:00: [address] Branch losartan 50 2020-0 Yes Univer s mg tablet 6-25 ity of 00:00: [address] metoprolol 2020-0 Yes Univers tartrate 50 6-25 ity of mg tablet 00:00: [address] pravastatin 2020-0 Yes 40mg Take 40 mg Univers 40 mg 6-25 by mouth. ity of tablet 00:00: [address] clopidogreL 2020-0 Yes 75mg Take 75 mg Univers 75 mg 6-25 by mouth. ity of tablet 00:00: [address] Branch glipiZIDE 2020-0 Yes 10mg Take 10 mg Un bridger 10 mg 6-25 by mouth. ity of tablet 00:00: [address] Branch losartan 50 2020-0 Yes Univer s mg tablet 6-25 ity of 00:00: [address] metoprolol 2020-0 Yes Univers tartrate 50 6-25 ity of mg tablet 00:00: [address] pravastatin 2020-0 Yes 40mg Take 40 mg Univers 40 mg 6-25 by mouth. ity of tablet 00:00: [address] Branch clopidogreL 2020-0 Yes 75mg Take 75 mg Univers 75 mg 6-25 by mouth. ity of tablet 00:00: [address] Branch glipiZIDE 2020-0 Yes 10mg Take 10 mg Un bridger 10 mg 6-25 by mouth. ity of tablet 00:00: [place] [facility] losartan 50 2020-0 Yes Univer s mg tablet 6-25 ity of 00:00: [place] [facility] metoprolol 2020-0 Yes Univers tartrate 50 6-25 ity of mg tablet 00:00: [place] [facility] Branch pravastatin 2020-0 Yes 40mg Take 40 mg Univers 40 mg 6-25 by mouth. ity of tablet 00:00: [place] [facility] Branch clopidogreL 2020-0 Yes 75mg Take 75 mg Univers 75 mg 6-25 by mouth. ity of tablet 00:00: [address] Branch glipiZIDE 2020-0 Yes 10mg Take 10 mg Un bridger 10 mg 6-25 by mouth. ity of tablet 00:00: [place] [facility] losartan 50 2020-0 Yes Univer s mg tablet 6-25 ity of 00:00: [address] metoprolol 2020-0 Yes Univers tartrate 50 6-25 ity of mg tablet 00:00: [address] pravastatin 2020-0 Yes 40mg Take 40 mg Univers 40 mg 6-25 by mouth. ity of tablet 00:00: [address] clopidogreL 2020-0 Yes 75mg Take 75 mg Univers 75 mg 6-25 by mouth. ity of tablet 00:00: [address] Branch glipiZIDE 2020-0 Yes 10mg Take 10 mg Un bridger 10 mg 6-25 by mouth. ity of tablet 00:00: [address] Branch losartan 50 2020-0 Yes Univer s mg tablet 6-25 ity of 00:00: [address] Branch metoprolol 2020-0 Yes Univers tartrate 50 6-25 ity of mg tablet 00:00: [address] pravastatin 2020-0 Yes 40mg Take 40 mg Univers 40 mg 6-25 by mouth. ity of tablet 00:00: [address] Branch clopidogreL 2020-0 Yes 75mg Take 75 mg Univers 75 mg 6-25 by mouth. ity of tablet 00:00: [place] [address] Medical Branch glipiZIDE 2020-0 Yes 10mg Take 10 mg Un bridger 10 mg 6-25 by mouth. ity of tablet 00:00: [address] Branch losartan 50 2020-0 Yes Univer s mg tablet 6-25 ity of 00:00: [place] [address] Medical Branch metoprolol 2020-0 Yes Univers tartrate 50 6-25 ity of mg tablet 00:00: [place] [facility] pravastatin 2020-0 Yes 40mg Take 40 mg Univers 40 mg 6-25 by mouth. ity of tablet 00:00: [place] [facility] clopidogreL 2020-0 Yes 75mg Take 75 mg Univers 75 mg 6-25 by mouth. ity of tablet 00:00: [place] [facility] glipiZIDE 2020-0 Yes 10mg Take 10 mg Un bridger 10 mg 6-25 by mouth. ity of tablet 00:00: [place] [facility] Branch losartan 50 2020-0 Yes Univer s mg tablet 6-25 ity of 00:00: [place] [facility] metoprolol 2020-0 Yes Univers tartrate 50 6-25 ity of mg tablet 00:00: [address] pravastatin 2020-0 Yes 40mg Take 40 mg Univers 40 mg 6-25 by mouth. ity of tablet 00:00: [address] clopidogreL 2020-0 Yes 75mg Take 75 mg Univers 75 mg 6-25 by mouth. ity of tablet 00:00: [place] [facility] Branch glipiZIDE 2020-0 Yes 10mg Take 10 mg Un bridger 10 mg 6-25 by mouth. ity of tablet 00:00: [place] [facility] Branch losartan 50 2020-0 Yes Univer s mg tablet 6-25 ity of 00:00: [place] [facility] metoprolol 2020-0 Yes Univers tartrate 50 6-25 ity of mg tablet 00:00: [address] pravastatin 2020-0 Yes 40mg Take 40 mg Univers 40 mg 6-25 by mouth. ity of tablet 00:00: [place] [facility] Branch clopidogreL 2020-0 Yes 75mg Take 75 mg Univers 75 mg 6-25 by mouth. ity of tablet 00:00: [address] Branch glipiZIDE 2020-0 Yes 10mg Take 10 mg Un bridger 10 mg 6-25 by mouth. ity of tablet 00:00: [address] Branch losartan 50 2020-0 Yes Univer s mg tablet 6-25 ity of 00:00: [place] [address] Medical Branch metoprolol 2020-0 Yes Univers tartrate 50 6-25 ity of mg tablet 00:00: [address] pravastatin 2020-0 Yes 40mg Take 40 mg Univers 40 mg 6-25 by mouth. ity of tablet 00:00: [place] [facility] clopidogreL 2020-0 Yes 75mg Take 75 mg Univers 75 mg 6-25 by mouth. ity of tablet 00:00: [place] [facility] glipiZIDE 2020-0 Yes 10mg Take 10 mg Un bridger 10 mg 6-25 by mouth. ity of tablet 00:00: [place] [facility] losartan 50 2020-0 Yes Univer s mg tablet 6-25 ity of 00:00: [place] [facility] metoprolol 2020-0 Yes Univers tartrate 50 6-25 ity of mg tablet 00:00: [address] Branch pravastatin 2020-0 Yes 40mg Take 40 mg Univers 40 mg 6-25 by mouth. ity of tablet 00:00: [place] [address] Medical Branch clopidogreL 2020-0 Yes 75mg Take 75 mg Univers 75 mg 6-25 by mouth. ity of tablet 00:00: [address] Branch glipiZIDE 2020-0 Yes 10mg Take 10 mg Un bridger 10 mg 6-25 by mouth. ity of tablet 00:00: [address] Branch losartan 50 2020-0 Yes Univer s mg tablet 6-25 ity of 00:00: [address] Branch metoprolol 2020-0 Yes Univers tartrate 50 6-25 ity of mg tablet 00:00: [address] pravastatin 2020-0 Yes 40mg Take 40 mg Univers 40 mg 6-25 by mouth. ity of tablet 00:00: [address] Branch clopidogreL 2020-0 Yes 75mg Take 75 mg Univers 75 mg 6-25 by mouth. ity of tablet 00:00: [place] [facility] glipiZIDE 2020-0 Yes 10mg Take 10 mg Un bridger 10 mg 6-25 by mouth. ity of tablet 00:00: [place] [address] Medical Branch losartan 50 2020-0 Yes Univer s mg tablet 6-25 ity of 00:00: [place] [address] Medical Branch metoprolol 2020-0 Yes Univers tartrate 50 6-25 ity of mg tablet 00:00: [address] Branch pravastatin 2020-0 Yes 40mg Take 40 mg Univers 40 mg 6-25 by mouth. ity of tablet 00:00: [place] [address] Medical Branch clopidogreL 2020-0 Yes 75mg Take 75 mg Univers 75 mg 6-25 by mouth. ity of tablet 00:00: [place] 00 Medical Branch glipiZIDE 2020-0 Yes 10mg Take 10 mg Un bridger 10 mg 6-25 by mouth. ity of tablet 00:00: [place] [facility] losartan 50 2020-0 Yes Univer s mg tablet 6-25 ity of 00:00: [place] [facility] metoprolol 2020-0 Yes Univers tartrate 50 6-25 ity of mg tablet 00:00: [place] [facility] Branch pravastatin 2020-0 Yes 40mg Take 40 mg Univers 40 mg 6-25 by mouth. ity of tablet 00:00: [place] [facility] clopidogreL 2020-0 Yes 75mg Take 75 mg Univers 75 mg 6-25 by mouth. ity of tablet 00:00: [place] [facility] glipiZIDE 2020-0 Yes 10mg Take 10 mg Un bridger 10 mg 6-25 by mouth. ity of tablet 00:00: [place] [facility] losartan 50 2020-0 Yes Univer s mg tablet 6-25 ity of 00:00: [address] metoprolol 2020-0 Yes Univers tartrate 50 6-25 ity of mg tablet 00:00: [address] Branch pravastatin 2020-0 Yes 40mg Take 40 mg Univers 40 mg 6-25 by mouth. ity of tablet 00:00: [address] Branch clopidogreL 2020-0 Yes 75mg Take 75 mg Univers 75 mg 6-25 by mouth. ity of tablet 00:00: [address] Branch glipiZIDE 2020-0 Yes 10mg Take 10 mg Un bridger 10 mg 6-25 by mouth. ity of tablet 00:00: [place] [address] Medical Branch losartan 50 2020-0 Yes Univer s mg tablet 6-25 ity of 00:00: [place] [address] Medical Branch metoprolol 2020-0 Yes Univers tartrate 50 6-25 ity of mg tablet 00:00: [place] [address] Medical Branch pravastatin 2020-0 Yes 40mg Take 40 mg Univers 40 mg 6-25 by mouth. ity of tablet 00:00: [place] [address] Medical Branch clopidogreL 2020-0 Yes 75mg Take 75 mg Univers 75 mg 6-25 by mouth. ity of tablet 00:00: [address] Branch glipiZIDE 2020-0 Yes 10mg Take 10 mg Un bridger 10 mg 6-25 by mouth. ity of tablet 00:00: [place] [address] Medical Branch losartan 50 2020-0 Yes Univer s mg tablet 6-25 ity of 00:00: [place] [facility] metoprolol 2020-0 Yes Univers tartrate 50 6-25 ity of mg tablet 00:00: [place] [facility] pravastatin 2020-0 Yes 40mg Take 40 mg Univers 40 mg 6-25 by mouth. ity of tablet 00:00: [place] [facility] Branch clopidogreL 2020-0 Yes 75mg Take 75 mg Univers 75 mg 6-25 by mouth. ity of tablet 00:00: [place] [facility] glipiZIDE 2020-0 Yes 10mg Take 10 mg Un bridger 10 mg 6-25 by mouth. ity of tablet 00:00: [place] [address] Medical Branch losartan 50 2020-0 Yes Univer s mg tablet 6-25 ity of 00:00: [place] [facility] Branch metoprolol 2020-0 Yes Univers tartrate 50 6-25 ity of mg tablet 00:00: [address] pravastatin 2020-0 Yes 40mg Take 40 mg Univers 40 mg 6-25 by mouth. ity of tablet 00:00: [address] Branch clopidogreL 2020-0 Yes 75mg Take 75 mg Univers 75 mg 6-25 by mouth. ity of tablet 00:00: [address] Branch glipiZIDE 2020-0 Yes 10mg Take 10 mg Un bridger 10 mg 6-25 by mouth. ity of tablet 00:00: [place] [address] Medical Branch losartan 50 2020-0 Yes Univer s mg tablet 6-25 ity of 00:00: [place] [facility] metoprolol 2020-0 Yes Univers tartrate 50 6-25 ity of mg tablet 00:00: [address] pravastatin 2020-0 Yes 40mg Take 40 mg Univers 40 mg 6-25 by mouth. ity of tablet 00:00: [place] [address] Medical Branch clopidogreL 2020-0 Yes 75mg Take 75 mg Univers 75 mg 6-25 by mouth. ity of tablet 00:00: [address] Branch glipiZIDE 2020-0 Yes 10mg Take 10 mg Un bridger 10 mg 6-25 by mouth. ity of tablet 00:00: [place] [address] Medical Branch losartan 50 2020-0 Yes Univer s mg tablet 6-25 ity of 00:00: [place] [address] Medical Branch metoprolol 2020-0 Yes Univers tartrate 50 6-25 ity of mg tablet 00:00: [place] 00 Medical Branch pravastatin 2020-0 Yes 40mg Take 40 mg [facility] 40 mg 6-25 by mouth. ity of tablet 00:00: [place] [facility] clopidogreL 2020-0 Yes 75mg Take 75 mg Univers 75 mg 6-25 by mouth. ity of tablet 00:00: [place] [facility] glipiZIDE 2020-0 Yes 10mg Take 10 mg Un bridger 10 mg 6-25 by mouth. ity of tablet 00:00: [place] [facility] losartan 50 2020-0 Yes Univer s mg tablet 6-25 ity of 00:00: [place] [facility] metoprolol 2020-0 Yes Univers tartrate 50 6-25 ity of mg tablet 00:00: [place] [facility] pravastatin 2020-0 Yes 40mg Take 40 mg Univers 40 mg 6-25 by mouth. ity of tablet 00:00: [place] [facility] clopidogreL 2020-0 Yes 75mg Take 75 mg Univers 75 mg 6-25 by mouth. ity of tablet 00:00: [place] [facility] Branch glipiZIDE 2020-0 Yes 10mg Take 10 mg Un bridger 10 mg 6-25 by mouth. ity of tablet 00:00: [place] [facility] Branch losartan 50 2020-0 Yes Univer s mg tablet 6-25 ity of 00:00: [address] metoprolol 2020-0 Yes Univers tartrate 50 6-25 ity of mg tablet 00:00: [address] pravastatin 2020-0 Yes 40mg Take 40 mg Univers 40 mg 6-25 by mouth. ity of tablet 00:00: [place] [facility] Branch clopidogreL 2020-0 Yes 75mg Take 75 mg Univers 75 mg 6-25 by mouth. ity of tablet 00:00: [address] Branch glipiZIDE 2020-0 Yes 10mg Take 10 mg Un bridger 10 mg 6-25 by mouth. ity of tablet 00:00: [place] [address] Medical Branch losartan 50 2020-0 Yes Univer s mg tablet 6-25 ity of 00:00: [place] [address] Medical Branch metoprolol 2020-0 Yes Univers tartrate 50 6-25 ity of mg tablet 00:00: [address] pravastatin 2020-0 Yes 40mg Take 40 mg Univers 40 mg 6-25 by mouth. ity of tablet 00:00: [place] [address] Medical Branch clopidogreL 2020-0 Yes 75mg Take 75 mg Univers 75 mg 6-25 by mouth. ity of tablet 00:00: [place] [facility] glipiZIDE 2020-0 Yes 10mg Take 10 mg Un bridger 10 mg 6-25 by mouth. ity of tablet 00:00: [place] [facility] Branch losartan 50 2020-0 Yes Univer s mg tablet 6-25 ity of 00:00: [place] [facility] metoprolol 2020-0 Yes Univers tartrate 50 6-25 ity of mg tablet 00:00: [place] [facility] pravastatin 2020-0 Yes 40mg Take 40 mg Univers 40 mg 6-25 by mouth. ity of tablet 00:00: [place] [facility] clopidogreL 2020-0 Yes 75mg Take 75 mg Univers 75 mg 6-25 by mouth. ity of tablet 00:00: [place] [facility] glipiZIDE 2020-0 Yes 10mg Take 10 mg Un bridger 10 mg 6-25 by mouth. ity of tablet 00:00: [place] [facility] losartan 50 2020-0 Yes Univer s mg tablet 6-25 ity of 00:00: [place] [facility] metoprolol 2020-0 Yes Univers tartrate 50 6-25 ity of mg tablet 00:00: [address] pravastatin 2020-0 Yes 40mg Take 40 mg Univers 40 mg 6-25 by mouth. ity of tablet 00:00: [address] clopidogreL 2020-0 Yes 75mg Take 75 mg Univers 75 mg 6-25 by mouth. ity of tablet 00:00: [place] [facility] glipiZIDE 2020-0 Yes 10mg Take 10 mg Un bridger 10 mg 6-25 by mouth. ity of tablet 00:00: [place] [facility] losartan 50 2020-0 Yes Univer s mg tablet 6-25 ity of 00:00: [place] [facility] metoprolol 2020-0 Yes Univers tartrate 50 6-25 ity of mg tablet 00:00: [address] pravastatin 2020-0 Yes 40mg Take 40 mg Univers 40 mg 6-25 by mouth. ity of tablet 00:00: [address] clopidogreL 2020-0 Yes 75mg Take 75 mg Univers 75 mg 6-25 by mouth. ity of tablet 00:00: [address] glipiZIDE 2020-0 Yes 10mg Take 10 mg Un bridger 10 mg 6-25 by mouth. ity of tablet 00:00: [place] [facility] losartan 50 2020-0 Yes Univer s mg tablet 6-25 ity of 00:00: [place] [facility] metoprolol 2020-0 Yes Univers tartrate 50 6-25 ity of mg tablet 00:00: [place] [facility] pravastatin 2020-0 Yes 40mg Take 40 mg Univers 40 mg 6-25 by mouth. ity of tablet 00:00: [place] [facility] clopidogreL 2020-0 Yes 75mg Take 75 mg Univers 75 mg 6-25 by mouth. ity of tablet 00:00: [place] [facility] glipiZIDE 2020-0 Yes 10mg Take 10 mg Un bridger 10 mg 6-25 by mouth. ity of tablet 00:00: [place] [facility] losartan 50 2020-0 Yes Univer s mg tablet 6-25 ity of 00:00: [place] [facility] metoprolol 2020-0 Yes Univers tartrate 50 6-25 ity of mg tablet 00:00: [place] [address] [facility] pravastatin 2020-0 Yes 40mg Take 40 mg Univers 40 mg 6-25 by mouth. ity of tablet 00:00: [place] [address] [facility] clopidogreL 2020-0 Yes 75mg Take 75 mg Univers 75 mg 6-25 by mouth. ity of tablet 00:00: [place] [facility] glipiZIDE 2020-0 Yes 10mg Take 10 mg Un bridger 10 mg 6-25 by mouth. ity of tablet 00:00: [place] [facility] losartan 50 2020-0 Yes Univer s mg tablet 6-25 ity of 00:00: [place] [facility] metoprolol 2020-0 Yes Univers tartrate 50 6-25 ity of mg tablet 00:00: [place] [address] [facility] pravastatin 2020-0 Yes 40mg Take 40 mg Univers 40 mg 6-25 by mouth. ity of tablet 00:00: [place] [address] [facility] clopidogreL 2020-0 Yes 75mg Take 75 mg Univers 75 mg 6-25 by mouth. ity of tablet 00:00: [place] [address] [facility] glipiZIDE 2020-0 Yes 10mg Take 10 mg Un bridger 10 mg 6-25 by mouth. ity of tablet 00:00: [place] [address] [facility] losartan 50 2020-0 Yes Univer s mg tablet 6-25 ity of 00:00: [place] [address] [facility] metoprolol 2020-0 Yes Univers tartrate 50 6-25 ity of mg tablet 00:00: [place] [address] [facility] pravastatin 2020-0 Yes 40mg Take 40 mg Univers 40 mg 6-25 by mouth. ity of tablet 00:00: [place] [facility] clopidogreL 2020-0 Yes 75mg Take 75 mg Univers 75 mg 6-25 by mouth. ity of tablet 00:00: [place] [facility] glipiZIDE 2020-0 Yes 10mg Take 10 mg Un bridger 10 mg 6-25 by mouth. ity of tablet 00:00: [address] Branch losartan 50 2020-0 Yes Univer s mg tablet 6-25 ity of 00:00: [place] [facility] metoprolol 2020-0 Yes Univers tartrate 50 6-25 ity of mg tablet 00:00: [address] pravastatin 2020-0 Yes 40mg Take 40 mg Univers 40 mg 6-25 by mouth. ity of tablet 00:00: [address] clopidogreL 2020-0 Yes 75mg Take 75 mg Univers 75 mg 6-25 by mouth. ity of tablet 00:00: [address] glipiZIDE 2020-0 Yes 10mg Take 10 mg Un bridger 10 mg 6-25 by mouth. ity of tablet 00:00: [address] losartan 50 2020-0 Yes Univer s mg tablet 6-25 ity of 00:00: [address] metoprolol 2020-0 Yes Univers tartrate 50 6-25 ity of mg tablet 00:00: [address] pravastatin 2020-0 Yes 40mg Take 40 mg Univers 40 mg 6-25 by mouth. ity of tablet 00:00: [address] clopidogreL 2020-0 Yes 75mg Take 75 mg Univers 75 mg 6-25 by mouth. ity of tablet 00:00: [address] glipiZIDE 2020-0 Yes 10mg Take 10 mg Un bridger 10 mg 6-25 by mouth. ity of tablet 00:00: [address] losartan 50 2020-0 Yes Univer s mg tablet 6-25 ity of 00:00: [address] metoprolol 2020-0 Yes Univers tartrate 50 6-25 ity of mg tablet 00:00: [address] pravastatin 2020-0 Yes 40mg Take 40 mg Univers 40 mg 6-25 by mouth. ity of tablet 00:00: [address] clopidogreL 2020-0 Yes 75mg Take 75 mg Univers 75 mg 6-25 by mouth. ity of tablet 00:00: [place] [facility] glipiZIDE 2020-0 Yes 10mg Take 10 mg Un bridger 10 mg 6-25 by mouth. ity of tablet 00:00: [place] [facility] losartan 50 2020-0 Yes Univer s mg tablet 6-25 ity of 00:00: [place] [facility] metoprolol 2020-0 Yes Univers tartrate 50 6-25 ity of mg tablet 00:00: [place] [facility] pravastatin 2020-0 Yes 40mg Take 40 mg Univers 40 mg 6-25 by mouth. ity of tablet 00:00: [place] [address] [facility] clopidogreL 2020-0 Yes 75mg Take 75 mg Univers 75 mg 6-25 by mouth. ity of tablet 00:00: [place] [facility] glipiZIDE 2020-0 Yes 10mg Take 10 mg Un bridger 10 mg 6-25 by mouth. ity of tablet 00:00: [place] [facility] losartan 50 2020-0 Yes Univer s mg tablet 6-25 ity of 00:00: [place] [address] [facility] metoprolol 2020-0 Yes Univers tartrate 50 6-25 ity of mg tablet 00:00: [address] pravastatin 2020-0 Yes 40mg Take 40 mg Univers 40 mg 6-25 by mouth. ity of tablet 00:00: [address] Branch clopidogreL 2020-0 Yes 75mg Take 75 mg Univers 75 mg 6-25 by mouth. ity of tablet 00:00: [place] [address] [facility] glipiZIDE 2020-0 Yes 10mg Take 10 mg Un bridger 10 mg 6-25 by mouth. ity of tablet 00:00: [place] [address] [facility] losartan 50 2020-0 Yes Univer s mg tablet 6-25 ity of 00:00: [place] [address] [facility] metoprolol 2020-0 Yes Univers tartrate 50 6-25 ity of mg tablet 00:00: [place] [address] [facility] pravastatin 2020-0 Yes 40mg Take 40 mg Univers 40 mg 6-25 by mouth. ity of tablet 00:00: [place] [address] [facility] clopidogreL 2020-0 Yes 75mg Take 75 mg Univers 75 mg 6-25 by mouth. ity of tablet 00:00: [place] [address] [facility] glipiZIDE 2020-0 Yes 10mg Take 10 mg Un bridger 10 mg 6-25 by mouth. ity of tablet 00:00: [place] [facility] losartan 50 2020-0 Yes Univer s mg tablet 6-25 ity of 00:00: [place] [facility] metoprolol 2020-0 Yes Univers tartrate 50 6-25 ity of mg tablet 00:00: [place] [facility] pravastatin 2020-0 Yes 40mg Take 40 mg Univers 40 mg 6-25 by mouth. ity of tablet 00:00: [place] [facility] clopidogreL 2020-0 Yes 75mg Take 75 mg Univers 75 mg 6-25 by mouth. ity of tablet 00:00: [place] [facility] glipiZIDE 2020-0 Yes 10mg Take 10 mg Un bridger 10 mg 6-25 by mouth. ity of tablet 00:00: [place] [facility] losartan 50 2020-0 Yes Univer s mg tablet 6-25 ity of 00:00: [place] [facility] metoprolol 2020-0 Yes Univers tartrate 50 6-25 ity of mg tablet 00:00: [address] pravastatin 2020-0 Yes 40mg Take 40 mg Univers 40 mg 6-25 by mouth. ity of tablet 00:00: [address] Branch clopidogreL 2020-0 Yes 75mg Take 75 mg Univers 75 mg 6-25 by mouth. ity of tablet 00:00: [address] glipiZIDE 2020-0 Yes 10mg Take 10 mg Un bridger 10 mg 6-25 by mouth. ity of tablet 00:00: [address] Branch losartan 50 2020-0 Yes Univer s mg tablet 6-25 ity of 00:00: [address] metoprolol 2020-0 Yes Univers tartrate 50 6-25 ity of mg tablet 00:00: [address] pravastatin 2020-0 Yes 40mg Take 40 mg Univers 40 mg 6-25 by mouth. ity of tablet 00:00: [place] [address] [facility] clopidogreL 2020-0 Yes 75mg Take 75 mg Univers 75 mg 6-25 by mouth. ity of tablet 00:00: [address] Branch glipiZIDE 2020-0 Yes 10mg Take 10 mg Un bridger 10 mg 6-25 by mouth. ity of tablet 00:00: [address] Branch losartan 50 2020-0 Yes Univer s mg tablet 6-25 ity of 00:00: [address] Branch metoprolol 2020-0 Yes Univers tartrate 50 6-25 ity of mg tablet 00:00: [place] [facility] pravastatin 2020-0 Yes 40mg Take 40 mg Univers 40 mg 6-25 by mouth. ity of tablet 00:00: [place] [facility] clopidogreL 2020-0 Yes 75mg Take 75 mg Univers 75 mg 6-25 by mouth. ity of tablet 00:00: [place] [facility] glipiZIDE 2020-0 Yes 10mg Take 10 mg Un bridger 10 mg 6-25 by mouth. ity of tablet 00:00: [place] [facility] losartan 50 2020-0 Yes Univer s mg tablet 6-25 ity of 00:00: [place] [facility] metoprolol 2020-0 Yes Univers tartrate 50 6-25 ity of mg tablet 00:00: [address] pravastatin 2020-0 Yes 40mg Take 40 mg Univers 40 mg 6-25 by mouth. ity of tablet 00:00: [address] clopidogreL 2020-0 Yes 75mg Take 75 mg Univers 75 mg 6-25 by mouth. ity of tablet 00:00: [place] [facility] glipiZIDE 2020-0 Yes 10mg Take 10 mg Un bridger 10 mg 6-25 by mouth. ity of tablet 00:00: [place] [facility] losartan 50 2020-0 Yes Univer s mg tablet 6-25 ity of 00:00: [address] metoprolol 2020-0 Yes Univers tartrate 50 6-25 ity of mg tablet 00:00: [address] pravastatin 2020-0 Yes 40mg Take 40 mg Univers 40 mg 6-25 by mouth. ity of tablet 00:00: [place] [facility] clopidogreL 2020-0 Yes 75mg Take 75 mg Univers 75 mg 6-25 by mouth. ity of tablet 00:00: [address] glipiZIDE 2020-0 Yes 10mg Take 10 mg Un bridger 10 mg 6-25 by mouth. ity of tablet 00:00: [address] losartan 50 2020-0 Yes Univer s mg tablet 6-25 ity of 00:00: [address] metoprolol 2020-0 Yes Univers tartrate 50 6-25 ity of mg tablet 00:00: [address] pravastatin 2020-0 Yes 40mg Take 40 mg Univers 40 mg 6-25 by mouth. ity of tablet 00:00: [place] [facility] clopidogreL 2020-0 Yes 75mg Take 75 mg Univers 75 mg 6-25 by mouth. ity of tablet 00:00: [place] [facility] glipiZIDE 2020-0 Yes 10mg Take 10 mg Un bridger 10 mg 6-25 by mouth. ity of tablet 00:00: [place] [facility] losartan 50 2020-0 Yes Univer s mg tablet 6-25 ity of 00:00: [place] [facility] metoprolol 2020-0 Yes Univers tartrate 50 6-25 ity of mg tablet 00:00: [address] Branch pravastatin 2020-0 Yes 40mg Take 40 mg Univers 40 mg 6-25 by mouth. ity of tablet 00:00: [address] Branch clopidogreL 2020-0 Yes 75mg Take 75 mg Univers 75 mg 6-25 by mouth. ity of tablet 00:00: [place] [facility] glipiZIDE 2020-0 Yes 10mg Take 10 mg Un bridger 10 mg 6-25 by mouth. ity of tablet 00:00: [address] Branch losartan 50 2020-0 Yes Univer s mg tablet 6-25 ity of 00:00: [address] metoprolol 2020-0 Yes Univers tartrate 50 6-25 ity of mg tablet 00:00: [address] pravastatin 2020-0 Yes 40mg Take 40 mg Univers 40 mg 6-25 by mouth. ity of tablet 00:00: [address] clopidogreL 2020-0 Yes 75mg Take 75 mg Univers 75 mg 6-25 by mouth. ity of tablet 00:00: [address] glipiZIDE 2020-0 Yes 10mg Take 10 mg Un bridger 10 mg 6-25 by mouth. ity of tablet 00:00: [address] Branch losartan 50 2020-0 Yes Univer s mg tablet 6-25 ity of 00:00: [address] metoprolol 2020-0 Yes Univers tartrate 50 6-25 ity of mg tablet 00:00: [address] pravastatin 2020-0 Yes 40mg Take 40 mg Univers 40 mg 6-25 by mouth. ity of tablet 00:00: [address] clopidogreL 2020-0 Yes 75mg Take 75 mg Univers 75 mg 6-25 by mouth. ity of tablet 00:00: [address] Branch glipiZIDE 2020-0 Yes 10mg Take 10 mg Un bridger 10 mg 6-25 by mouth. ity of tablet 00:00: [place] 00 [facility] losartan 50 2019-0 Yes Univer s mg tablet 6-25 ity of 00:00: [place] [facility] metoprolol 2020-0 Yes Univers tartrate 50 6-25 ity of mg tablet 00:00: [address] pravastatin 2019-0 Yes 40mg Take 40 mg Univers 40 mg 6-25 by mouth. ity of tablet 00:00: [place] 00 [facility] SITagliptin 2020-0 2021- No 25mg Take 25 mg Univers 25 mg 03-13 by mouth. ity of tablet 00:00: 04:59 [place] 00 :00 [facility] SITagliptin 2020-0 2021- No 25mg Take 25 mg Univers 25 mg 03-13 by mouth. ity of tablet 00:00: 04:59 [place] 00 :00 [facility] SITagliptin 2020-0 1- No 25mg Take 25 mg Univers 25 mg 03-13 by mouth. ity of tablet 00:00: 04:59 [place] 00 :00 [facility] SITagliptin 2020-0 2021- No 25mg Take 25 mg Univers 25 mg 03-13 by mouth. ity of tablet 00:00: 04:59 [place] 00 :00 [facility] SITagliptin 2020-0 2021- No 25mg Take 25 mg Univers 25 mg 03-13 by mouth. ity of tablet 00:00: 04:59 [place] 00 :00 [facility] SITagliptin 2020-0 2021- No 25mg Take 25 mg Univers 25 mg 03-13 by mouth. ity of tablet 00:00: 04:59 [place] 00 :00 [facility] SITagliptin 2020-0 2021- No 25mg Take 25 mg Univers 25 mg 03-13 by mouth. ity of tablet 00:00: 04:59 [place] 00 :00 [facility] SITagliptin 2020-0 2021- No 25mg Take 25 mg Univers 25 mg 03-13 by mouth. ity of tablet 00:00: 04:59 [place] 00 :00 [facility] SITagliptin 2020-0 2021- No 25mg Take 25 mg Univers 25 mg 03-13 by mouth. ity of tablet 00:00: 04:59 [place] 00 :00 [facility] SITagliptin 2020-0 2021- No 25mg Take 25 mg Univers 25 mg 03-13 by mouth. ity of tablet 00:00: 04:59 [place] 00 :00 [facility] SITagliptin 2020-0 2021- No 25mg Take 25 mg Univers 25 mg 03-13 by mouth. ity of tablet 00:00: 04:59 [place] 00 :00 [facility] SITagliptin 2020-0 2021- No 25mg Take 25 mg Univers 25 mg 03-13 by mouth. ity of tablet 00:00: 04:59 [place] 00 :00 [facility] SITagliptin 2020-0 2021- No 25mg Take 25 mg Univers 25 mg 03-13 by mouth. ity of tablet 00:00: 04:59 [place] 00 :00 [facility] SITagliptin 2020-0 2021- No 25mg Take 25 mg Univers 25 mg 03-13 by mouth. ity of tablet 00:00: 04:59 [place] 00 :00 [facility] SITagliptin 2020-0 2021- No 25mg Take 25 mg Univers 25 mg 03-13 by mouth. ity of tablet 00:00: 04:59 [place] 00 :00 [facility] SITagliptin 2020-0 2021- No 25mg Take 25 mg Univers 25 mg 03-13 by mouth. ity of tablet 00:00: 04:59 [place] 00 :00 [facility] SITagliptin 2020-0 2021- No 25mg Take 25 mg Univers 25 mg 03-13 by mouth. ity of tablet 00:00: 04:59 [place] 00 :00 [facility] SITagliptin 2020-0 2021- No 25mg Take 25 mg Univers 25 mg 03-13 by mouth. ity of tablet 00:00: 04:59 [place] 00 :00 [facility] SITagliptin 2020-0 2021- No 25mg Take 25 mg Univers 25 mg 03-13 by mouth. ity of tablet 00:00: 04:59 [place] 00 :00 [facility] SITagliptin 2020-0 2021- No 25mg Take 25 mg Univers 25 mg 03-13 by mouth. ity of tablet 00:00: 04:59 [place] 00 :00 [facility] SITagliptin 2020-0 2021- No 25mg Take 25 mg Univers 25 mg 03-13 by mouth. ity of tablet 00:00: 04:59 [place] 00 :00 [facility] SITagliptin 2020-0 2021- No 25mg Take 25 mg Univers 25 mg 03-13 by mouth. ity of tablet 00:00: 04:59 [place] 00 :00 [facility] SITagliptin 2020-0 2021- No 25mg Take 25 mg Univers 25 mg 03-13 by mouth. ity of tablet 00:00: 04:59 [place] 00 :00 [facility] SITagliptin 2020-0 2021- No 25mg Take 25 mg Univers 25 mg 03-13 by mouth. ity of tablet 00:00: 04:59 [place] 00 :00 [facility] SITagliptin 2020-0 2021- No 25mg Take 25 mg Univers 25 mg 03-13 by mouth. ity of tablet 00:00: 04:59 [place] 00 :00 [facility] SITagliptin 2020-0 2021- No 25mg Take 25 mg Univers 25 mg 03-13 by mouth. ity of tablet 00:00: 04:59 [place] 00 :00 [facility] SITagliptin 2020-0 2021- No 25mg Take 25 mg Univers 25 mg 03-13 by mouth. ity of tablet 00:00: 04:59 [place] 00 :00 [facility] SITagliptin 2020-0 2021- No 25mg Take 25 mg Univers 25 mg 03-13 by mouth. ity of tablet 00:00: 04:59 [place] 00 :00 [facility] SITagliptin 2020-0 2021- No 25mg Take 25 mg Univers 25 mg 03-13 by mouth. ity of tablet 00:00: 04:59 [place] 00 :00 [facility] SITagliptin 2020-0 2021- No 25mg Take 25 mg Univers 25 mg 03-13 by mouth. ity of tablet 00:00: 04:59 [place] 00 :00 [facility] SITagliptin 2020-0 2021- No 25mg Take 25 mg Univers 25 mg 03-13 by mouth. ity of tablet 00:00: 04:59 [place] 00 :00 [facility] Vital Signs Vital Name Observation Time Observation Value Comments Source Systolic blood 2021-06-08 19:46:00 140 mm[Hg] Univer sity of pressure [facility] Diastolic blood 2021-06-08 19:46:00 84 mm[Hg] Unive rsity of pressure [place] [facility] Heart rate 2021-06-08 19:46:00 80 /min [facility] [place] [facility] Body temperature 2021-06-08 19:38:00 36.83 [place] [facility] ers[facility] [place] [facility] Respiratory rate 2021-06-08 19:38:00 20 /min Univ ersity of [place] [facility] Body height 2021-06-08 19:38:00 162.6 cm [facility] [place] [facility] Body weight 2021-06-08 19:38:00 78.926 kg [facility] [place] [facility] BMI 2021-06-08 19:38:00 29.87 kg/m2 [facility]i ty of [place] [facility] Oxygen saturation in 2021-06-08 19:38:00 98 /min University of Arterial blood by [facility] Pulse oximetry Branch Systolic blood 2021-05-29 16:03:00 127 mm[Hg] Univer sity of pressure [place] [facility] Diastolic blood 2021-05-29 16:03:00 76 mm[Hg] Unive rsity of pressure [place] [facility] Heart rate 2021-05-29 16:03:00 90 /min [facility] [place] [facility] Body temperature 2021-05-29 16:03:00 36.39 [place] [facility] [place] [facility] Respiratory rate 2021-05-29 16:03:00 14 /min Univ ersity of [place] [facility] Body height 2021-05-29 16:03:00 165.1 cm [facility] [place] [facility] Body weight 2021-05-29 16:03:00 80.468 kg [facility] [place] [facility] BMI 2021-05-29 16:03:00 29.52 kg/m2 [facility] [place] [facility] Oxygen saturation in 2021-05-29 16:03:00 96 /min [facility] of Arterial blood by [facility] Pulse oximetry Branch Systolic blood 2021-04-27 14:36:00 115 mm[Hg] Univer sity of pressure [place] [facility] Diastolic blood 2021-04-27 14:36:00 70 mm[Hg] Unive rsity of pressure [place] [facility] Heart rate 2021-04-27 14:36:00 94 /min [facility] [place] [facility] Body temperature 2021-04-27 14:36:00 36.22 [place] [facility] [place] [facility] Respiratory rate 2021-04-27 14:36:00 16 /min Univ ersity [facility] [place] [facility] Body weight 2021-04-27 14:36:00 80.287 kg [facility]i [facility] [place] [facility] BMI 2021-04-27 14:36:00 26.91 kg/m2 [facility] [place] [facility] Oxygen saturation in 2021-04-27 14:36:00 96 /min [facility] of Arterial blood by [facility] Pulse oximetry Branch Systolic blood 2021-04-20 13:29:00 138 mm[Hg] Univer sity of pressure [place] [facility] Diastolic blood 2021-04-20 13:29:00 80 mm[Hg] Unive rsity of pressure [place] [facility] Heart rate 2021-04-20 13:29:00 80 /min [facility] [place] [facility] Body temperature 2021-04-20 13:29:00 36.83 [place] [facility] [place] [facility] Respiratory rate 2021-04-20 13:29:00 20 /min Univ [facility]ity [facility] [place] [facility] Body height 2021-04-20 13:29:00 172.7 cm [facility] [place] [facility] Body weight 2021-04-20 13:29:00 81.194 kg [facility] [place] [facility] BMI 2021-04-20 13:29:00 27.22 kg/m2 [facility] [place] [facility] Oxygen saturation in 2021-04-20 13:29:00 98 /min [facility] of Arterial blood by [facility] Pulse oximetry Branch Systolic blood 2021-03-16 21:15:00 142 mm[Hg] Univer sity of pressure [place] [facility] Diastolic blood 2021-03-16 21:15:00 83 mm[Hg] Unive rsity of pressure [place] [facility] Heart rate 2021-03-16 21:15:00 75 /min [facility] [place] [facility] Body temperature 2021-03-16 21:15:00 36.17 [place] [facility] [place] [facility] Respiratory rate 2021-03-16 21:15:00 18 /min Univ ers[facility] [place] [facility] Body height 2021-03-16 21:15:00 162.6 cm [facility] [place] [facility] Body weight 2021-03-16 21:15:00 82.192 kg [facility] [place] [facility] BMI 2021-03-16 21:15:00 31.10 kg/m2 [facility] [place] [facility] Oxygen saturation in 2021-03-16 21:15:00 98 /min [facility] of Arterial blood by [facility] Pulse oximetry Branch Systolic blood 2020-08-29 16:38:00 121 mm[Hg] Univer sity of pressure [place] [facility] Diastolic blood 2020-08-29 16:38:00 77 mm[Hg] Unive rsity of pressure [place] [facility] Heart rate 2020-08-29 16:38:00 74 /min [facility] [place] [facility] Body height 2020-08-29 16:38:00 165.1 cm [facility] [place] [facility] Body weight 2020-08-29 16:38:00 82.101 kg [facility] [place] [facility] BMI 2020-08-29 16:38:00 30.12 kg/m2 [facility] [place] [facility] Systolic blood 2020-07-28 21:40:00 116 mm[Hg] Univer sity of pressure [place] [facility] Diastolic blood 2020-07-28 21:40:00 85 mm[Hg] Unive rsity of pressure [place] [facility] Heart rate 2020-07-28 21:40:00 101 /min [facility] [place] [facility] Body weight 2020-07-28 21:40:00 80.287 kg [facility] [place] [facility] BMI 2020-07-28 21:40:00 29.45 kg/m2 [facility] ty of [facility] Oxygen saturation in 2020-07-28 21:40:00 95 /min [facility] of Arterial blood by [facility] Pulse oximetry Branch Systolic blood 2020-06-02 18:21:00 131 mm[Hg] Univer sity of pressure [place] [facility] Diastolic blood 2020-06-02 18:21:00 89 mm[Hg] Unive rsity of pressure [place] [facility] Heart rate 2020-06-02 18:21:00 91 /min [facility] [place] [facility] Body temperature 2020-06-02 18:21:00 36.72 [place] [facility] [place] [facility] Body height 2020-06-02 18:21:00 165.1 cm [facility] [place] [facility] Body weight 2020-06-02 18:21:00 80.559 kg [facility] [place] [facility] BMI 2020-06-02 18:21:00 29.55 kg/m2 [facility] [place] [facility] Oxygen saturation in 2020-06-02 18:21:00 97 /min [facility] of Arterial blood by [facility] Pulse oximetry Branch Systolic blood 2020-06-02 18:21:00 131 mm[Hg] Univer sity of pressure [place] [facility] Diastolic blood 2020-06-02 18:21:00 89 mm[Hg] Unive rsity of pressure [place] [facility] Heart rate 2020-06-02 18:21:00 91 /min [facility] [place] [facility] Body temperature 2020-06-02 18:21:00 36.72 [place] [facility] [place] [facility] Body height 2020-06-02 18:21:00 165.1 cm [facility] [place] [facility] Body weight 2020-06-02 18:21:00 80.559 kg [facility] [place] [facility] BMI 2020-06-02 18:21:00 29.55 kg/m2 [facility] [place] [facility] Oxygen saturation in 2020-06-02 18:21:00 97 /min [facility] of Arterial blood by [facility] Pulse oximetry Branch Systolic blood 2020-07-04 20:26:00 121 mm[Hg] Univer sity of pressure [place] [facility] Diastolic blood 2020-07-04 20:26:00 74 mm[Hg] Unive rsity of pressure [place] [facility] Heart rate 2020-07-04 20:26:00 97 /min [facility] [place] [facility] Body height 2020-07-04 20:26:00 165.1 cm [facility] [place] [facility] Body weight 2020-07-04 20:26:00 80.287 kg Universi ty [facility] BMI 2020-07-04 20:26:00 29.45 kg/m2 [facility] Oxygen saturation in 2020-07-04 20:26:00 97 /min [facility] of Arterial blood by [facility] Pulse oximetry Branch Procedures Procedure Date / Time Performing Clinician Source Performed POCT URINALYSIS AUTO 2021-06-08 19:43:00 Tatiana Rodriguez [facility] EXTERNAL PROVIDER RECORDS 2021-06-04 05:01:00 Doctor Unassigned, [facility] POCT URINALYSIS AUTO 2021-04-27 14:40:00 Felix Mao [facility] US ABDOMEN LIMITED 2021-04-24 18:03:28 Tatiana Rodriguez [facility] CT ABDOMEN PELVIS W WO 2021-04-10 16:55:51 [facility] ASSIGNMENT OF BENEFITS 2021-04-10 16:02:00 [facility] [place] [facility] URINE CULTURE 2021-03-24 16:55:00 Tatiana Rodriguez [place] [facility] PROSTATIC SPECIFIC 2021-03-24 16:52:00 Daylin [facility] ANTIGEN [facility] Branch COMP. METABOLIC PANEL 2021-03-24 16:52:00 Felix Mao [facility] ([id number]) [facility] POCT URINALYSIS AUTO 2021-03-16 21:32:00 Felix Mao [facility] REFERRAL- 2021-03-12 05:01:00 Doctor Nida, [facility] REQUEST/RESPONSE [place] [facility] EXTERNAL PROVIDER RECORDS 2020-07-16 05:01:00 Doctor Nida, [facility] [place] [facility] MR BRAIN WO CONTRAST WITH 2020-06-18 14:17:19 Alex Hall [facility] NEUROQUANT [facility] MEDICATION CORRESPONDENCE 2020-06-11 05:01:00 Doctor Nida, [facility] [place] [facility] COGNITIVE ASSESSMENT 2020-06-02 05:01:00 Doctor Unamarina, [facility] Name Medical Gates Encounters Start End Encounter Admission Attending Care Care Encounter Source Date/Time Date/Time Type Type Clinicians Facility Department ID 2021-11-27 2021-11-27 Outpatient RAJINDER [facility] [id number] Univers 11:00:00 11:00:00 TRACY [id number] [facility] 2021-11-16 2021-11-16 Outpatient R GUILLE [facility] [id number] -[id number] Univers 15:30:00 15:30:00 TATIANA [id number] [facility] 2021-10-12 2021-10-12 Telephone Isabel MSARIES 1.2.840.114 [id number] Univers 00:00:00 00:00:00 Alex PORTILLO 350.1.13.10 it[place] [phone] Nd dicky NAL 092 [facility] 2021-06-08 2021-06-08 [facility] 1.2.840.114 [id number] Univers 14:14:58 14:46:00 Visit Tatiana Caruso D[place] 350.1.13.10 it[place] [phone] [facility] nal 204 [facility] 2021-06-08 2021-06-08 Outpatient R GUILLE [facility] [id number] -[id number] Univers 14:30:00 14:30:00 TATIANA [id number] ity [facility] 2021-06-08 2021-06-08 [facility] [id number] Univers 14:30:00 14:30:[address] [facility] 2021-06-04 2021-06-04 Orders Doctor TRACY 1.2.840.114 [id number] Univers 00:00:00 00:00:00 Only Unassigned, DA 350.1.13.10 ity of [place] [facility] 4.2.7.2.686 Darren as [phone] [address] 2021-06-02 2021-06-02 Telephone Rajinder [facility] 1.2.589.842 [id number] Univers 00:00:00 00:00:00 Tracy Portillo 350.1.13.10 i ty [place] [phone] Nd dical nal 188 [facility] 2021-05-29 2021-05-29 Office Rajinder [facility] 1.2.840.114 [id number] Univers 10:49:22 11:08:59 Visit Tracy Portillo 350.1.13.10 i ty [place] [phone] Nd dical nal 188 [facility] 2021-05-29 2021-05-29 Outpatient R RAJINDER [facility] [id number] Univers 10:45:00 10:45:00 [facility] [id number] [facility] 2021-05-29 2021-05-29 Outpatient Tyson CALVILLO [facility] [id number] Univers 10:45:00 10:45:00 TRACY [facility] 2021-05-20 2021-05-20 Telephone [facility] 1.2.840.114 [id number] Univers 00:00:00 00:00:00 Alex Portillo 350.1.13.10 ity of [place] [phone] Nd dical [facility] 092 [facility] 2021-05-01 2021-05-01 Outpatient Tyson CALVILLO [facility] [id number] -[id number] Univers 09:00:00 09:00:00 TRACY [id number] [facility] 2021-05-01 2021-05-01 Outpatient Tyson CALVILLO [facility] [id number] Univers 09:00:00 09:00:00 [facility] 2021-04-27 2021-04-27 Office Daylin [facility] 1.2.840.114 [id number] Univers 09:21:02 10:51:30 Visit Rm, Adc Surg Spec Procedure Deneen 3 50.1.13.10 ity of [place] [phone] Nd dical nal 204 [facility] 2021-04-27 2021-04-27 Outpatient R DAYLIN [facility] [id number] Univers 09:45:00 09:45:00 [facility] [id number] [facility] 2021-04-27 2021-04-27 Outpatient R DAYLIN [facility] [id number] Univers 09:45:00 09:45:00 [facility] 2021-04-24 2021-04-24 [facility] 1.2.840.114 [id number] Univers 12:05:42 23:59:00 Encounter Tatiana Portillo 350.1.13.10 it[place] [phone] [facility] [address] 2021-04-24 2021-04-24 Outpatient R GUILLE, [facility] [id number] -[id number] Univers 13:00:00 13:00:00 TATIANA [id number] ity [facility] 2021-04-24 2021-04-24 [facility] [id number] Univers 00:00:00 00:00:00 TATIANA ity [facility] 2021-04-20 2021-04-20 Nurse Nurse, Adc Surgery [facility] 1.2. 840.114 [id number] Univers 08:06:57 08:25:21 Visit Tatiana Rodriguez 350.1.13.10 ity of [place] 4.2.7.2.686 Darrenisael s Professio [phone] Nd dic[address] 2021-04-20 2021-04-20 Outpatient R [facility] [id number] Univers 08:00:00 08:00:00 [id number] ity [facility] 2021-04-20 2021-04-20 Outpatient R [facility] [id number] Univers 08:00:00 08:00:00 ity [facility] 2021-04-17 2021-04-17 Case [facility] 1.2.840.114 [id number] Univers 00:00:00 00:00:00 Management Tatiana Portillo 350.1.13.10 ity of [place] 4.2.7.2.686 Darrena s Professio [phone] Nd dic[address] 2021-04-16 2021-04-16 Case [facility] 1.2.346.210 [id number] Univers 00:00:00 00:00:00 Management Maude N [facility] 350.1.13.10 ity of [place] 4.2.7.2.686 [facility] [phone] [facility] [address] 2021-04-10 2021-04-10 [facility] 1.2.192.341 [id number] Univers 11:00:00 23:59:00 Encounter Felix Portillo 350.1.13.10 ity of [place] [phone] [facility] [address] 2021-04-10 2021-04-10 [facility] [id number] Univers 11:00:00 11:00:00 FELIX [id number] ity [facility] 2021-04-10 2021-04-10 [facility] [id number] Univers 00:00:00 00:00:00 FELIX ity [facility] 2021-04-10 2021-04-10 Orders Doctor TRACY 1.2.840.114 [id number] Univers 00:00:00 00:00:00 Only Unassigned, DA 350.1.13.10 ity of [place] 4.2.7.2.686 Darren as [phone] [facility] [address] 2021-03-27 2021-03-27 Telephone [facility] 1.2.840.114 [id number] Univers 00:00:00 00:00:00 [facility] Deneen 350.1.13.10 i [place] [phone] Nd dical nal 204 [facility] 2021-03-24 2021-03-24 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 [facility] 1.2.8 40.114 [id number] Univers 11:38:10 11:53:10 Visit Daylin Felix Portillo 350.1.13.10 ity of [place] [phone] Nd dical nal 353 [facility] 2021-03-24 2021-03-24 Outpatient R [facility] [id number] Univers 11:45:00 11:45:00 [id number] ity [facility] 2021-03-24 2021-03-24 [facility] [id number] Univers 11:45:00 11:45:00 [facility] 2021-03-19 2021-03-19 Telephone [facility] 1.2.902.107 [id number] Univers 00:00:00 00:00:00 Tatiana Portillo 350.1.13.10 it[place] of [place] [phone] Nd dical nal 204 [facility] 2021-03-16 2021-03-16 Office [facility] 1.2.840.114 [id number] Univers 14:53:26 16:44:15 Visit [facility] [place] 350.1.13.10 i ty of [place].2.[place] [phone] Nd dic[address] 2021-03-16 2021-03-16 Outpatient R DAYLIN [facility] [id number] Univers 15:15:00 15:15:00 FELIX [id number] ity [facility] 2021-03-16 2021-03-16 [facility] [id number] Univers 15:15:00 15:15:00 FELIX ity [facility] 2021-03-12 2021-03-12 Orders Doctor TRACY 1.2.840.114 [id number] Univers 00:00:00 00:00:00 Only Unassigned, DA 350.1.13.10 ity of [place] [facility] 4.2.7.2.686 Darren as [phone] [facility] [address] 2021-01-01 2021-01-01 Office NEETA Keller 1.2.514.194 [id number] Univers 09:52:52 10:16:28 Visit Selina Tay 350.1.13.10 it y of [facility] 4.2.7.2.686 Darren as BANK [phone] [facility] BLDG. [address] 2021-01-01 2021-01-01 Outpatient R KRISHNA [facility] [id number] Univers 09:45:00 09:45:00 SELINA [id number] ity [facility] 2021-01-01 2021-01-01 Outpatient R KRISHNA [facility] [id number] Univers 09:45:00 09:45:00 SELINA ity [facility] 2020-12-15 2020-12-15 Telephone Isabel [facility] 1.2.840.114 [id number] Univers 00:00:00 00:00:00 Alex Portillo 350.1.13.10 it[place] of [place] [phone] Nd dical nal 092 [facility] 2020-09-18 2020-09-18 Office Krishna ELIO 1.2.821.387 [id number] Univers 09:53:46 11:32:24 Visit Selina Tay 350.1.13.10 it y of [facility] 4.2.7.2.686 Darren as BANK [phone] [facility] BLDG. [address] 2020-09-18 2020-09-18 Outpatient R KRISHNA [facility] [id number] Univers 10:00:00 10:00:00 SEILNA [id number] ity [facility] 2020-09-18 2020-09-18 Outpatient R KRISHNA [facility] [id number] Univers 10:00:00 10:00:00 [facility] 2020-08-29 2020-08-29 Office [facility] 1.2.840.114 [id number] Univers 10:27:57 12:28:14 Visit Alex Portillo 350.1.13.10 ity [facility] 4.2.7.2.[place] [phone] [address] 2020-08-29 2020-08-29 Outpatient R ALEX HALL [facility] [id number] Univers 10:40:00 10:40:00 [facility] H[facility] [id number] [facility] 2020-08-29 2020-08-29 Outpatient R ALEX HALL [facility] [id number] Univers 10:40:00 10:40:00 ALEX HALLmariely [facility] 2020-08-05 2020-08-05 Telephone Isabel, [facility] 1.2.840.114 [id number] Univers 00:00:00 00:00:00 Alex Portillo 350.1.13.10 ity of [place] [phone] Nd dic[address] 2020-07-31 2020-07-31 Telephone Isabel [facility] 1.2.840.114 [id number] Univers 00:00:00 00:00:00 Alex Portillo 350.1.13.10 ity of [place] [phone] [address] 2020-07-28 2020-07-28 Outpatient ALEX JOY [facility] [id number] Univers 16:00:00 16:00:00 ALEX HALL [id number] ity [facility] 2020-07-28 2020-07-28 Outpatient R ALEX HALL [facility] [id number] Univers 16:00:00 16:00:00 [facility] 2020-07-28 2020-07-28 Office [facility] 1.2.840.114 [id number] Univers 15:29:13 15:49:13 Visit Alex Portillo 350.1.13.10 it[place] of [place] [phone] [address] 2020-07-24 2020-07-24 Telephone Isabel [facility] 1.2.840.114 [id number] Univers 00:00:00 00:00:00 Alex Portillo 350.1.13.10 ity of [place].2.[place] [phone] [address] 2020-07-16 2020-07-16 Orders Doctor TRACY 1.2.840.114 [id number] Univers 00:00:00 00:00:00 Only Unassigned, DA 350.1.13.10 ity of [place] [facility] 4.2.7.2.686 Darren as [phone] [address] 2020-06-02 2020-07-04 Office [facility] 1.2.840.114 [id number] 12:52:02 17:50:05 Visit Alex Portillo 350.1.13.10 [place] 4.2.7.2.686 Professio [phone] [address] 2020-06-02 2020-07-04 Office Isabel [facility] 1.2.840.114 [id number] Univers 12:52:02 17:50:05 Visit Alex Portillo 350.1.13.10 ity of [place].2.[place] [phone] Nd dical nal [address] [place] [address] 2020-07-04 2020-07-04 Office Isabel [facility] 1.2.840.114 [id number] Univers 14:58:19 15:47:39 Visit Alex Portillo 350.1.13.10 ity [facility] 4.2.7.2.[place] [phone] Nd dic[address] 2020-07-04 2020-07-04 Outpatient Tyson ALEX HALL [facility] [id number] Univers 15:00:00 15:00:00 ALEX HALL [id number] [facility] 2020-07-04 2020-07-04 Outpatient ALEX JOY [facility] [id number] Univers 15:00:00 15:00:00 ALEX HALL [facility] 2020-06-18 2020-06-18 [facility] 1.2.282.798 [id number] Univers 07:59:30 23:59:00 Encounter Alex Portillo 350.1.13.10 ity [facility] 4.2.7.2.[place] [phone] [facility] [address] [place] [address] 2020-06-18 2020-06-18 Outpatient ALEX JOY [facility] [id number] Univers 00:00:00 00:00:00 ALEX HALL [facility] 2020-06-18 2020-06-18 Outpatient ALEX JOY [facility] [id number] Univers 00:00:00 00:00:00 ALEX HALL mariely [facility] 2020-06-18 2020-06-18 [place] Isabel [facility] 1.2.840.114 [id number] Univers 00:00:00 00:00:00 Alex Portillo 350.1.13.10 ity of [place] [phone] Nd dic[address] 2020-06-11 2020-06-11 Orders Doctor TRACY 1.2.840.114 [id number] Univers 00:00:00 00:00:00 Only Unassigned, DA 350.1.13.10 ity of [place] [facility] 4.2.7.2.686 Darren as [phone] [address] 2020-06-10 2020-06-10 Refmarilyn Hall [facility] 1.2.840.114 [id number] Univers 00:00:00 00:00:00 Alex Patricia Deneen 350.1.13.10 ity of [place].2.[place] [phone] [address] 2020-06-02 2020-06-02 Outpatient R ALEX HALL [facility] [id number] Univers 13:00:00 13:00:00 ALEX HALL [facility] 2020-06-02 2020-06-02 Orders Doctor TRACY 1.2.840.114 [id number] Univers 00:00:00 00:00:00 Only Unassigned, DA 350.1.13.10 ity of [place] [facility] 4.2.7.2.686 Darren as [phone] [address] Results Test Description Test Time Test [...] 3267) clear Lab Interpretation (test code = 09945-6) Abnormal [facility] URINALYSIS, [id number] 19:44:00 Test Item Value Reference Range Interpretation [...] 3267) Lab Interpretation (test code Abnormal = 95175-0) [facility] URINALYSIS, [id number] 19:44:00 Test Item Value Reference Range Interpretation [...] 3267) Lab Interpretation (test code Abnormal = 26450-4) [facility] URINALYSIS, [id number] 14:42:00 Test Item Value Reference Range Interpretation [...] 3267) Lab Interpretation (test Abnormal code = 47897-3) [facility] URINALYSIS, [id number] 14:42:00 Test Item Value Reference Range Interpretation [...] 3267) Lab Interpretation (test Abnormal code = 37014-5) [facility] [id number] 14:42:00 Test Item Value Reference Range Interpretation [...] 3267) Lab Interpretation (test Abnormal code = 38674-9) [facility] ABDOMEN [id number] 22:00:11 Subcentimeter gallbladder wall polyp. Otherwise, unremarkable [...] portal vein was evaluated with color Doppler imaging.Investor Relations Associate images were obtained for the record. COMPARISON: [...] cm. IVC:IVC is normal in appearancewhere visualized. [facility], Radiant Results Inft User - 04/24/2021 5:16 PM CDT EXAM: US ABDOMEN LIMITEDHISTORY: 75 years-old Male with evaluatefor gallbladder polyp found on CTscan. .TECHNIQUE: Limited abdominal ultrasound was performed focused on the rightupper quadrant. Main portal vein was evaluated with color Doppler imaging.Investor Relations Associate images were obtained for the record.COMPARISON: CT [...] havereviewed this study and agree with the abovereport.[facility] PELVIS W WO [id number] 18:57:151. There is an 8 mm enhancing [...] the prostate gland.RL: 4131 End of report [facility]CH[facility] CenterUR[facility] [id number] 17:07:04 Test Item Value Reference Range Interpretation Comments URINE CULTURE (test No aerobic growth (< code = 630-4) 1000 CFU/mL) [facility] SPECIFIC [id number] 19:54:14 Test Item Value Reference Range Interpretation Comments PSA (test code = 3.77 ng/mL See_Comment [Automated [id number]) message] The system which generated this result transmitted reference range : <=4.00. The reference range was not used to interpret this result as normal/abnormal . TEA (test code = TEA) Biotin has been reported to cause a negative bias, interpret results relative to patient's use of biotin. Lab Interpretation Normal (test code = 93648-4) [facility]. METABOLIC PANEL (94107)2021-03-24 19:29:10 Test Item Value Reference Range Interpretation Comments NA (test code = 135 mmol/L 135-145 7199808472) K (test code = 4.6 mmol/L 3.5-5.0 7449954114) CL (test code = 102 mmol/L 98-108 9408369934) CO2 TOTAL (test code = 25 mmol/L 23-31 7727900902) AGAP (test code = 2-16 9311556519) BUN (test code = 17 mg/dL 7-23 4230247141) GLUCOSE (test code = 176 mg/dL 70-110 H 2689450928) CREATININE (test code = 0.83 mg/dL 0.60-1.25 2165133397) TOTAL BILI (test code = 0.6 mg/dL 0.1-1.2 1644866733) CALCIUM (test code = 10.2 mg/dL 8.6-10.6 2980266280) T PROTEIN (test code = 7.3 g/dL 6.3-8.2 5514035146) ALBUMIN (test code = 4.0 g/dL 3.5-5.0 3902491403) ALK PHOS (test code = 72 U/L 34-122 9851012509) ALTv (test code = 17 U/L 5-50 1742-6) AST(SGOT) (test code = 18 U/L 13-40 2352738837) eGFR (test code = mL/min/1.73m2 9063425659) TEA (test code = TEA) Association of [...] tests). Lab Interpretation Abnormal (test code = 53617-6) [facility] URINALYSIS, [id number] 21:34:00 Test Item Value Reference Range Interpretation [...] 3267) Lab Interpretation (test code Abnormal = 84551-6) [facility] URINALYSIS, [id number] 21:34:00 Test Item Value Reference Range Interpretation [...] 3267) Lab Interpretation (test code Abnormal = 00925-1) [facility] WO CONTRAST WITH [id number] 15:25:23 No acute intracranial abnormality. NeuroQuant Age Related Atrophy report demonstrates Normal Scan:Does notsupport neurodegeneration. EXAMINATION: MR BRAIN WO CONTRAST WITH NEUROQUANT HISTORY: Suspected Alzheimer's. COMPARISON: None. Technique: Multiplanar multisequence MRI of the brain was performed withoutintravenous contrast administration. Quantitative volumetry of the brain was performed using NeuroQuant([facility], [place], [place]) software package. The NeuroQuantanalysis was based [...] were within 2 SD of the mean. [facility], Radiant Results Inft User - 06/18/2020 10:26 AM CDTEXAMINATION: MR BRAIN WO CONTRAST WITH NEUROQUANTHISTORY: Suspected Alzheimer's. COMPARISON: None. Technique: Multiplanar multisequence MRI of the brain was performed withoutintravenous contrast administration. Quantitative volumetry of the brain was performed using [employer]([facility], [place], [place]) software package. The NeuroQuantanalysis was based [...] Atrophy report demonstrates Normal Scan: Does notsupport neurodegeneration.[facility]"
[2021-10-15] MEDS ORDERED: NA CHLORIDE 0.9% 250 ML ONE (10:54)
[2021-10-15] MEDS ORDERED: VANCOMYCIN 1 GM/VIAL ONE (10:54)
[2021-10-15 11:21] LABS: Protime INR 1.18
[2021-10-15 11:23] LABS: Absolute Lymphocytes (CBC) 1.1 K/uL (0.7-4.9); Hematocrit 51.5 % (39.6-49.0); Lymphocytes % 6.8 % (15.3-44.8); RBC Red Blood Cell Count 5.58 M/uL (4.33-5.43)
--- NOTE | 2021-10-15 11:28 | ER ---
Nurse's Notes [facility] Name: Todd Alvarez Age: 76 yrs Sex: Male : 1945 Arrival Date: 10/15/2021 Time: 09:37 Bed 18 Private MD: Uzair Solitario Diagnosis: Other synovitis and tenosynovitis, left hand Presentation: 10/15 09:55 Chief complaint: Patient states: Pt states he was here x 2 days ago for splinter in the ic1 L pointer finger. Was given an injection in the finger and states the swelling has worsened since then. Pt denies fever. Coronavirus screen: Vaccine status: Patient reports receiving the 2nd dose of the covid vaccine. Ebola Screen: No symptoms or risks identified at this time. Initial Sepsis Screen: Does the patient meet any 2 criteria? HR > 90 bpm. No. Patient's initial sepsis screen is negative. Does the patient have a suspected source of infection? No. Patient's initial sepsis screen is negative. Risk Assessment: Do you want to hurt yourself or someone else? Patient reports no desire to harm self or others. Onset of symptoms is unknown. 09:55 Method Of Arrival: Ambulatory ic1 09:55 Acuity: AIDE 3 ic1 Triage Assessment: 09:57 General: Appears in no apparent distress. comfortable, Behavior is calm, cooperative. ic1 Pain: Complains of pain in dorsal aspect of distal phalanx of left index finger, dorsal aspect of middle phalanx of left index finger, dorsal aspect of proximal phalanx of left index finger and left index fingernail. Historical: - Allergies: 09:57 No Known Allergies; ic1 - PMHx: 09:57 diabetes mellitus; Hypertensive disorder; ic1 - Immunization history:: Adult Immunizations up to date. - Social history:: Smoking status: Patient reports the use of cigarette tobacco products, smokes one-half pack cigarettes per day. Screenin:48 Abuse screen: Denies threats or abuse. Denies injuries from another. Nutritional luis screening: No deficits noted. Tuberculosis screening: No symptoms or risk factors identified. Fall Risk None identified. Assessment: 10:48 General: Appears in no apparent distress. Behavior is calm, cooperative. Pain: luis Complains of pain in dorsal aspect of distal phalanx of left index finger, dorsal aspect of middle phalanx of left index finger, dorsal aspect of proximal phalanx of left index finger, palmar aspect of distal phalanx of left index finger, palmar aspect of middle phalanx of left index finger and palmar aspect of proximal phalanx of left index finger. Musculoskeletal: Reports pain in dorsal aspect of distal phalanx of left index finger, dorsal aspect of middle phalanx of left index finger, dorsal aspect of proximal phalanx of left index finger, palmar aspect of distal phalanx of left index finger, palmar aspect of middle phalanx of left index finger, palmar aspect of proximal phalanx of left index finger and left index fingernail Pain is 6 out of 10 on a pain scale. 11:57 Reassessment: Initiated transfer with [facility]. Spoke with Anirudh. Will call ss back momentarily. Vital Signs: 09:55 BP 142 / 72; Pulse 111; Resp 20; Temp 98.9(O); Pulse Ox 97% ; ic1 11:09 BP 155 / 77; Pulse 97; Resp 18; Pulse Ox 98% on R/A; luis ED Course: 09:37 Patient arrived in ED. am2 09:41 Uzair Solitario MD is Private Physician. as 09:44 Ashish Esposito PA is PHCP. cp 09:44 Jose Eduardo Monroy MD is Attending Physician. cp 09:57 Triage completed. ic1 09:57 Arm band placed on right wrist. ic1 10:48 Patient has correct armband on for positive identification. Bed in low position. luis 10:48 No provider procedures requiring assistance completed. luis 10:57 XRAY Hand LEFT 3 View In Process Unspecified. EDMS 11:08 Basic Metabolic Panel Sent. luis 11:08 CBC with Diff Sent. luis 11:08 LFT's Sent. luis 11:08 PT-INR Sent. luis 11:08 Inserted saline lock: 20 gauge in right forearm, using aseptic technique. luis Administered Medications: 11:26 Discontinued: vancoMYCIN 1 grams IVPB once over 2 hrs cp 11:08 Drug: vancoMYCIN 1 grams Route: IVPB; Infused Over: 2 hrs; Site: right forearm; luis 11:39 CANCELLED (Physician Discretion): Clindamycin 900 mg IM once cp 11:45 Drug: Clindamycin 900 mg Route: IVPB; Infused Over: 30 mins; Site: right forearm; luis Outcome: 11:27 Discharge ordered by MD. cp 12:13 Discharge ordered by MD. cp 12:48 Patient left the ED. ss Signatures: Dispatcher [employer] Erika Brown Shelby RN RN Ashish Esposito PA PA cp Moreno, Amanda am2 Au-Stager, Heather, RN RN ha Creggett, Iesha, RN RN ic1
--- NOTE | 2021-10-15 11:28 | EDPHYS ---
Physician Documentation [facility] Name: Todd Alvarez Age: 76 yrs Sex: Male : 1945 Arrival Date: 10/15/2021 Time: 09:37 Bed 18 Private MD: Uzair Solitario ED Physician Jose Eduardo Monroy HPI: 10/15 10:40 This 76 yrs old Male presents to ER via Ambulatory with complaints of finger cp infection. 10:40 The patient or guardian reports pain, swelling, tenderness. cp 10:40 The complaints affect the left index finger. Context: Patient reports left index finger cp was stuck with wooden splinter about 6 days ago. Patient came to this ED 2 days ago and was given RX for oral antibiotics. Patient reports he has not been able to fill prescription for antibiotics until today. Reports increasing pain, swelling and erythema. Historical: - Allergies: 09:57 No Known Allergies; ic1 - PMHx: 09:57 diabetes mellitus; Hypertensive disorder; ic1 - Immunization history:: Adult Immunizations up to date. - Social history:: Smoking status: Patient reports the use of cigarette tobacco products, smokes one-half pack cigarettes per day. ROS: 10:45 Constitutional: Negative for body aches, chills, fever, poor PO intake. cp 10:45 Respiratory: Negative for cough, shortness of breath, wheezing. 10:45 Abdomen/GI: Negative for abdominal pain, nausea, vomiting, and diarrhea. 10:45 MS/extremity: Positive for decreased range of motion, erythema, pain, swelling, tenderness, of the left index finger. 10:45 All other systems are negative. Exam: 10:48 Constitutional: The patient appears in no acute distress, alert, awake, non-toxic, well cp developed, well nourished. 10:48 Head/Face: Normocephalic, atraumatic. cp 10:48 Eyes: Periorbital structures: appear normal, Conjunctiva: normal, no exudate, no injection, Lids and lashes: appear normal, bilaterally. 10:48 ENT: External ear(s): are unremarkable, Nose: is normal, Mouth: Lips: moist, Oral mucosa: moist, Posterior pharynx: Airway: no evidence of obstruction, patent. 10:48 Chest/axilla: Inspection: normal. 10:48 Cardiovascular: Rate: normal. 10:48 Respiratory: the patient does not display signs of respiratory distress, Respirations: normal, no use of accessory muscles, no retractions. 10:48 Abdomen/GI: Exam negative for discomfort, distension, guarding, Inspection: abdomen appears normal. 10:48 Musculoskeletal/extremity: Extremities: grossly normal except: noted in the left index finger: circumferential swelling and erythema, marked tenderness to palpation along flexor surface of finger, marked pain with flexion of left index finger, Perfusion: the extremity is normally perfused throughout. Vital Signs: 09:55 BP 142 / 72; Pulse 111; Resp 20; Temp 98.9(O); Pulse Ox 97% ; ic1 11:09 BP 155 / 77; Pulse 97; Resp 18; Pulse Ox 98% on R/A; luis MDM: 10:25 Patient medically screened. cp 12:10 Data reviewed: vital signs, nurses notes, lab test result(s), radiologic studies, plain cp films. 12:10 Counseling: I had a detailed discussion with the patient and/or guardian regarding: the cp historical points, exam findings, and any diagnostic results supporting the discharge/admit diagnosis, lab results, radiology results, need for immediate f/u with hand surgery. 10/15 10:46 Order name: Basic Metabolic Panel 10/15 10:46 Order name: CBC with Diff 10/15 11:27 Interpretation: Normal except: WBC 16.60; RBC 5.58; HCT 51.5; CUCA% 85.6; LYM% 6.8; NEUT cp A 14.2. 10/15 10:46 Order name: LFT's 10/15 10:46 Order name: PT-INR; Complete Time: 11:26 10/15 11:26 Order name: CBC Smear Scan EDMS 10/15 10:32 Order name: XRAY Hand LEFT 3 View; Complete Time: 11:57 10/15 11:57 Interpretation: Report reviewed. 10/15 10:46 Order name: Cardiac monitoring; Complete Time: 11:08 10/15 10:46 Order name: IV Saline Lock; Complete Time: 11:08 10/15 10:46 Order name: Labs collected and sent; Complete Time: 11:08 10/15 10:46 Order name: O2 Per Protocol; Complete Time: 11: 10/15 10:46 Order name: O2 Sat Monitoring; Complete Time: 11:08 cp 10/15 10:46 Order name: NPO; Complete Time: 11: cp Administered Medications: 11:26 Discontinued: vancoMYCIN 1 grams IVPB once over 2 hrs cp 11:08 Drug: vancoMYCIN 1 grams Route: IVPB; Infused Over: 2 hrs; Site: right forearm; luis 11:39 CANCELLED (Physician Discretion): Clindamycin 900 mg IM once cp 11:45 Drug: Clindamycin 900 mg Route: IVPB; Infused Over: 30 mins; Site: right forearm; luis Disposition: 14:25 Co-signature as Attending Physician, Jose Eduardo Monroy MD I agree with the assessment and kdr plan of care. Disposition Summary: 10/15/21 12:13 Discharge Ordered Location: Home(10/15/21 12:13) cp Problem: new(10/15/21 12:13) cp Symptoms: have improved(10/15/21 12:13) cp Condition: Stable(10/15/21 12:13) cp Diagnosis - Other synovitis and tenosynovitis, left hand(10/15/21 12:13) cp Followup: cp - With: Private Physician - When: DR Elias Lerner at 1400 today - Reason: Recheck today's complaints Discharge Instructions: - Discharge Summary Sheet cp - Infectious Finger Tenosynovitis cp Forms: - Medication Reconciliation Form cp - Thank You Letter cp - Antibiotic Education cp - Prescription Opioid Use cp Prescriptions: - Clindamycin HCl 300 mg Oral Capsule - take 1 capsule by ORAL route every 6 hours for 10 days; 40 capsule; Refills: 0, cp Product Selection Permitted Signatures: Dispatcher [employer] EDJose Eduardo Salas MD MD [facility] Ashish Esposito PA PA cp Darlene Nevarez RN RN Chacha Bautista RN RN ic1 Corrections: (The following items were deleted from the chart) 11:29 11:27 Other synovitis and tenosynovitis, left hand cp cp 11:31 11:29 Cellulitis of left upper limb - left hand cp cp 11:39 11:26 Clindamycin 900 mg IM once ordered. cp cp 11:57 11:27 Home cp cp 11:57 11:27 new cp cp 11:57 11:27 are unchanged cp cp 11:57 11:27 Stable cp cp 11:57 11:31 Other synovitis and tenosynovitis, left hand cp cp :10/14 10:45 Constitutional: Negative for body aches, chills, fever, poor PO intake, cp cp 10/15 18:10/14 10:45 MS/extremity: Positive for decreased range of motion, erythema, pain, cp swelling, tenderness, of the left index finger, cp 10/15 17:10/14 10:45 Respiratory: Negative for cough, shortness of breath, wheezing, cp cp 10/15 18:10/14 10:45 Abdomen/GI: Negative for abdominal pain, nausea, vomiting, and diarrhea, cp cp 10/15 17:10/14 10:45 All other systems are negative, cp cp
--- NOTE | 2021-10-15 11:30 | RAD REPORT ---
EXAM DESCRIPTION: RAD - Hand Left 3 View - 10/15/2021 10:57 am CLINICAL HISTORY: PAIN, foreign body removal COMPARISON: October 13 FINDINGS: No acute bone or joint finding. Degenerative changes seen on the prior day study remain. S econd digit soft tissue swelling remains. At the foreign body removal site there is no radiographic e vidence for retained fragment. No abnormal air in the soft tissues. IMPRESSION: Left second digit soft tissue swelling remains. No radiographic evidence for retained fo reign body.
[2021-10-15] MEDS ORDERED: CLINDAMYCIN 900MG/D5W 900 MG/50 ML IVPB IV ONE (11:39)
[2021-10-15 12:08] LABS: ALT/SGPT 14 U/L (12-78); Albumin 3.4 g/dL (3.4-5.0); Alkaline Phosphatase 88 U/L (45-117); BUN Blood Urea Nitrogen 22 mg/dL (7-18); Bicarbonate 21 mmol/L (21-32); Bilirubin Direct 0.3 mg/dL (0-0.2); Bilirubin Total 0.9 mg/dL (0.2-1.0); Glucose Level 255 mg/dL (74-106); Potassium 4.3 mmol/L (3.5-5.1); Protein, Total 8.9 g/dL (6.4-8.2); Sodium Level 133 mmol/L (136-145)
[2021-10-15 12:10] LABS: White Blood Cell Scan OK (OK)
[2021-10-15 12:11] LABS: Blood Morphology Comment NOT SEEN (NOT SEEN); Platelet Estimate ADEQ
[2021-10-15 12:13] LABS: AST/SGOT < 3 U/L (15-37)
[2021-10-15 12:56] VITALS: TEMP 98.9
[2021-10-15 12:57] VITALS: BP 155/77; O2SAT 98
== END 2021-10-15 12:48 | disposition home or self-care (01) ==
LOC: ER 09:36
DX: M65.842 Other synovitis and tenosynovitis, left hand (principal); I10 Essential (primary) hypertension; F17.210 Nicotine dependence, cigarettes, uncomplicated
CPT/HCPCS: 85025; 80048; 36415; 85610; 80076; 73130; 96375; 96374; 99284; J3370; J7050